=== PATIENT | female | born 1995 | race Caucasian/White ===

== ENCOUNTER → 2017-06-16 18:37 | Outpatient (CLI) | payer MEDICAID, SELFPAY | PROVIDERS: Family Provider Internal Medicine; PCP Internal Medicine; Visit Provider Obstetrics & Gynecology | DX: N76.0 Acute vaginitis (principal) | CPT/HCPCS: 87070; 87205 ==

== ENCOUNTER → 2017-06-25 14:26 | Outpatient (CLI) | payer MEDICAID, SELFPAY ==
[2017-06-25 16:42] LABS: Chlamydia Trachomatis by PCR Negative (Negative); Neisserai gonorrhoeae by PCR Negative (Negative); Probe Check PASS; Sample Adequacy Control PASS; Specimen Processing Control PASS
== END ==
PROVIDERS: Visit Provider Nurse Practitioner Women's Health
DX: N89.8 Other specified noninflammatory disorders of vagina (principal)
CPT/HCPCS: 87070; 87205; 87491; 87591

== ENCOUNTER 2017-08-20 17:15 | Emergency (ER) | payer MEDICAID, SELFPAY ==
--- NOTE | 2017-08-20 17:15 | DT_ITS ---
This patient was seen during an EMR downtime August 18, 2017 - August 25, 2017. This patient may have a combination of paper and electronic documentation or all paper documentation. All documentation is viewable within the e-chart portion of [employer] for each patient visit.
== END 2017-08-20 20:05 | disposition home or self-care (01) ==
LOC: ED 08-22 11:56
PROVIDERS: Emergency Provider Emergency Medicine
DX: G43.909 Migraine, unspecified, not intractable, without status migrainosus (principal); J45.909 Unspecified asthma, uncomplicated; F32.9 Major depressive disorder, single episode, unspecified
CPT/HCPCS: 96361; 96374; 96375; 99283

== ENCOUNTER 2017-08-27 20:50 | Emergency (ER) | payer MEDICAID, SELFPAY ==
[2017-08-27 20:52] VITALS: BP 126/65; PULSE 76; RESP 16; TEMP 36.6; O2SAT 98; BMI 30.2
--- NOTE | 2017-08-27 21:05 | RAD_ITS ---
STUDY: X-RAY - RIGHT KNEE REASON FOR EXAM: Female, 22 years old. Knee pain TECHNIQUE: 4 view(s) of the knee. COMPARISON: None. FINDINGS: Normal visualized distal femur. Normal visualized proximal tibia and fibula. Normal proximal tibiofibular articulation. Narrowed medial femorotibial compartment. Normal lateral femorotibial compartment. Narrowed lateral patellofemoral articulation. The soft tissue structures are unremarkable. RAD/Knee 4 or More Views IMPRESSION: Premature degenerative changes possibly on the basis of old trauma distal or cartilaginous injuries.. No evidence for acute fracture. MRI would be helpful for further evaluation if indicated Electronically Signed: Taco Cowan MD at 21:35 EDT , Service support ,
--- NOTE | 2017-08-27 22:19 | ED.DCSUM_ITS ---
- ER Visit Summary Date of Service: 08/27/17 Chief Complaint: [Right knee pain] History of Present Illness: The patient is a 22 F [who presents the emergency department with chronic right knee pain since she was a child. She was told she may need a knee replacement. 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 Ibuprofen and Tylenol are no longer working. He gives out on her frequently. She has had no trauma. She does have asthma but had no other medical problems and they are unsure why it is caused her so much problem] Physical Examination: [] Examination of the right lower extremity reveals a normal-appearing knee there is no effusion swelling or ecchymosis. There is no skin discoloration she has strong DP pulses. Anterior drawer sign is negative. She has mild pain with medial stress. She can fully extend. There is no obvious joint laxity Test Results: [] Emergency Department Course and Treatment: [X-ray shows premature degenerative changes and recommends the possibility of an MRI. The patient has never had an MRI in the past. She does have a primary care doctor. We will start her on Medrol she will wear a knee brace ice and elevate 3 times a day. She was given a work excuse for today and tomorrow and will follow up with Dr. Sue] Treatment Plan: [] Disposition: [disCharge] Impression: [Chronic right knee pain] This note was generated with [employer] dictation software. It may contain incorrect words, spelling, and punctuation that were not noted in review of the chart prior to signing ED Disposition - Plan for ED Patient: Chief Complaint: Lower Extremity Injury Referrals: Marisa Sue MD [Primary Care Provider] -
--- NOTE | 2017-08-27 22:19 | ED.DEP ---
ED Disposition - Plan for ED Patient: Chief Complaint: Lower Extremity Injury Instructions: ED Knee Pain [facility] Prescriptions: MethylPREDNISolone DosePak [Medrol DosePak] 4 mg PO UD #1 box Referrals: Marisa Sue MD [Primary Care Provider] - 5-7 Days Additional Instructions: wear sleeve knee brace ice 3 x daily for 15 minutes keep elevated in evening
== END 2017-08-27 22:28 | disposition home or self-care (01) ==
PROVIDERS: Emergency Provider Emergency Medicine; Family Provider Internal Medicine; PCP Internal Medicine
DX: M25.561 Pain in right knee (principal); G89.29 Other chronic pain; J45.909 Unspecified asthma, uncomplicated
CPT/HCPCS: 73564; 99282

== ENCOUNTER → 2017-09-16 13:05 | Outpatient (CLI) | payer MEDICAID, SELFPAY ==
[2017-09-16 16:51] LABS: Chlamydia Trachomatis by PCR Negative (Negative); Neisserai gonorrhoeae by PCR Negative (Negative); Probe Check PASS; Sample Adequacy Control PASS; Specimen Processing Control PASS
== END ==
PROVIDERS: Family Provider Internal Medicine; PCP Internal Medicine; Visit Provider Nurse Practitioner Women's Health
DX: Z11.3 Encounter for screening for infections with a predominantly sexual mode of transmission (principal)
CPT/HCPCS: 87491; 87591

== ENCOUNTER 2017-09-17 17:57 | Emergency (ER) | payer MEDICAID, SELFPAY ==
[2017-09-17 17:58] VITALS: BP 124/92; PULSE 66; RESP 14; TEMP 36.6; O2SAT 97; BMI 28.5
--- NOTE | 2017-09-17 18:10 | ED.VISSUMM ---
- ER Visit Summary Date of Service: 09/17/17 Chief Complaint: Pelvic cramping, vaginal bleed History of Present Illness: The patient is a 22 F 1 month history patient states vaginal bleeding. States spotting. Patient has Mirena for the past 6 months. Patient saw MARKETING DEVELOPMENT MANAGER office yesterday, pelvic exam performed, reported in records as light spotting. She had STD screening per her request which was sent out and pending. States that ultrasound scheduled for 1 week. She states no test was done due to having a Mirena. She reports that the string was not seen clearly. She states cramping increased today. 4 pads today. Tylenol and Motrin 5 hours ago. . No urinary symptoms. Physical Examination: General: Alert and oriented ?3, no acute distress HEENT: Normocephalic, atraumatic. Moist mucosa membranes. Normal conjunctiva. Neck: supple, nontender. Cardiovascular: Regular rate and rhythm, no murmurs Respiratory: Normal breath sounds, symmetric, no distress Abdomen: Soft, nontender, nondistended : Declined Extremities: Nontender, no edema, pulses intact ?4 Neuro: no focal neurological deficits. Test Results: HCG negative. UA leukocytes, slight white blood cells. Urine culture pending Emergency Department Course and Treatment: Patient with continued dysfunctional uterine bleeding. No clinical signs of anemia. Discussed offering baseline hemoglobin however she declines at this time. HCG obtained which was negative. Urine notes leukocytes and white blood cell count, how she is asymptomatic. I will send for urine culture. No antibiotics at this time. She was treated with Phenergan along with Bentyl in the ED. Symptoms resolved. She declined pelvic exam due to having one yesterday in the office. She will monitor her bleeding, she will keep her outpatient ultrasound as scheduled. She will follow-up as an outpatient. She return if any worsening symptoms. All questions were answered. Treatment Plan: [] Disposition: Discharge Impression: 1. Pelvic pain 2. Dysfunctional uterine bleeding This note was generated with [employer] dictation software. It may contain incorrect words, spelling, and punctuation that were not noted in review of the chart prior to signing ED Disposition - Plan for ED Patient: Disposition: Home or Assisted Living Chief Complaint: Vag Bleeding Diagnosis: Pelvic pain, Dysfunctional uterine bleeding Instructions: ED Bleed Irregular Vaginal, ED Pelvic Pain [facility] Prescriptions: proMETHazine tablet [Phenergan] 25 mg PO Q6H PRN PRN #10 tablet PRN Reason: Nausea Dicyclomine HCl [Bentyl] 10 mg PO Q8H PRN PRN #12 capsule PRN Reason: cramping Referrals: Marisa Sue MD [Primary Care Provider] - Ai Finnegan NP-C [Nurse Practitioner] - 1 Week Additional Instructions: Monitor vaginal bleeding. Keep your ultrasound appointment as an outpatient. Follow-up with your MARKETING DEVELOPMENT MANAGER.
--- NOTE | 2017-09-17 18:13 | ED.DCSUM_ITS ---
- ER Visit Summary Date of Service: 09/17/17 Chief Complaint: Pelvic cramping, vaginal bleed History of Present Illness: The patient is a 22 F 1 month history patient states vaginal bleeding. States spotting. Patient has Mirena for the past 6 months. Patient saw CHAIN LINK FENCE INSTALLER office yesterday, pelvic exam performed, reported in records as light spotting. She had STD screening per her request which was sent out and pending. States that ultrasound scheduled for 1 week. She states no test was done due to having a Mirena. She reports that the string was not seen clearly. She states cramping increased today. 4 pads today. Tylenol and Motrin 5 hours ago. . No urinary symptoms. Physical Examination: General: Alert and oriented ?3, no acute distress HEENT: Normocephalic, atraumatic. Moist mucosa membranes. Normal conjunctiva. Neck: supple, nontender. Cardiovascular: Regular rate and rhythm, no murmurs Respiratory: Normal breath sounds, symmetric, no distress Abdomen: Soft, nontender, nondistended : Declined Extremities: Nontender, no edema, pulses intact ?4 Neuro: no focal neurological deficits. Test Results: HCG negative. UA leukocytes, slight white blood cells. Urine culture pending Emergency Department Course and Treatment: Patient with continued dysfunctional uterine bleeding. No clinical signs of anemia. Discussed offering baseline hemoglobin however she declines at this time. HCG obtained which was negative. Urine notes leukocytes and white blood cell count, how she is asymptomatic. I will send for urine culture. No antibiotics at this time. She was treated with Phenergan along with Bentyl in the ED. Symptoms resolved. She declined pelvic exam due to having one yesterday in the office. She will monitor her bleeding, she will keep her outpatient ultrasound as scheduled. She will follow -up as an outpatient. She return if any worsening symptoms. All questions were answered. Treatment Plan: [] Disposition: Discharge Impression: 1. Pelvic pain 2. Dysfunctional uterine bleeding This note was generated with [employer] dictation software. It may contain incorrect words, spelling, and punctuation that were not noted in review of the chart prior to signing ED Disposition - Plan for ED Patient: Disposition: Home or Assisted Living Chief Complaint: Vag Bleeding Diagnosis: Pelvic pain, Dysfunctional uterine bleeding Instructions: ED Bleed Irregular Vaginal, ED Pelvic Pain [facility] Prescriptions: proMETHazine tablet [Phenergan] 25 mg PO Q6H PRN PRN #10 tablet PRN Reason: Nausea Dicyclomine HCl [Bentyl] 10 mg PO Q8H PRN PRN #12 capsule PRN Reason: cramping Referrals: Marisa Sue MD [Primary Care Provider] - Ai Finnegan NP-C [Nurse Practitioner] - 1 Week Additional Instructions: Monitor vaginal bleeding. Keep your ultrasound appointment as an outpatient. Follow-up with your CHAIN LINK FENCE INSTALLER.
[2017-09-17] MEDS: proMETHazine 25 MG Tablet PO (18:47)
[2017-09-17] MEDS: Dicyclomine 10 MG Capsule 20 MG PO (18:47)
[2017-09-17 19:27] LABS: Mucous, Urine 0 SEEN /hpf (<or=2+)
[2017-09-17 19:33] LABS: Color, Urine Yellow (Yellow); Glucose, Dipstick Normal (Normal); Leukocyte Esterase-Dipstick 500 /ul (Negative); Nitrite-Dipstick Negative (Negative); Occult Blood-Urine 50 /ul (Negative); Protein-Dipstick 30 mg/dl (Negative); Specific Gravity, Urine 1.025 (1.002-1.030); Urine Clarity Sl. Cloudy (Clear); Urine Urobilinogen 1 mg/dl (Normal)
[2017-09-17 19:34] LABS: Internal QC Validated? YES +Cl - CLEAR BKGD; Pregnancy, Urine Negative Negative
[2017-09-17 19:35] LABS: Urine Bilirubin Dipstick 1 mg/dL (Negative)
[2017-09-17 19:37] LABS: Ketone-Dipstick 150 mg/dl (Negative)
[2017-09-17 19:39] LABS: Amorphous Sediment 1+ URATE; Bacteria RARE /hpf (None Seen); Red Blood Cells-Urine 0-5 SEEN /hpf (0-5); Squamous Epithelial Cells - UA 0-5 SEEN /hpf (5-10); White Blood Cells 10-25 SEEN /hpf (0-5)
--- NOTE | 2017-09-17 19:40 | ED.RN ---
DR. WHITE AWARE OF 150 KETONES IN URINE
[2017-09-17 19:55] VITALS: RESP 18
--- NOTE | 2017-09-17 19:56 | NURSING ---
SENT HOME WITH RX FOR PHENERGAN/ BENTYL KNOWS THAT SHE CAN PICK THESE UP A THE PHARMACY. KNOWS TO FOLLOW UP WITH OB AND MONITOR VAGINAL BLEEDING. NO FURTHER QUESTIONS UPON D/C.
== END 2017-09-17 19:56 | disposition home or self-care (01) ==
PROVIDERS: Emergency Provider Emergency Medicine; Family Provider Internal Medicine; PCP Internal Medicine
DX: N93.8 Other specified abnormal uterine and vaginal bleeding (principal); R10.2 Pelvic and perineal pain; F41.9 Anxiety disorder, unspecified; Z79.899 Other long term (current) drug therapy
CPT/HCPCS: 81001; 81025; 87086; 87088; 99283

== ENCOUNTER → 2017-09-26 08:06 | Outpatient (CLI) | payer MEDICAID, SELFPAY ==
--- NOTE | 2017-09-26 08:08 | US_ITS ---
STUDY: ULTRASOUND OF THE FEMALE PELVIS - COMPLETE REASON FOR EXAM: Female, 22 years old. Irregular cycles. The patient has an IUD. LMP: September 19, 2017 TECHNIQUE: Transabdominal and Transvaginal TECHNICAL QUALITY: Adequate. COMPARISON: None. FINDINGS: The uterus is anteverted and is in a midline position. The uterus measures 8.7 cm x 5.7 cm x 3.7 cm. Normal uterine cervix. The endometrium measures 3.0 mm in thickness, and is hyperechoic. There is no demonstrated endometrial mass. There is no demonstrated myometrial mass. I.U.D. - The patient does have an I.U.D. The right ovary is visualized. The right ovary measures 3.1 cm x 2.9 cm x 1.8 cm. There is no right ovarian cyst or ovarian mass. There is no visualized right adnexal mass or complex lesion. There is normal arterial and normal venous vascularity. The left ovary is visualized. The left ovary measures 2.6 cm x 2.7 cm x 2.2 cm. A dominant follicle measuring 1.4 cm x 1.1 cm x 1.1 cm is seen in the left ovary. There is no visualized left adnexal mass or complex lesion. There is normal arterial and normal venous vascularity. There is minimal fluid in the cul-de-sac. The pre void volume of the bladder was 110 ml. Polycystic ovary disease: No. US/Pelvic (Non ) IMPRESSION: Dominant follicle seen in the left ovary. IUD seen within the endometrial cavity. Electronically Signed: Ammon Hunter MD at 14:30 EDT Tel [phone], Service support ,
--- NOTE | 2017-09-26 08:08 | US_ITS ---
STUDY: ULTRASOUND OF THE FEMALE PELVIS - COMPLETE REASON FOR EXAM: Female, 22 years old. Irregular cycles. The patient has an IUD. LMP: September 19, 2017 TECHNIQUE: Transabdominal and Transvaginal TECHNICAL QUALITY: Adequate. COMPARISON: None. FINDINGS: The uterus is anteverted and is in a midline position. The uterus measures 8.7 cm x 5.7 cm x 3.7 cm. Normal uterine cervix. The endometrium measures 3.0 mm in thickness, and is hyperechoic. There is no demonstrated endometrial mass. There is no demonstrated myometrial mass. I.U.D. - The patient does have an I.U.D. The right ovary is visualized. The right ovary measures 3.1 cm x 2.9 cm x 1.8 cm. There is no right ovarian cyst or ovarian mass. There is no visualized right adnexal mass or complex lesion. There is normal arterial and normal venous vascularity. The left ovary is visualized. The left ovary measures 2.6 cm x 2.7 cm x 2.2 cm. A dominant follicle measuring 1.4 cm x 1.1 cm x 1.1 cm is seen in the left ovary. There is no visualized left adnexal mass or complex lesion. There is normal arterial and normal venous vascularity. There is minimal fluid in the cul-de-sac. The pre void volume of the bladder was 110 ml. Polycystic ovary disease: No. US/Transvaginal Non- IMPRESSION: Dominant follicle seen in the left ovary. IUD seen within the endometrial cavity. Electronically Signed: Ammon Hunter MD at 14:30 EDT Tel [phone], Service support ,
== END ==
PROVIDERS: Family Provider Internal Medicine; PCP Internal Medicine; Visit Provider Nurse Practitioner Women's Health
DX: N92.6 Irregular menstruation, unspecified (principal)
CPT/HCPCS: 76830; 76856; 93976

== ENCOUNTER → 2018-01-15 12:00 | Outpatient (CLI) | payer MEDICAID, SELFPAY ==
[2018-01-22 12:49] LABS: HPV Reflexed? NOT INDICATED
== END ==
PROVIDERS: Family Provider Internal Medicine; PCP Internal Medicine; Referring Provider Nurse Practitioner Women's Health; Visit Provider Nurse Practitioner Women's Health
DX: Z12.4 Encounter for screening for malignant neoplasm of cervix (principal)
CPT/HCPCS: 87624; 88175; G0145

== ENCOUNTER 2018-03-28 05:58 | Emergency (ER) | payer SELFPAY ==
[2018-03-28 05:59] VITALS: BP 126/95; PULSE 71; RESP 18; TEMP 36.6; O2SAT 100; BMI 25.6
--- NOTE | 2018-03-28 06:00 | EKG12_ITS ---
Test Reason : CP Blood Pressure : / mmHG Vent. Rate : 069 BPM Atrial Rate : 069 BPM P-R Int : 146 ms QRS Dur : 084 ms QT Int : 378 ms P-R-T Axes : 069 006 009 degrees QTc Int : 405 ms Normal sinus rhythm Nonspecific T wave abnormality Abnormal ECG Confirmed by MATHEW KRAMER, PHILIPPE ([id number]), assistant production editor RAVINDER PRESTON ([id number]) on 03/31/2018 4:39:39 PM Referred By: RUBY Confirmed By:PHILIPPE CARMONA MD
[2018-03-28] MEDS: predniSONE 20 MG Tablet 40 MG PO (06:17)
--- NOTE | 2018-03-28 06:18 | ED.DCSUM_ITS ---
- ER Visit Summary Date of Service: 03/28/18 Chief Complaint: Cough and chest tightness History of Present Illness: The patient is a 22 F presenting for evaluation secondary to cough and chest tightness. Patient reports that over the course the last week she has been having a feeling of illness. This is been associated with nonproductive cough, tightness in her chest, sore throat and runny nose. She denies any presence of fevers. She denies any nausea or vomiting associated with this. Patient does have an underlying history of asthma does not currently have an inhaler. She has not been on steroids for over a year. Physical Examination: Vital signs are within normal limits, patient is afebrile. General: Patient is well-nourished well-developed and in no acute distress. Head: Normocephalic, atraumatic Eyes: Pupils equal round and reactive bilaterally, extra occular motion intact bialterally ENT: Moist mucous membranes Neck: Supple, no lymphadenopathy, no JVD, no meningismus CVS: Heart regular rate and rhythm, no murmurs, rubs or gallops, radial pulses 2+ bilaterally Resp: Respirations nondistressed, lung sounds clear bilaterally to frequent coughing is noted in Abdomen: Soft, nontender, nondistended, no palpable masses, normal bowel sounds Back: Nontender Extremities: Nontender, atraumatic, active full range of motion, no peripheral edema Skin: warm, no rashes, no petechia Neuro: Alert and oriented x 4, CN 2-12 intact, no lateralizing neurological defecits Psyc: Normal affect Test Results: None indicated Emergency Department Course and Treatment: Patient presented with chest tightness and a respiratory illness. Protocol EKG was obtained and showed sinus rhythm at [address] segments normal T waves no evidence of WPW or Brugada morphology. Patient was given a breathing treatment in the emergency department and prednisone. Presentation seems most consistent with asthmatic bronchitis. She will be discharged with albuterol and prednisone and follow-up with primary care. Disposition: Discharge Impression: 1. Asthmatic bronchitis This note was generated with [employer] dictation software. It may contain incorrect words, spelling, and punctuation that were not noted in review of the chart prior to signing ED Disposition - Plan for ED Patient: Disposition: Home or Assisted Living Chief Complaint: Chest Pain Diagnosis: Bronchitis Instructions: ED Bronchitis Asthmatic Prescriptions: Albuterol Inhaler [Ventolin Hfa] 1 - 2 puff INHALATION Q4H PRN PRN #1 inhaler PRN Reason: Wheezing Prednisone [Deltasone] 40 mg PO DAILY #10 tab Referrals: Marisa Sue MD [Primary Care Provider] - 1 Week if not improving
[2018-03-28 06:20] VITALS: BP 118/88; PULSE 73; RESP 16; O2SAT 99
[2018-03-28] MEDS: Albuterol 2.5 MG/3 ML VIAL.NEB. INHALATION (06:26)
[2018-03-28 06:28] VITALS: PULSE 79; RESP 18; O2SAT 100
== END 2018-03-28 06:36 | disposition home or self-care (01) ==
LOC: ED 06:34
PROVIDERS: Emergency Provider Emergency Medicine; Family Provider Internal Medicine; PCP Internal Medicine
DX: J45.909 Unspecified asthma, uncomplicated (principal)
CPT/HCPCS: 93005; 94640; 99283

== ENCOUNTER 2018-05-29 13:11 | Emergency (ER) | payer SELFPAY ==
[2018-05-29 13:11] VITALS: BP 112/71; PULSE 75; RESP 16; TEMP 36.7; O2SAT 96; BMI 24.5
--- NOTE | 2018-05-29 13:21 | ED.VISSUMM ---
- ER Visit Summary Date of Service: 05/29/18 Chief Complaint: Lower back pain/pelvic pain History of Present Illness: The patient is a 22 F who presents with low back pain and pelvic pain. Started today when she woke up. She states the pain is in her pelvic region. It radiates to her back. She denies any urinary symptoms. No vaginal bleeding or discharge. Her last menstrual period was 1 week ago. She has been trying ibuprofen and Tylenol which does help at times. She has a history of ovarian cyst in the past. She is currently not on control. She was on the Mirena but was taken out because of irregular bleeding. Physical Examination: Vital signs reviewed. HEENT exam unremarkable. Heart is regular rate and rhythm without murmurs. Lungs are clear to auscultation. Abdomen is soft with suprapubic tenderness. Extremities reveal no edema. Skin exam normal. Neurologic exam normal. Test Results: Urinalysis negative for infection. HCG negative Emergency Department Course and Treatment: Patient was initially given Toradol but she declined a needle so she was given naproxen. I do not see any acute pathologies. This could be an ovarian cyst which she has a history of. 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 Patient will be discharged with naproxen for pain. She will call Dr. Hammond for follow-up Treatment Plan: [] Disposition: Discharge Impression: Pelvic pain This note was generated with [employer] dictation software. It may contain incorrect words, spelling, and punctuation that were not noted in review of the chart prior to signing ED Disposition - Plan for ED Patient: Referrals: Marisa Sue MD [Primary Care Provider] -
[2018-05-29 13:31] LABS: Bacteria 0 SEEN /hpf (None Seen); Mucous, Urine 0 SEEN /hpf (<or=2+)
[2018-05-29 13:38] LABS: Color, Urine Yellow (Yellow); Glucose, Dipstick Normal (Normal); Ketone-Dipstick Negative (Negative); Leukocyte Esterase-Dipstick 25 /ul (Negative); Nitrite-Dipstick Negative (Negative); Occult Blood-Urine Negative /ul (Negative); Protein-Dipstick Negative (Negative); Urine Bilirubin Dipstick Negative (Negative); Urine Clarity Clear (Clear); Urine Urobilinogen Normal (Normal)
[2018-05-29 13:39] LABS: Internal QC Validated? YES +Cl - CLEAR BKGD; Pregnancy, Urine Negative Negative
[2018-05-29] MEDS: Naproxen 250 MG Tablet 500 MG PO (13:43)
[2018-05-29 13:44] LABS: Red Blood Cells-Urine 0 SEEN /hpf (0-5); Squamous Epithelial Cells - UA 0-5 SEEN /hpf (5-10); White Blood Cells 0-5 SEEN /hpf (0-5)
--- NOTE | 2018-05-29 13:54 | ED.DEP ---
ED Disposition - Plan for ED Patient: Disposition: Home or Assisted Living Instructions: ED Pelvic Pain [facility] Referrals: Marisa Sue MD [Primary Care Provider] -
== END 2018-05-29 14:29 | disposition home or self-care (01) ==
PROVIDERS: Emergency Provider Emergency Medicine; Family Provider Internal Medicine; PCP Internal Medicine
DX: R10.2 Pelvic and perineal pain (principal); J45.909 Unspecified asthma, uncomplicated
CPT/HCPCS: 81001; 81025; 96372; 99283

== ENCOUNTER 2018-05-31 04:01 | Emergency (ER) | payer SELFPAY ==
[2018-05-31 04:03] VITALS: BP 121/64; PULSE 85; RESP 18; TEMP 36.8; O2SAT 98; BMI 25.6
--- NOTE | 2018-05-31 04:29 | ED.VISSUMM ---
- ER Visit Summary Date of Service: 05/31/18 Chief Complaint: Back pain History of Present Illness: The patient is a 22 F history of asthma and prior ovarian cyst. States she has had lower back pain for approximately a week and she is concerned she has an ovarian cyst again. She recently stopped her control due to the ability to afford it. She denies any nausea or vomiting or diarrhea. No dysuria. She was seen in the ER several days ago had a negative urinalysis. She denies any vaginal bleeding or discharge. Her last menstrual period was approximately 1 week ago. She denies any fever. Physical Examination: Well-appearing young female. Vital signs are stable. She is afebrile. She does not look septic or toxic. She is in no distress. HEENT exam unremarkable. Neck nontender. Lungs clear to auscultation bilaterally. Heart regular rate and rhythm no murmur. Abdomen soft. Nondistended normal bowel sounds. No peritoneal signs. Right upper right lower quadrants of both unremarkable. Soft. No signs of obstruction. Patient moving all 4 extremities. Neurovascular intact. Back is nontender. No signs of trauma. Neurologically she is awake alert moving all 4 extremities. Negative straight leg raise. Negative cauda equina. Normal dorsi and plantar flexion. Normal sensation. Test Results: None. Patient had a recent urinalysis that was negative. Emergency Department Course and Treatment: Patient is currently taking NSAIDs. I offered her something stronger for the night which she deferred. I explained to her I could not get an ultrasound at this time but we can get that set up as an outpatient. She wants to follow-up with her RADIOLOGIST PHYSICIAN. Treatment Plan: Follow-up with Dr. Penn. Shon for pain. Disposition: Discharge Impression: Pelvic and back pain of uncertain etiology History of prior ovarian cyst This note was generated with [employer] software. It may contain incorrect words, spelling, and punctuation that were not noted in review of the chart prior to signing ED Disposition - Plan for ED Patient: Referrals: Marisa Sue MD [Primary Care Provider] -
--- NOTE | 2018-05-31 04:34 | ED.DCSUM_ITS ---
- ER Visit Summary Date of Service: 05/31/18 Chief Complaint: Back pain History of Present Illness: The patient is a 22 F history of asthma and prior ovarian cyst. States she has had lower back pain for approximately a week and she is concerned she has an ovarian cyst again. She recently stopped her control due to the ability to afford it. She denies any nausea or vomiting or diarrhea. No dysuria. She was seen in the ER several days ago had a negative urinalysis. She denies any vaginal bleeding or discharge. Her last menstrual period was approximately 1 week ago. She denies any fever. Physical Examination: Well-appearing young female. Vital signs are stable. She is afebrile. She does not look septic or toxic. She is in no distress. HEENT exam unremarkable. Neck nontender. Lungs clear to auscultation bilaterally. Heart regular rate and rhythm no murmur. Abdomen soft. Nondistended normal bowel sounds. No peritoneal signs. Right upper right lower quadrants of both unremarkable. Soft. No signs of obstruction. Patient moving all 4 extremities. Neurovascular intact. Back is nontender. No signs of trauma. Neurologically she is awake alert moving all 4 extremities. Negative straight leg raise. Negative cauda equina. Normal dorsi and plantar flexion. Normal sensation. Test Results: None. Patient had a recent urinalysis that was negative. Emergency Department Course and Treatment: Patient is currently taking NSAIDs. I offered her something stronger for the night which she deferred. I explained to her I could not get an ultrasound at this time but we can get that set up as an outpatient. She wants to follow-up with her MARKETING OPERATIONS CONSULTANT. Treatment Plan: Follow-up with Dr. Penn. Shon for pain. Disposition: Discharge Impression: Pelvic and back pain of uncertain etiology History of prior ovarian cyst This note was generated with [employer] software. It may contain incorrect words, spelling, and punctuation that were not noted in review of the chart prior to signing ED Disposition - Plan for ED Patient: Referrals: Marisa Sue MD [Primary Care Provider] -
--- NOTE | 2018-05-31 04:34 | ED.DEP ---
ED Disposition - Plan for ED Patient: Disposition: Home or Assisted Living Instructions: ED Flank Pain Uncertain Cause Referrals: Zeynep Hammond MD [STAFF PHYSICIAN] - As soon as possible Additional Instructions: Motrin for pain. Follow-up with your AIR HAMMER OPERATOR.
== END 2018-05-31 04:40 | disposition home or self-care (01) ==
PROVIDERS: Emergency Provider Emergency Medicine; Family Provider Internal Medicine; PCP Internal Medicine
DX: R10.2 Pelvic and perineal pain (principal); M54.5 Low back pain; J45.909 Unspecified asthma, uncomplicated; Z87.891 Personal history of nicotine dependence
CPT/HCPCS: 99283

== ENCOUNTER → 2018-06-08 17:04 | Outpatient (CLI) | payer SELFPAY ==
[2018-06-08 14:06] VITALS: BMI 25.6
[2018-06-09 00:14] LABS: Chlamydia Trachomatis by PCR Negative (Negative); Neisserai gonorrhoeae by PCR Negative (Negative); Probe Check PASS; Sample Adequacy Control PASS; Specimen Processing Control PASS
== END ==
PROVIDERS: Family Provider Internal Medicine; PCP Internal Medicine; Referring Provider Nurse Practitioner Women's Health; Visit Provider Nurse Practitioner Women's Health
DX: N76.0 Acute vaginitis (principal); A64 Unspecified sexually transmitted disease
CPT/HCPCS: 87070; 87205; 87491; 87591

== ENCOUNTER → 2018-07-15 | Outpatient (CLI) | payer SELFPAY ==
[2018-06-08 14:06] VITALS: BMI 25.6
[2018-07-15 20:31] LABS: hCG Titer Quant., Serum 458 mIU/mL (1-3)
== END | disposition home or self-care (01) ==
LOC: LAB 18:54
PROVIDERS: Family Provider Internal Medicine; PCP Internal Medicine; Referring Provider Nurse Practitioner Women's Health; Visit Provider Nurse Practitioner Women's Health
DX: N91.2 Amenorrhea, unspecified (principal)
CPT/HCPCS: 36415; 84702

== ENCOUNTER → 2018-07-17 | Outpatient (CLI) | payer SELFPAY ==
[2018-06-08 14:06] VITALS: BMI 25.6
[2018-07-17 20:38] LABS: hCG Titer Quant., Serum 1042 mIU/mL (1-3)
== END | disposition home or self-care (01) ==
LOC: LAB 19:05
PROVIDERS: Nurse Practitioner Women's Health; Family Provider Internal Medicine; PCP Internal Medicine; Visit Provider Obstetrics & Gynecology
DX: N92.6 Irregular menstruation, unspecified (principal)
CPT/HCPCS: 36415; 84702

== ENCOUNTER 2018-07-20 07:48 | Emergency (ER) | payer SELFPAY ==
[2018-06-08 14:06] VITALS: BMI 25.6
[2018-07-20 07:49] VITALS: BP 107/69; PULSE 69; RESP 16; TEMP 36.8; O2SAT 100; BMI 20.1
--- NOTE | 2018-07-20 07:54 | ED.VIS.UPPEX ---
History of Present Illness Chief Complaint: Upper Extremity Injury Informant: Patient Occurred: Yesterday Mechanism/Context: Fall Onset: Yesterday Context: Sudden Onset Timing: Continuous Quality of Pain: Dull, Aching, Throbbing Location: Right hand Current Severity: Mild Maximum Severity: Moderate Worsened by: Movement and touch Relieved by: Improves with rest Associated Symptoms: Negative for: Parasthesia, Weakness, Loss of Funtion Narrative: Patient is a 22-year-old [id number] woman who presents with injury to right hand secondary to fall last evening. She was carrying a basket of clothing when she fell. She landed on the right hand. She reports past history of fracture right wrist. She denies paresthesia, anesthesia or motor weakness. She is . She denied head trauma. She denies cardiac restaurant symptoms. She denies shoulder pain or elbow pain. Tetanus Immunization: 5-10 years Prior similar symptoms: Yes Recent Illness/Hospitalization: No Past Medical History - Allergies and Home Meds Allergies/Adverse Reactions: Allergies No Known Allergies Allergy (Verified 07/20/18 07:49) Primary Care Physician: Marisa Sue MD [Primary Care Provider] - Prior records reviewed: Yes Lives: Spouse/ Significant Other Smoking Status: Former smoker Alcohol: None Drugs: None Review of Systems General: Denies: Chills, Fever, Subjective Eyes: Denies: Visual changes - bilaterally, Blurred Vision - bilaterally Cardiovascular: Denies: Chest pain Respiratory: Denies: Dyspnea Gastrointestinal: Denies: Abdominal pain, Nausea, Vomiting Genitourinary: Denies: Dysuria, Hematuria Musculoskeletal: Reports: Extremity Pain - Right hand pain. Denies: Myalgias, Arthralgias, Neck pain, Back pain, Swelling Skin: Denies: Rash Neurological: Denies: Headache, Weakness, Parasthesia Hematologic: Denies: Easy bruising, Easy bleeding Physical Exam Vital Signs/Narrative: Vital Signs Temp Pulse Resp BP Pulse Ox 07/20/18 07:49 98.2 F 69 16 107/69 100 Inital Vital Signs reviewed: Yes Right Shoulder: Negative for: Abrasion, Contusion, Deformity, Edema, Hematoma, Limited ROM, - - There is no pain the patient over the proximal humerus, AC joint or clavicle. Right Humerus: Negative for: Abrasion, Contusion, Deformity, Edema, Hematoma, Limited ROM, - Right Elbow: Negative for: Abrasion, Contusion, Deformity, Edema, Hematoma, Limited ROM, - - There is no pain the patient over the medial or lateral epicondyles, olecranon process or radial head with supination pronation. Right Forearm: Negative for: Abrasion, Contusion, Deformity, Edema, Hematoma, Limited ROM, - Right Wrist: Negative for: Abrasion, Contusion, Deformity, Edema, Hematoma, Limited ROM, - - There is no pain palpation over the anatomical snuffbox. Right Hand: Contusion, Limited ROM, - - There is pain to palpation over the third and fourth metacarpal and the proximal phalanx of the right long finger. Patient has no open wounds noted.. Negative for: Abrasion, Deformity, Edema, Hematoma Right Finger: Contusion, Limited ROM, - - The extensor commonest tendon, extensor minimize and extensor indices tendon are intact. The flexor digitorum superficialis and flexor digitorum profundus are intact.. Negative for: Abrasion, Deformity, Edema, Hematoma General: Well nourished, Well developed Head: Normocephalic, Atraumatic Cardiovascular: Regular rate, Regular rhythm, No murmurs Respiratory: No distress Neurological: Alert, Oriented x3, Cranial nerves II-XII grossly intact, Normal Strength, Normal Sensation, Normal Gait, - - Axillary, median, radial and ulnar function are intact. Psychological: Normal affect Diagnostic/Tx/Re-eval Chest X-Ray - ED: Read by ED Physician Three-view x-ray of the right hand was obtained and interpreted by me as negative for fracture, subluxation or dislocation. There is a small cystic lesion head of the third metacarpal. Otherwise x-ray is unremarkable. - Medical Decision Making With objective findings and point tenderness will obtain x-ray to evaluate for fracture versus contusion. Neurovascularly patient is intact. ED Disposition - Plan for ED Patient: Disposition: Home or Assisted Living Diagnosis: Contusion of right hand, initial encounter Instructions: ED Contusion Hand Referrals: Marisa Sue MD [Primary Care Provider] - 1 Week if not improving
--- NOTE | 2018-07-20 08:08 | RAD_ITS ---
STUDY: X-RAY - RIGHT HAND REASON FOR EXAM: Female, 22 years old. Pain status post injury. TECHNIQUE: 4 view(s) of the hand. COMPARISON: February 10, 2014. FINDINGS: Normal radiocarpal articulation. Normal distal radioulnar joint. Normal visualized carpal bones. Normal carpal articulations Normal carpometacarpal articulation of the thumb. Normal second through fifth carpometacarpal joints. Normal metacarpi. Normal metacarpophalangeal joint of the thumb. Normal interphalangeal joint of the thumb. Normal proximal and distal phalanges of the thumb. Normal metacarpophalangeal joints of the second through fifth fingers. Normal proximal and distal interphalangeal joints of the second through fifth fingers. Normal phalanges of the second through fifth fingers. The soft tissue structures are unremarkable. RAD/Hand Min 3 Views IMPRESSION: Normal x-ray examination of the hand. Electronically Signed: Sami Lincoln MD at 8:52 EDT , Service support ,
== END 2018-07-20 08:52 | disposition home or self-care (01) ==
PROVIDERS: Emergency Provider Emergency Medicine; Family Provider Internal Medicine; PCP Internal Medicine
DX: O9A.219 Injury, poisoning and certain other consequences of external causes complicating pregnancy, unspecified trimester (principal); S60.221A Contusion of right hand, initial encounter; Z3A.00 Weeks of gestation of pregnancy not specified; W19.XXXA Unspecified fall, initial encounter; Y93.9 Activity, unspecified; Y92.9 Unspecified place or not applicable; Z87.891 Personal history of nicotine dependence
CPT/HCPCS: 73130; 99282

== ENCOUNTER 2018-07-22 09:44 | Emergency (ER) | payer SELFPAY ==
[2018-07-22 09:45] VITALS: BP 119/74; PULSE 92; RESP 18; TEMP 36.1; O2SAT 100; BMI 21.9
--- NOTE | 2018-07-22 10:03 | US_ITS ---
STUDY: FIRST TRIMESTER OBSTETRICAL ULTRASOUND REASON FOR EXAM: Female, 22 years old. Pelvic pain and spotting LMP: 06/09/2018 TECHNIQUE: Transvaginal TECHNICAL QUALITY: Adequate. PRIOR ULTRASOUND: None. FINDINGS: There is visualization of a single gestational sac in a normal intrauterine position. The mean sac diameter (MSD) measures 6.6 mm, indicating an estimated gestational age (EGA) of 5 weeks, 2 days. The gestational sac shape is within normal limits. There is a visualized yolk sac. The yolk sac measures 2.6 mm. The placenta is non-visualized. There is no demonstrated embryo ( pole). The estimated gestation age (EGA) by LMP is 6 weeks, 1 days. The estimated date of delivery (BLAINE) by LMP is 03/16/2019. The estimated gestation age (EGA) by US is 5 weeks, 2 days. The estimated date of delivery (BLAINE) by US is 03/22/2019. The uterus measures 9.3 x 6 x 4.6 cm. There is no demonstrated uterine fibroid. The cervix is closed. The right ovary measures 3.1 x 1.9 x 1.9 cm. Solid lesion in the right ovary, likely corpus luteum. There is no visualized right adnexal mass or complex lesion. The left ovary measures . 2.4 x 1.8 x 1.1 cm There is no visualized left adnexal mass or complex lesion. There is no fluid in the cul de sac. US/Transvaginal w/Preg US IMPRESSION: Intrauterine gestational sac with yolk sac. No identifiable pole at this time. Recommend correlation with quantitative beta hCG. Possibly too early to see embryo versus blighted ovum. Consider repeat exam to evaluate for viability Electronically Signed: Donavan Schilling DO at 11:40 EDT Tel , Service support ,
[2018-07-22 10:29] LABS: Mucous, Urine 0 SEEN /hpf (<or=2+)
[2018-07-22 10:33] LABS: Absolute Lymphocyte Count 1.46 X10^3/ul (0.83-4.51); Basophil# 0.04 X10^3/uL; Basophil% 0.6 % (0-1); Eosinophil# 0.03 X10^3/uL; Eosinophils% 0.5 % (0-5); Hemoglobin 13.7 g/dl (12.0-15.0); Lymphocyte # 1.46 X10^3/ul (4.0); Lymphocyte % 23.4 % (19-41); Mean Corp Hgb Conc 34.3 g/gl (32-36); Mean Corpuscular Hgb 28.9 pg (27.0-32.0); Mean Corpuscular Volume 84.4 fL (81-99); Mean Platelet Vol. 11.2 fl (6.2-12.0); Monocyte# 0.72 X10^3/uL; Monocyte% 11.5 % (0-10); Neutrophil # 3.98 X10^3/uL (2.7-7.7); Neutrophil % 63.8 % (47-70); POSITIVE COUNT NO; POSITIVE DIFFERENTIAL NO; POSITIVE MORPHOLOGY NO; Platelet Count 221 K/mm3 (150-450); RBC Distribution Width CV 12.9 % (11.6-14.6); Red Blood Count 4.74 M/mm3 (4.2-5.4); White Blood Count 6.2 K/mm3 (4.4-11.0)
[2018-07-22 10:39] LABS: Color, Urine Yellow (Yellow); Glucose, Dipstick Normal (Normal); Ketone-Dipstick 15 mg/dl (Negative); Leukocyte Esterase-Dipstick 500 /ul (Negative); Nitrite-Dipstick Negative (Negative); Occult Blood-Urine 150 /ul (Negative); Protein-Dipstick 15 mg/dl (Negative); Urine Bilirubin Dipstick Negative (Negative); Urine Clarity Sl. Cloudy (Clear); Urine Urobilinogen Normal (Normal)
--- NOTE | 2018-07-22 10:40 | ED.DCSUM_ITS ---
- ER Visit Summary Date of Service: 07/22/18 Chief Complaint: Vaginal bleeding and mental health eval History of Present Illness: The patient is a 22 F who is currently 5 to 6 weeks . Patient reports lower abdominal cramping and spotting when she wipes over the past day. She is G3, P1 Ab1. She does note increased stressors recently. She just found out she is and had a recent split from her . Patient is also asking for evaluation for mental health. She states that with all the increased stressors recently she made statements to a friend a few days ago that she wanted to . She denies any active suicidal ideation or any plan. Patient's friend reported called children's services and her daughter was taken away from her. Patient states that she needs a letter stating that she is receiving appropriate treatment and can have her daughter back. Physical Examination: Vital signs unremarkable. Patient sitting upright in bed no acute distress. She is intermittently tearful. Heart is regular rate and rhythm. Lung sounds are clear pedal and abdomen is soft with mild tenderness in the suprapubic area. No guarding or rebound. Psychiatric evaluation reveals depressed affect. She denies suicidal ideation currently. Test Results: CBC and chemistry studies are unremarkable. Urinalysis does show sign of infection with 25-50 white cells and 1+ bacteria. She does have 10-25 RBCs and hemorrhagic cystitis may be the blood that she is seeing rather than vaginal bleeding. Her quant is 3973. This is compared to a quant of 1042 on July 17. Tox and EtOH are negative. Pelvic ultrasound shows intrauterine gestational sac and yolk sac. No pole is yet identified. This is likely secondary to early dates. Emergency Department Course and Treatment: Urine culture has been sent patient be treated with a course of Keflex. Patient was seen by social work. Contact has been made with children's services as well as the counseling center. At this time patient is maintaining her daily activities and denies suicidality. She does have someone at home with her. I do feel comfortable with her having her child. This information will be relayed to children's services. Treatment Plan: [] Disposition: Discharge Impression: 1. Threatened AB 2. Cystitis 3. Depression This note was generated with [employer] software. It may contain incorrect words, spelling, and punctuation that were not noted in review of the chart prior to signing ED Disposition - Plan for ED Patient: Disposition: Home or Assisted Living Instructions: ED Depression, ED UTI Cystitis Female Prescriptions: Cephalexin [Keflex] 500 mg PO Q6 #20 capsule Referrals: Marisa Sue MD [Primary Care Provider] - Zeynep Hammond MD [STAFF PHYSICIAN] - As soon as possible Counseling,Center [GROUP OF PHYSICIANS] - As soon as possible
[2018-07-22 10:43] LABS: Anion Gap 3 (5-15); BUN 7 mg/dL (7-18); BUN/Creat Ratio 9.7 RATIO (10-20); Calcium,Total 8.6 mg/dL (8.5-10.1); Chloride 107 mmol/L (98-107); Creatinine, Serum 0.72 mg/dL (0.55-1.02); EST Glomerular Filtration Rate 106 mL/min (>60); Est Glom Filt Rate - Afr Amer 129 mL/min (>60); Estimated Creatinine Clearance 96.93 ml/min; Glucose 80 mg/dL (74-106); Potassium 3.6 mmol/L (3.5-5.1); Sodium Level 138 mmol/L (136-145)
[2018-07-22 10:45] LABS: Bacteria 1+ /hpf (None Seen); Red Blood Cells-Urine 10-25 SEEN /hpf (0-5); Squamous Epithelial Cells - UA 0-5 SEEN /hpf (5-10); White Blood Cells 25-50 SEEN /hpf (0-5)
[2018-07-22 11:03] LABS: hCG Titer Quant., Serum 3973 mIU/mL (1-3)
[2018-07-22 11:12] LABS: Amphetamine Urine VISTA NEGATIVE (<1000 ng/mL); Barbiturate Urine VISTA NEGATIVE (< 200 ng/mL); Benzodiazepine Urine VISTA NEGATIVE (< 200 ng/mL); Cocaine Urine VISTA NEGATIVE (< 300 ng/mL); Ecstacy Urine VISTA NEGATIVE (< 500 ng/mL); Methadone Urine VISTA NEGATIVE (< 300 ng/mL); PCP Urine VISTA NEGATIVE (< 25 ng/mL); THC Urine VISTA NEGATIVE (< 50 ng/mL); Vista UDS pH Range 5
[2018-07-22] MEDS: Cephalexin 250 MG Capsule 500 MG PO (12:27)
[2018-07-22 12:28] VITALS: BP 107/78; PULSE 90; RESP 18
--- NOTE | 2018-07-22 12:30 | CM.ED ---
Social Work Assessment Referral Date: 07/22/18 Date of Assessment: 07/22/18 Informant: DR. CROCKETT Reason for Consult: MENTAL HEALTH, CHILDREN SERVICES INVOLVEMENT Information obtained from: PATIENT, PATIENT'S EX SIGNIFICANT OTHER/FATHER OF BABY, AND WELDING OPERATOR THROUGH [facility], SARAH. Living Arrangements: PATIENT LIVES HOME WITH 2 Y/O DAUGHTER, EX SIG OTHER-SCARLETT PRYOR, SISTER AND BROTHER IN AN APARTMENT. Employment/Financial: PATIENT IS EMPLOYED WITH [employer] IN [facility]. Supports: PATIENT REPORTS GOOD SUPPORT FROM FAMILY AND FRIENDS. Social/Family Stressors: PATIENT STATES MUCH SOCIAL STRESS D/T RELATIONSHIP WITH EX SIGNIFICANT OTHER. PATIENT STATES DEPRESSION AND HORMONES HAS BEEN OUT OF CONTROL AND PATIENT HAD MADE SUICIDAL STATEMENT. PATIENT STATES SHE AND EX HAD DECIDED SHE NEEDED TO CALL FRIEND TO ASSIST WITH CHILD FOR A FEW DAYS. PATIENT REPORTS HER FRIEND THEN REPORTED CONCERNS WITH PATIENT'S MENTAL HEALTH TO CHILDREN SERVICES AND THEY FELT IT WAS BEST CHILD STAY IN THE CARE OF ALTERNATE CAREGIVER UNTIL PATIENT WAS EVALUATED D/T MENTAL HEALTH CONCERNS. Mental Health History: PATIENT ADMITS TO OF MENTAL HEALTH. Diagnoses: ANXIETY, DEPRESSION Medications: PREVIOUSLY PRESCRIBED ZOLOFT 100MG. PATIENT STATES HAS BEEN IN CONTACT WITH DR. DAVIDSON TO DISCUSS STARTING BACK ON MEDICATION. Substance Abuse History: PATIENT ADMITS TO OF ALCOHOL USE. PATIENT STATES HAS ABSTAINED FOR 1-2 YEARS. Interventions: SOCIAL SERVICE ASSESSMENT RELEASE OF INFORMATION FOR [facility] SIGNED BY PATIENT [place] [facility]IC[facility] RISK ASSESSMENT COMPLETED APPOINTMENT SCHEDULED WITH THE [facility]SELING C[facility] FOR 08/12/18 AT 3:30P. RESOURCES PROVIDED ON 24 HOUR CRISIS LINE IF NEEDED Assessment: PATIENT IS A 22 Y/O FEMALE WHO PRESENTS D/T WITH VAGINAL BLEEDING AND MENTAL HEALTH EVALUATION. CASE WAS DISCUSSED WITH DR. CROCKETT. THIS WORKER MET WITH PATIENT AND PATIENT'S EX SIG OTHER, SCARLETT PRYOR IN ROOM. PATIENT REQUESTED SCARLETT STAY IN ROOM DURING ASSESSMENT. PATIENT DENIES ANY CURRENT SUICIDAL IDEATION, PLAN OR INTENT. PATIENT STATES A FEW DAYS AGO WAS FEELING SUICIDAL D/T DEPRESSION AND SOCIAL ISSUES. PATIENT STATES EVEN THOUGH HAVING THOSE FEELINGS, DID NOT HAVE INTENT OR MEANS TO HARM SELF. PATIENT STATES REACHED OUT TO A FRIEND TO ASSIST WITH CARE FOR DAUGHTER. PATIENT REPORTS HAS ALREADY REACHED OUT TO PHYSICIAN TO START BACK ON ANTI DEPRESSANT. PATIENT REPORTS GOOD SUPPORT IN HER HOME FROM SISTER, BROTHER, AND EX. HEALTHY COPING SKILLS, SUPPORTS AND NEEDS DISCUSSED. PATIENT IN AGREEMENT WITH THIS WORKER SCHEDULING INTAKE APPOINTMENT WITH THE COUNSELING CENTER. PATIENT REQUESTING TIME BE AFTER WORK AROUND 3P. APPOINTMENT SCHEDULED FOR 08/12/18 AT 3:30P. PATIENT SIGNED RELEASE OF INFORMATION FOR THIS WORKER TO FAX REPORT FROM ED VISIT TO [facility]ILDREN [facility] COMMERCIAL CARPENTER, SARAH (P) [phone])[phone]. PLAN: HOME BEFORE WITH FOLLOW UP. SARAH WITH [facility] UPDATED.
== END 2018-07-22 12:33 | disposition home or self-care (01) ==
PROVIDERS: Emergency Provider Emergency Medicine; Family Provider Internal Medicine; PCP Internal Medicine
DX: O20.0 Threatened abortion (principal); O23.11 Infections of bladder in pregnancy, first trimester; O99.341 Other mental disorders complicating pregnancy, first trimester; F32.9 Major depressive disorder, single episode, unspecified; O99.511 Diseases of the respiratory system complicating pregnancy, first trimester; J45.909 Unspecified asthma, uncomplicated; O99.331 Smoking (tobacco) complicating pregnancy, first trimester; F17.200 Nicotine dependence, unspecified, uncomplicated; Z3A.00 Weeks of gestation of pregnancy not specified
CPT/HCPCS: 76817; 80048; 80307; 80320; 81001; 84702; 85025; 87086; 87088; 99284; A4216; G0480

== ENCOUNTER 2018-08-02 23:04 | Emergency (ER) | payer SELFPAY ==
[2018-08-02 23:05] VITALS: BP 119/78; PULSE 74; RESP 16; TEMP 36.6; O2SAT 99; BMI 23.8
--- NOTE | 2018-08-02 23:38 | ED.VISSUMM ---
- ER Visit Summary Date of Service: 08/02/18 Chief Complaint: Vaginal bleeding History of Present Illness: The patient is a 23 F who presents with vaginal bleeding for the past 2 days. Patient states the bleeding is been waxing and waning over the past 2 days. Patient states she is passing small dime size clots. Patient denies passing any tissue. Patient admits to some suprapubic cramping. Patient states she was recently diagnosed with a urinary tract infection and completed antibiotics for that. Patient states when she followed up she was started on a second course of antibiotics for her urinary tract infection. Patient admits to subjective fevers. Patient admits to nausea and vomiting which is related to the . Patient's blood type is a positive. Physical Examination: Vital signs are stable. Patient is afebrile. Patient is in no acute distress. Oral mucosa is pink and moist. Neck is supple. Trachea is midline. There is no JVD noted. Heart was regular rate and rhythm. Lungs are clear and equal bilaterally. Abdomen is soft. Bowel sounds are normal. There is some mild suprapubic tenderness. There is no rebound or guarding noted. Cranial nerves II through XII are intact. There are no focal motor or sensory deficits noted. Test Results: Urinalysis was obtained and was normal. Patient does not want any other laboratory testing done at this time. Patient states she had a quantitative hCG done within the last 48 hours and her level was over 4000. Patient states she has an appoint with her RAIL TRANSPORTATION TABELER next week and will follow up at that time. Emergency Department Course and Treatment: Patient was advised of her results. Patient was instructed to follow-up with her RAIL TRANSPORTATION TABELER as scheduled. Patient was instructed to return if worse in any way. Patient understood and was agreeable with the plan. All questions were answered. Disposition: Discharge home Impression: Threatened spontaneous This note was generated with [email or web address] dictation software. It may contain incorrect words, spelling, and punctuation that were not noted in review of the chart prior to signing ED Disposition - Plan for ED Patient: Disposition: Home or Assisted Living Diagnosis: Threatened spontaneous Instructions: ED Miscarriage Poss Referrals: Marisa Sue MD [Primary Care Provider] - Keep Cyndee appointment Additional Instructions: Complete vaginal rest. No tampons, no douching, and no intercourse until rechecked by your RAIL TRANSPORTATION TABELER doctor
[2018-08-02 23:46] LABS: Bacteria 0 SEEN /hpf (None Seen); Color, Urine Yellow (Yellow); Glucose, Dipstick Normal (Normal); Ketone-Dipstick Negative (Negative); Leukocyte Esterase-Dipstick 25 /ul (Negative); Mucous, Urine 0 SEEN /hpf (<or=2+); Nitrite-Dipstick Negative (Negative); Occult Blood-Urine Negative /ul (Negative); Protein-Dipstick Negative (Negative); Red Blood Cells-Urine 0 SEEN /hpf (0-5); Urine Bilirubin Dipstick Negative (Negative); Urine Clarity Clear (Clear); Urine Urobilinogen Normal (Normal); Urine pH 6.5 (5.0 - 8.0); White Blood Cells 0 SEEN /hpf (0-5)
--- NOTE | 2018-08-02 23:54 | ED.RN ---
PATIENT IS REFUSING THE IV AT THIS TIME SHE JUST HAD IT DONE AND WANTS TO WAIT ON THE URINE RESULTS.
[2018-08-03] LABS: Squamous Epithelial Cells - UA 0-5 SEEN /hpf (5-10)
[2018-08-03 00:27] VITALS: BP 102/72; PULSE 72; O2SAT 100
== END 2018-08-03 00:28 | disposition home or self-care (01) ==
PROVIDERS: Emergency Provider Emergency Medicine; Family Provider Internal Medicine; PCP Internal Medicine
DX: O20.0 Threatened abortion (principal); O23.40 Unspecified infection of urinary tract in pregnancy, unspecified trimester; O26.899 Other specified pregnancy related conditions, unspecified trimester; J02.9 Acute pharyngitis, unspecified; R21 Rash and other nonspecific skin eruption; O99.519 Diseases of the respiratory system complicating pregnancy, unspecified trimester; J45.909 Unspecified asthma, uncomplicated; O99.330 Smoking (tobacco) complicating pregnancy, unspecified trimester; F17.290 Nicotine dependence, other tobacco product, uncomplicated; Z3A.00 Weeks of gestation of pregnancy not specified
CPT/HCPCS: 81001; 99282

== ENCOUNTER → 2018-08-12 | Outpatient (CLI) | payer SELFPAY ==
[2018-08-12 11:16] VITALS: BMI 23.8
[2018-08-12 19:38] LABS: Chlamydia Trachomatis by PCR Negative (Negative); Neisserai gonorrhoeae by PCR Negative (Negative); Probe Check PASS; Sample Adequacy Control PASS; Specimen Processing Control PASS
== END | disposition home or self-care (01) ==
PROVIDERS: Family Provider Internal Medicine; PCP Internal Medicine; Referring Provider Nurse Practitioner Women's Health; Visit Provider Nurse Practitioner Women's Health
DX: Z34.90 Encounter for supervision of normal pregnancy, unspecified, unspecified trimester (principal)
CPT/HCPCS: 87086; 87088; 87491; 87591

== ENCOUNTER → 2018-10-09 | Outpatient (CLI) | payer OTHER, MEDICAID, SELFPAY ==
[2018-10-09 15:02] VITALS: BMI 23.8
[2018-10-09 16:30] LABS: Absolute Lymphocyte Count 1.29 X10^3/uL (0.83-4.51); Absolute Neutrophil Count 5.4 X10^3/uL (2.0-7.7); Basophil# 0.02 X10^3/uL; Basophil% 0.3 % (0-1); Eosinophil# 0.01 X10^3/uL; Eosinophils% 0.1 % (0-5); Hematocrit 37.1 % (37-47); Hemoglobin 12.7 g/dL (12.0-15.0); Lymphocyte # 1.29 X10^3/ul (4.0); Lymphocyte % 17.4 % (19-41); Mean Corp Hgb Conc 34.2 g/dL (32-36); Mean Corpuscular Hgb 29.6 pg (27.0-32.0); Mean Corpuscular Volume 86.5 fL (81-99); Mean Platelet Vol. 11.6 fl (6.2-12.0); Monocyte# 0.72 X10^3/uL; Monocyte% 9.7 % (0-10); NRBC Flagged by Analyzer 0 % (0-5); Neutrophil # 5.36 X10^3/uL (2.7-7.7); Neutrophil % 72.1 % (47-70); Platelet Count 212 K/mm3 (150-450); RBC Distribution Width CV 12.5 % (11.6-14.6); RBC Distribution Width SD 39.6 fl (35.1-43.9); Red Blood Count 4.29 M/mm3 (4.2-5.4); White Blood Count 7.4 K/mm3 (4.4-11.0)
[2018-10-09 17:43] LABS: HIV - WCH Non-Reactive (Nonreactive)
[2018-10-13 15:20] LABS: HEPATITIS B SURFACE AG Negative (Negative)
[2018-10-17 09:27] LABS: Rapid Plasmin Reagin (RPR) NONREACTIVE (NONREACTIVE)
== END | disposition home or self-care (01) ==
LOC: LAB 15:15
PROVIDERS: Family Provider Internal Medicine; PCP Internal Medicine; Referring Provider Nurse Practitioner Women's Health; Visit Provider Nurse Practitioner Women's Health
DX: Z34.90 Encounter for supervision of normal pregnancy, unspecified, unspecified trimester (principal)
CPT/HCPCS: 36415; 85025; 86592; 86703; 86762; 86850; 86900; 87340

== ENCOUNTER 2018-10-15 05:54 | Emergency (ER) | payer MEDICAID, SELFPAY ==
[2018-10-09 15:02] VITALS: BMI 23.8
[2018-10-15 05:55] VITALS: BP 98/71; PULSE 91; RESP 14; TEMP 36.9; O2SAT 99; BMI 23.2
--- NOTE | 2018-10-15 06:52 | ED.VIS.FEGU ---
History of Present Illness Chief Complaint: Vag Bld, Preg Informant: Patient Pain: Pelvic Pain Onset: Yesterday Context: Gradual Onset Timing: Continuous Quality: Cramping Location: Suprapubic - pelvic, nonlateralizing Current Severity: Mild Maximum Severity: Mild Worsened by: - - nothing Relieved by: - - nothing Issue: Vaginal bleeding Onset: Yesterday Context: Gradual Onset Timing: Continuous Current Severity: Spotting Maximum Severity: Spotting P: 2 Narrative: Patient is about 18 weeks . No recent injuries. No systemic symptoms except for nausea which she has had throughout the . Concerned that she was spotting and having pelvic cramping. Has had no other issues throughout this so far. - Past Medical History (1) Depression with anxiety Status: Chronic Comment: no med; consider zoloft 3rd trimester Past Medical History - Allergies and Home Meds Allergies/Adverse Reactions: Allergies No Known Allergies Allergy (Verified 10/09/18 14:46) Primary Care Physician: Zeynep Hammond MD [STAFF PHYSICIAN] - 3-5 Days Doctors: Dr. Hammond Smoking Status: Never smoker Review of Systems General: Denies: Chills, Fever, Sweats Eyes: Denies: Visual changes - bilaterally, Diplopia ENT: Denies: Rhinorrhea, Sore throat Cardiovascular: Denies: Chest pain, Palpitations Respiratory: Denies: Dyspnea, Cough, Dyspnea on exertion Gastrointestinal: Reports: Abdominal pain, Nausea. Denies: Vomiting, Diarrhea, Melena, Hematochezia Genitourinary: Reports: - - VBing. see HPI.. Denies: Dysuria, Hematuria, Frequency Musculoskeletal: Reports: Back pain - due to abd cramping radiating into low back. Denies: Swelling, Extremity Pain Skin: Denies: Rash, Wounds Neurological: Denies: Headache, Weakness, Numbness Physical Exam Vital Signs/Narrative: Vital Signs Temp Pulse Resp BP Pulse Ox 10/15/18 05:55 98.4 F 91 14 98/71 99 Inital Vital Signs reviewed: Yes General: Well nourished, Well developed Head: Normocephalic, Atraumatic Eyes: Perrl, EOMI ENT: Moist mucous membranes, No rhinorrhea Neck: Supple, Nontender Cardiovascular: Regular rate, Regular rhythm, No murmurs. Negative for: Tachycardia Respiratory: No distress, CTA bilaterally, Chest nontender Abdomen: Soft, Normal bowel sounds, Tender - mild, pelvis. Negative for: Nondistended - gravid uterus, almost to umbilicus, Guarding, Rebound tenderness Back: Nontender, Normal Inspection. Negative for: CVA tenderness Extremities: Nontender, No edema Skin: Normal color, No rash Neurological: Alert, Oriented x3, Cranial nerves II-XII grossly intact, Normal Strength, Normal Sensation Psychological: Normal affect, Normal Mood Diagnostic/Tx/Re-eval - Medical Decision/Diagnostic Studies Bedside ultrasound was very reassuring, baby has a good heartbeat, and is mobile. She is reassured and wants to leave, I advised that I am okay with that and I will certainly let her OB know, but she needs to have her blood drawn for blood typing in case she needs RhoGam. She understands this, and the fact that she will not be able to get RhoGam, if indicated, if she leaves prior to the result coming back. She was advised to follow-up with her OB. Procedures Procedure(s): Bedside obstetric ultrasound-good movement, heart tones 158 ED Disposition - Plan for ED Patient: Disposition: Home or Assisted Living Diagnosis: Threatened in second trimester Instructions: POSSIBLE MISCARRIAGE (Threatened ) Referrals: Zeynep Hammond MD [STAFF PHYSICIAN] - 3-5 Days
[2018-10-15 07:09] VITALS: BP 118/72; PULSE 61; RESP 15; O2SAT 98
== END 2018-10-15 07:17 | disposition home or self-care (01) ==
PROVIDERS: Emergency Provider Emergency Medicine; Family Provider Internal Medicine; PCP Internal Medicine
DX: O20.0 Threatened abortion (principal); O99.342 Other mental disorders complicating pregnancy, second trimester; F41.8 Other specified anxiety disorders; Z3A.18 18 weeks gestation of pregnancy
CPT/HCPCS: 36415; 86900; 99282

== ENCOUNTER → 2018-12-17 12:25 | Outpatient (CLI) | payer MEDICAID, SELFPAY ==
[2018-12-17 11:57] VITALS: BMI 23.2
[2018-12-17 14:21] LABS: Absolute Lymphocyte Count 1.36 X10^3/uL (0.83-4.51); Absolute Neutrophil Count 5.9 X10^3/uL (2.0-7.7); Basophil# 0.03 X10^3/uL; Basophil% 0.4 % (0-1); Eosinophil# 0.02 X10^3/uL; Eosinophils% 0.2 % (0-5); Hematocrit 32.4 % (37-47); Hemoglobin 10.6 g/dL (12.0-15.0); Lymphocyte # 1.36 X10^3/ul (4.0); Lymphocyte % 16.8 % (19-41); Mean Corp Hgb Conc 32.7 g/dL (32-36); Mean Corpuscular Hgb 28.8 pg (27.0-32.0); Mean Platelet Vol. 11.6 fl (6.2-12.0); Monocyte# 0.72 X10^3/uL; Monocyte% 8.9 % (0-10); NRBC Flagged by Analyzer 0 % (0-5); Neutrophil # 5.92 X10^3/uL (2.7-7.7); Neutrophil % 73.1 % (47-70); Platelet Count 180 K/mm3 (150-450); RBC Distribution Width CV 12.1 % (11.6-14.6); RBC Distribution Width SD 39.2 fl (35.1-43.9); Red Blood Count 3.68 M/mm3 (4.2-5.4); White Blood Count 8.1 K/mm3 (4.4-11.0)
[2018-12-17 14:34] LABS: Glucose Challenge Gest 1H 50g 74 mg/dL (70-140)
== END ==
PROVIDERS: Family Provider Internal Medicine; PCP Internal Medicine; Referring Provider Nurse Practitioner Women's Health; Visit Provider Nurse Practitioner Women's Health
DX: Z34.80 Encounter for supervision of other normal pregnancy, unspecified trimester (principal)
CPT/HCPCS: 36415; 82950; 85025

== ENCOUNTER → 2019-01-19 12:12 | Outpatient (CLI) | payer MEDICAID, SELFPAY ==
[2019-01-11 11:31] VITALS: BMI 23.2
--- NOTE | 2019-01-19 12:13 | US_ITS ---
STUDY: SECOND AND THIRD TRIMESTER OBSTETRICAL ULTRASOUND - LIMITED REASON FOR EXAM: Female, 23 years old well-being. LMP: June 09, 2018 PRIOR ULTRASOUND: Comparison is made with prior examination dated July 22, 2018. TECHNIQUE: Transabdominal TECHNICAL QUALITY: Adequate. FINDINGS: There is a single intrauterine fetus. The fetus is in a breech presentation. There is demonstrated cardiac activity with a heart rate of 141 bpm. There is a normal amniotic fluid volume. The largest amniotic fluid pocket measures 5 cm x 7.2 cm. The amniotic fluid index (LULI) is 17.23 cm. The placenta is anterior in location and is not low lying. There are Grade 2 placental changes. The cervix measures 3.4 cm in length. BIOMETRY: BPD: 7.98 cm: 32 weeks, 0 days HC: 29.33 cm: 32 weeks, 2 days AC: 26.98 cm: 31 weeks, 0 days FL: 6.01 cm: 31 weeks, 2 days Age by LMP: 32 weeks, 0 days. BLAINE by LMP: March 16, 2019. age by prior US: 31 weeks, 5 days. BLAINE by prior US: 2019. age by current US: 31 weeks, 6 days. BLAINE by current US: March 17, 2019. Estimated weight: 1749 grams, +/- 259 grams, 22 percentile. US/OB Limited With Biometrics IMPRESSION: Single live intrauterine gestation with a mean gestational age of 31 weeks and 5 days. The measurements obtained today fall within the normal expected range. Electronically Signed: Ammon Hunter, at 10:41 EST , Service support ,
== END ==
PROVIDERS: Family Provider Internal Medicine; PCP Internal Medicine; Referring Provider Obstetrics & Gynecology; Visit Provider Obstetrics & Gynecology
DX: Z34.80 Encounter for supervision of other normal pregnancy, unspecified trimester (principal)
CPT/HCPCS: 76816

== ENCOUNTER 2019-02-14 13:45 | Outpatient (CLI) | payer MEDICAID, SELFPAY ==
[2019-02-09 14:08] VITALS: BMI 23.2
[2019-02-14 14:09] LABS: Mucous, Urine 0 SEEN /hpf (<or=2+); Red Blood Cells-Urine 0 SEEN /hpf (0-5)
[2019-02-14 14:13] LABS: Color, Urine Yellow (Yellow); Glucose, Dipstick Normal (Normal); Ketone-Dipstick Negative (Negative); Leukocyte Esterase-Dipstick 500 /ul (Negative); Nitrite-Dipstick Negative (Negative); Occult Blood-Urine Negative /ul (Negative); Protein-Dipstick Negative (Negative); Specific Gravity, Urine 1.015 (1.002-1.030); Urine Bilirubin Dipstick Negative (Negative); Urine Clarity Cloudy (Clear); Urine Urobilinogen Normal (Normal)
[2019-02-14 14:18] VITALS: BMI 26.2
[2019-02-14 14:20] LABS: Amorphous Sediment 3+; Bacteria 2+ /hpf (None Seen); Squamous Epithelial Cells - UA 5-10 SEEN /hpf (5-10); White Blood Cells 10-25 SEEN /hpf (0-5)
[2019-02-14 14:43] LABS: ROM Internal Control Test YES-OK TO RESULT pt. (Internal QC); ROM Patient Test Negative (Negative)
[2019-02-14] MEDS: Lactated Ringers 1,000 ML 999 ML IV (14:50)
[2019-02-14 15:13] LABS: Absolute Neutrophil Count 5.5 X10^3/uL (2.0-7.7); Basophil# 0.02 X10^3/uL; Basophil% 0.3 % (0-1); Eosinophil# 0.02 X10^3/uL; Eosinophils% 0.3 % (0-5); Hematocrit 33.2 % (37-47); Hemoglobin 10.7 g/dL (12.0-15.0); Lymphocyte % 17.2 % (19-41); Mean Corp Hgb Conc 32.2 g/dL (32-36); Mean Corpuscular Hgb 26.2 pg (27.0-32.0); Mean Corpuscular Volume 81.2 fL (81-99); Mean Platelet Vol. 11.5 fl (6.2-12.0); Monocyte# 0.72 X10^3/uL; Monocyte% 9.5 % (0-10); NRBC Flagged by Analyzer 0 % (0-5); Neutrophil # 5.48 X10^3/uL (2.7-7.7); Neutrophil % 72.2 % (47-70); Platelet Count 213 K/mm3 (150-450); RBC Distribution Width CV 12.4 % (11.6-14.6); RBC Distribution Width SD 36.5 fl (35.1-43.9); Red Blood Count 4.09 M/mm3 (4.2-5.4); White Blood Count 7.6 K/mm3 (4.4-11.0)
[2019-02-14] MEDS: Acetaminophen 500 MG Tablet 1000 MG PO (15:29)
[2019-02-14] MEDS: Lactated Ringers 1,000 ML 50 ML IV (16:30)
[2019-02-14 16:46] LABS: Group B Strep DNA By PCR POSITIVE (Negative); Probe Check PASS
[2019-02-14] MEDS: Betamethasone/Betamethasone 30 MG/5 ML Vial 12 MG IM (17:02)
[2019-02-15] MEDS: Acetaminophen 500 MG Tablet 1000 MG PO (12:24)
[2019-02-15] MEDS: Lactated Ringers 1,000 ML 50 ML IV (12:25)
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
--- NOTE | 2019-02-15 16:25 | OB.TRI.NOTE ---
- Problem List (1) Threatened labor Status: Acute (2) Positive GBS test Status: Acute Comment: Penicillin at delivery (3) Anemia affecting Status: Acute Qualifiers: Comment: Start iron (4) General counselling and advice on contraception Status: Acute Comment: Title 19 form signed. (5) Status: Acute Qualifiers: Comment: normal anatomy (6) Nausea/vomiting in Status: Acute (7) Supervision of other normal Status: Acute Comment: PRR BLAINE 03/16/19 girl Stefanie Chaudhary (Dolly adopted) FOB: Abundio (8) Depression with anxiety Status: Chronic Comment: increase zoloft to 100mg 01/27 History of Present Illness Date of Service: 02/15/19 Was patient seen by the physician?: Yes Reason For Visit: LABOR AND DELIVERY Date of Service: 02/15/19 Final BLAINE: 03/16/19 Gestational age: 35 Weeks and 6 Days History of Present Illness: 23 yo @ 35w5d presents with contractions, no vb lof good fm. made initial cervical change in tiage from 3 to 4-5 cm. stable now though Allergies No Known Allergies Allergy (Verified 02/09/19 14:08) - Pertinent Past Medical History Medical History: Past Medical History (Last Reviewed 02/09/19 @ 14:08 by Micheline Woods) Depression with anxiety (Chronic) increase zoloft to 100mg 01/27 Asthma Depression Surgical History: Past Surgical History (Last Reviewed 02/09/19 @ 14:08 by Micheline Woods) History of wisdom tooth extraction, class II edentulism Laboratory Studies: Laboratory Tests 02/14/19 02/14/19 02/14/19 Range/Units 15:00 15:00 15:00 WBC 7.6 (4.4-11.0) K/mm3 RBC 4.09 L (4.2-5.4) M/mm3 Hgb 10.7 L (12.0-15.0) g/dL Hct 33.2 L (37-47) % MCV 81.2 (81-99) fL MCH 26.2 L (27.0-32.0) pg MCHC 32.2 (32-36) g/dL RDW Std Deviation 36.5 (35.1-43.9) fl RDW Coeff of Debbie 12.4 (11.6-14.6) % Plt Count 213 (150-450) K/mm3 MPV 11.5 (6.2-12.0) fl Immature Gran % (Auto) 0.500 (0.0-0.9) % Neut % (Auto) 72.2 H (47-70) % Lymph % (Auto) 17.2 L (19-41) % [place] % (Auto) 9.5 (0-10) % Eos % (Auto) 0.3 (0-5) % Baso % (Auto) 0.3 (0-1) % Absolute Neuts (auto) 5.5 (2.0-7.7) X10^3/uL Absolute Lymphs (auto) 1.30 (0.83-4.51) X10^3/uL Nucleated RBC % 0 (0-5) % Urine Color (Yellow) Urine Clarity (Clear) Urine pH (5.0 - 8.0) Ur Specific Sol[place] (1.002-1.030) Urine Protein (Negative) mg/dl Urine Glucose (UA) (Normal) mg/dl Urine Ketones (Negative) mg/dl Urine Occult Blood (Negative) /ul Urine Nitrite (Negative) Urine Bilirubin (Negative) mg/dL Urine Urobilinogen (Normal) mg/dl Ur Leukocyte Esterase (Negative) /ul Urine RBC (0-5) /hpf Urine WBC (0-5) /hpf Ur Squamous Epith Cells (5-10) /hpf Amorphous Sediment Urine Bacteria (None Seen) /hpf Urine Mucus (<or=2+) /hpf Vag Amniotic Fld Detect (Negative) Group B Strep DNA POSITIVE H (Negative) Specimen Comment Not Reportable Blood Type A POSITIVE Antibody Screen NEGATIVE 02/14/19 02/14/19 Range/Units 14:10 13:50 WBC (4.4-11.0) K/mm3 RBC (4.2-5.4) M/mm3 Hgb (12.0-15.0) g/dL Hct (37-47) % MCV (81-99) fL MCH (27.0-32.0) pg MCHC (32-36) g/dL RDW Std Deviation (35.1-43.9) fl RDW Coeff of Debbie (11.6-14.6) % Plt Count (150-450) K/mm3 MPV (6.2-12.0) fl Immature Gran % (Auto) (0.0-0.9) % Neut % (Auto) (47-70) % Lymph % (Auto) (19-41) % [place] % (Auto) (0-10) % Eos % (Auto) (0-5) % Baso % (Auto) (0-1) % Absolute Neuts (auto) (2.0-7.7) X10^3/uL Absolute Lymphs (auto) (0.83-4.51) X10^3/uL Nucleated RBC % (0-5) % Urine Color Yellow (Yellow) Urine Clarity Cloudy (Clear) Urine pH 7.0 (5.0 - 8.0) Ur Specific [place] 1.015 (1.002-1.030) Urine Protein Negative (Negative) mg/dl Urine Glucose (UA) Normal (Normal) mg/dl Urine Ketones Negative (Negative) mg/dl Urine Occult Blood Negative (Negative) /ul Urine Nitrite Negative (Negative) Urine Bilirubin Negative (Negative) mg/dL Urine Urobilinogen Normal (Normal) mg/dl Ur Leukocyte Esterase 500 H (Negative) /ul Urine RBC 0 SEEN (0-5) /hpf Urine WBC 10-25 SEEN (0-5) /hpf Ur Squamous Epith Cells 5-10 SEEN (5-10) /hpf Amorphous Sediment 3+ Urine Bacteria 2+ (None Seen) /hpf Urine Mucus 0 SEEN (<or=2+) /hpf Vag Amniotic Fld Detect Negative (Negative) Group B Strep DNA (Negative) Specimen Comment Blood Type Antibody Screen Review of Systems Constitutional: Denies: Fever, Malaise Eyes: Denies: Blurred vision, Vision Change HEENT: Denies: Head Aches, Visual Changes Gastrointestinal: Reports: Nausea. Denies: Abdominal Pain, Diarrhea, Vomiting Gynecological: Denies: Vaginal bleeding, Vaginal discharge Physical Exam General: Alert, Oriented x3 HEENT: Normocephalic Cardiovascular: Regular rate Lungs: Normal air movement Abdomen: Soft, Non Tender, Gravid NST - FHR Rate Baby A Baseline: 130 Variability:: Moderate Accelerations:: 15 x 15 Decelerations:: None NST Reactive:: Yes FHR Category:: Category I Uterine Activity:: irregular Impression/Plan 23 yo @ 35 weeks with threatened labor Multi Select Codes - Visit Charges Observation E&M Codin Observation care discharge - Urinary/Genital Urinary/Genital CPT Codes: 04940-96 non-stress test Interp
[2019-02-15] MEDS: Betamethasone/Betamethasone 30 MG/5 ML Vial 12 MG IM (17:02)
== END 2019-02-15 17:35 | disposition home or self-care (01) ==
LOC: OBT 16:11 → WP 16:19
PROVIDERS: Family Provider Internal Medicine; PCP Internal Medicine; Referring Provider Obstetrics & Gynecology; Visit Provider Obstetrics & Gynecology
DX: O47.03 False labor before 37 completed weeks of gestation, third trimester (principal); O99.343 Other mental disorders complicating pregnancy, third trimester; F41.8 Other specified anxiety disorders; O99.013 Anemia complicating pregnancy, third trimester; D64.9 Anemia, unspecified; O99.513 Diseases of the respiratory system complicating pregnancy, third trimester; J45.909 Unspecified asthma, uncomplicated; Z3A.35 35 weeks gestation of pregnancy; Z79.899 Other long term (current) drug therapy
CPT/HCPCS: 96361; 96365; 96367; 36415; 59025; 59050; 76815; 81001; 84112; 85025; 86850; 86900; 86901; 87653; 96372; 99218; J7120; G0378; J0290; J0702

== ENCOUNTER 2019-02-17 13:55 | Outpatient (CLI) | payer MEDICAID, SELFPAY ==
[2019-02-17 14:16] VITALS: BMI 26.2
[2019-02-17 14:38] LABS: ROM Internal Control Test YES-OK TO RESULT pt. (Internal QC); ROM Patient Test Negative (Negative)
--- NOTE | 2019-02-19 04:00 | OB.TRI.NOTE ---
- Problem List (1) Threatened labor Status: Acute History of Present Illness Date of Service: 02/19/19 Was patient seen by the physician?: No Reason For Visit: SROM History of Present Illness: questionable ROM and irregular ctx Allergies No Known Allergies Allergy (Verified 02/17/19 14:15) - Pertinent Past Medical History Medical History: Past Medical History (Last Reviewed 02/09/19 @ 14:08 by Micheline Woods) Depression with anxiety (Chronic) increase zoloft to 100mg 01/27 Asthma Depression Surgical History: Past Surgical History (Last Reviewed 02/09/19 @ 14:08 by Micheline Woods) History of wisdom tooth extraction, class II edentulism Laboratory Studies: Laboratory Tests 02/17/19 Range/Units 14:00 Vag Amniotic Fld Detect Negative (Negative) NST - FHR Rate Baby A Baseline: 130 Variability:: Moderate Decelerations:: None NST Reactive:: Yes FHR Category:: Category I Uterine Activity:: irregular Impression/Plan threatened PTL reactive NST no cervical change negative ROM plus dc home movement and labor precautions reviewed. Multi Select Codes - Urinary/Genital Urinary/Genital CPT Codes: 66315-55 non-stress test Interp
== END 2019-02-17 15:00 | disposition home or self-care (01) ==
LOC: WPOUT 13:58 → WP 13:59
PROVIDERS: Family Provider Internal Medicine; PCP Internal Medicine; Referring Provider Obstetrics & Gynecology; Visit Provider Obstetrics & Gynecology
DX: O60.00 Preterm labor without delivery, unspecified trimester (principal); O99.519 Diseases of the respiratory system complicating pregnancy, unspecified trimester; J45.909 Unspecified asthma, uncomplicated; O99.340 Other mental disorders complicating pregnancy, unspecified trimester; F41.8 Other specified anxiety disorders; Z3A.00 Weeks of gestation of pregnancy not specified; Z79.899 Other long term (current) drug therapy
CPT/HCPCS: 59025; 59050; 84112; 99218; G0378

== ENCOUNTER → 2019-02-19 14:59 | Outpatient (CLI) | payer MEDICAID, SELFPAY ==
[2019-02-19 09:33] VITALS: BMI 26.2
--- NOTE | 2019-02-19 15:01 | US_ITS ---
STUDY: SECOND AND THIRD TRIMESTER OBSTETRICAL ULTRASOUND REASON FOR EXAM: Female, 23 years old evaluate growth LMP: 06/09/2018 TECHNIQUE: Transabdominal TECHNICAL QUALITY: Adequate. PRIOR ULTRASOUND: 01/19/2019 FINDINGS: There is a single intrauterine fetus. The fetus is in a cephalic presentation. There is demonstrated cardiac activity with a heart rate of 149 bpm. There is a normal amniotic fluid volume. The largest amniotic fluid pocket measures 5.9 cm. The amniotic fluid index (LULI) is 17.3 cm. The placenta is anterior in location and is not low lying. There are Grade 3 placental changes. The cervixThe adnexal regions are not visualized. BIOMETRY: BPD: 8.7 cm: 35 weeks, 2 days HC: 32.0 cm: 36 weeks, 1 days AC: 32.0 cm: 36 weeks, 0 days FL: 6.9 cm: 35 weeks, 2 days CI: 79% FL/BPD: 79% FL/AC: 21% HC/AC: 1.00 age by current US: 35 weeks, 5 days. BLAINE by current US: 03/21/2019. Estimated weight: 2741 grams, +/- 400 grams, 33 %. age by prior US: 36 weeks, 2 days. BLAINE by prior US: 03/17/2019. Age by LMP: 36 weeks, 3 days. BLAINE by LMP: 03/16/2019. US/OB Limited With Biometrics IMPRESSION: Single viable intrauterine of approximately 35 weeks 5 days gestational age by crown ultrasonographic measurement. The fetus is in cephalic presentation. Electronically Signed: Noble Christiansen MD at 16:34 EST , Service support ,
== END ==
PROVIDERS: Family Provider Internal Medicine; PCP Internal Medicine; Referring Provider Obstetrics & Gynecology; Visit Provider Obstetrics & Gynecology
DX: Z34.90 Encounter for supervision of normal pregnancy, unspecified, unspecified trimester (principal)
CPT/HCPCS: 76816

== ENCOUNTER 2019-02-22 11:50 | Outpatient (CLI) | payer MEDICAID, SELFPAY ==
[2019-02-19 09:33] VITALS: BMI 26.2
[2019-02-22 12:15] VITALS: BMI 25.7
[2019-02-22 12:36] LABS: ROM Internal Control Test YES-OK TO RESULT pt. (Internal QC); ROM Patient Test Negative (Negative)
[2019-02-22 13:28] LABS: Absolute Lymphocyte Count 1.15 X10^3/uL (0.83-4.51); Absolute Neutrophil Count 7.5 X10^3/uL (2.0-7.7); Basophil# 0.03 X10^3/uL; Basophil% 0.3 % (0-1); Eosinophil# 0.24 X10^3/uL; Eosinophils% 2.4 % (0-5); Hematocrit 30.5 % (37-47); Hemoglobin 9.6 g/dL (12.0-15.0); Lymphocyte # 1.15 X10^3/ul (4.0); Lymphocyte % 11.6 % (19-41); Mean Corp Hgb Conc 31.5 g/dL (32-36); Mean Corpuscular Hgb 25.3 pg (27.0-32.0); Mean Corpuscular Volume 80.5 fL (81-99); Mean Platelet Vol. 10.8 fl (6.2-12.0); Monocyte# 0.95 X10^3/uL; Monocyte% 9.6 % (0-10); NRBC Flagged by Analyzer 0 % (0-5); Neutrophil # 7.48 X10^3/uL (2.7-7.7); Neutrophil % 75.3 % (47-70); Platelet Count 206 K/mm3 (150-450); RBC Distribution Width CV 12.6 % (11.6-14.6); RBC Distribution Width SD 36.4 fl (35.1-43.9); Red Blood Count 3.79 M/mm3 (4.2-5.4); White Blood Count 9.9 K/mm3 (4.4-11.0)
--- NOTE | 2019-02-28 04:17 | OB.TRI.PN_ITS ---
Progress Notes Date of Service: 02/22/19 Progress Note: Patient presents for triage evaluation secondary to a small loss of fluid and contractions FHT: 140 moderate variability reactive no decelerations category I tracing [place]: Irregular contractions Assessment and plan: False labor, negative ROM plus and no cervical change reactive NST, reassuring maternal and status patient discharged to home to follow-up as scheduled. See problem list details for additional plan information. Laboratory Studies: Laboratory Tests 02/22/19 02/22/19 Range/Units 13:20 12:06 WBC 9.9 (4.4-11.0) K/mm3 RBC 3.79 L (4.2-5.4) M/mm3 Hgb 9.6 L (12.0-15.0) g/dL Hct 30.5 L (37-47) % MCV 80.5 L (81-99) fL MCH 25.3 L (27.0-32.0) pg MCHC 31.5 L (32-36) g/dL RDW Std Deviation 36.4 (35.1-43.9) fl RDW Coeff of Debbie 12.6 (11.6-14.6) % Plt Count 206 (150-450) K/mm3 MPV 10.8 (6.2-12.0) fl Immature Gran % (Auto) 0.800 (0.0-0.9) % Neut % (Auto) 75.3 H (47-70) % Lymph % (Auto) 11.6 L (19-41) % Sierra % (Auto) 9.6 (0-10) % Eos % (Auto) 2.4 (0-5) % Baso % (Auto) 0.3 (0-1) % Absolute Neuts (auto) 7.5 (2.0-7.7) X10^3/uL Absolute Lymphs (auto) 1.15 (0.83-4.51) X10^3/uL Nucleated RBC % 0 (0-5) % Vag Amniotic Fld Detect Negative (Negative) Multi Select Codes - Urinary/Genital Urinary/Genital CPT Codes: 61698-10 non-stress test Interp
== END 2019-02-22 14:10 | disposition home or self-care (01) ==
LOC: WPOUT 11:53 → WP 11:54
PROVIDERS: Family Provider Internal Medicine; PCP Internal Medicine; Referring Provider Obstetrics & Gynecology; Visit Provider Obstetrics & Gynecology
DX: O47.9 False labor, unspecified (principal); Z3A.00 Weeks of gestation of pregnancy not specified
CPT/HCPCS: 36415; 59025; 59050; 84112; 85025; 99218; G0378

== ENCOUNTER 2019-02-26 03:45 | Inpatient (IN) | payer MEDICAID, SELFPAY ==
[2019-02-25 09:05] VITALS: BMI 25.7
[2019-02-26 02:10] VITALS: BMI 26.2
[2019-02-26] MEDS: Acetaminophen 500 MG Tablet 1000 MG PO ×2 (03:29→16:41)
[2019-02-26] MEDS: Lactated Ringers 1,000 ML 999 ML IV (03:54)
[2019-02-26 04:16] LABS: Absolute Lymphocyte Count 1.59 X10^3/uL (0.83-4.51); Basophil# 0.03 X10^3/uL; Basophil% 0.2 % (0-1); Eosinophil# 0.01 X10^3/uL; Eosinophils% 0.1 % (0-5); Hemoglobin 10.2 g/dL (12.0-15.0); Lymphocyte # 1.59 X10^3/ul (4.0); Lymphocyte % 10.7 % (19-41); Mean Corp Hgb Conc 31.9 g/dL (32-36); Mean Corpuscular Hgb 25.1 pg (27.0-32.0); Mean Corpuscular Volume 78.8 fL (81-99); Mean Platelet Vol. 11.1 fl (6.2-12.0); Monocyte% 7.4 % (0-10); NRBC Flagged by Analyzer 0 % (0-5); Neutrophil # 12.04 X10^3/uL (2.7-7.7); Neutrophil % 80.7 % (47-70); Platelet Count 200 K/mm3 (150-450); RBC Distribution Width CV 12.8 % (11.6-14.6); RBC Distribution Width SD 36.2 fl (35.1-43.9); Red Blood Count 4.06 M/mm3 (4.2-5.4); White Blood Count 14.9 K/mm3 (4.4-11.0)
[2019-02-26] MEDS: Oxytocin 30 units/NS 500 ml 30 UNITS/500 ML IV.SOLN 334 UNITS IV (04:56)
[2019-02-26] MEDS: Morphine 4 MG/ML Syringe IV (05:03)
--- NOTE | 2019-02-26 05:24 | PCM.HP.OB ---
- Problem List (1) Precipitous delivery Status: Acute (2) Positive GBS test Status: Acute Comment: Penicillin at delivery (3) Anemia affecting Status: Acute Qualifiers: Comment: Start iron (4) General counselling and advice on contraception Status: Acute Comment: Title 19 form signed. (5) Status: Acute Qualifiers: Comment: normal anatomy (6) Nausea/vomiting in Status: Acute (7) Supervision of other normal Status: Acute Comment: PRR BLAINE 03/16/19 girl Stefanie Chaudhary (Dolly adopted) FOB: Abundio (8) Depression with anxiety Status: Chronic Comment: increase zoloft to 100mg 01/27 History Date of Admission: 12/10/16 Final BLAINE: 03/16/19 Gestational age: 37 Weeks and 3 Days History of this : This is a 23 year-old, at 37w3d weeks gestational age presents IAL 10 cm dilated dleivered precipitously. Medical History: Medical History (Last Reviewed 02/25/19 @ 09:03 by Elodia Chavez) Depression with anxiety (Chronic) F41.8 increase zoloft to 100mg 01/27 Asthma J45.909 Depression F32.9 Surgical History: Surgical History (Last Reviewed 02/25/19 @ 09:03 by Elodia Chavez) History of wisdom tooth extraction, class II edentulism K08.492 Allergies No Known Allergies Allergy (Verified 02/25/19 09:03) Home Medications: Home Medications Vit No.130/Iron/Folic [ Tablet] 1 tab PO DAILY 08/02/18 Acetaminophen [Tylenol] 500 mg PO PRN PRN 02/14/19 DiphenhydrAMINE [Benadryl] 25 mg PO QHS PRN PRN 02/14/19 Sertraline HCl 100 mg PO DAILY 02/14/19 Smoking Status: Never smoker History Past Pregnancies: Past Pregnancies Delivery Date Name GA/ Weeks Outcome Route Wt Infant Sex Labor Length Anesthesia Delivery Location Provider FOB Review of Systems Constitutional: Denies: Fever, Malaise Eyes: Denies: Blurred vision, Vision Change HEENT: Denies: Head Aches, Visual Changes Cardiovascular: Denies: Chest Pain, Palpitations Respiratory: Denies: Cough, Shortness of Breath, Wheezing Gastrointestinal: Denies: Abdominal Pain, Diarrhea, Nausea, Vomiting Genitourinary: Denies: Dysuria, Hematuria Musculoskeletal: Denies: Joint Pain, Muscle pain Skin: Denies: Lesions, Rash Neurological: Denies: Blurred vision, Focal weakness, Headaches Psychiatric: Denies: Anxiety, Depression Endocrine: Denies: Heat/ Cold Intolerance Hematologic/ Lymphatic: Denies: Easy Bruising, Easy Bleeding Physical Exam General: Alert, Cooperative, No apparent distress HEENT: Atraumatic, Normocephalic. Negative for: Thyromegaly, Lymphadenopathy Cardiovascular: Regular rate Lungs: Normal air movement Abdomen: Soft, Non Tender, Gravid Neurological: Deep Tendon Reflexes 2+/4 and Symmetrical, Neuro grossly intact. Negative for: Clonus HE[employer] HE[employer] PRACTITIONER: Normal external genitalia. Negative for: Vulvar lesions Estimated gestational size: Appropriate for gestational size Presentation: Cephalic Assessment/Plan All Active Problems (Last Reviewed 02/25/19 @ 09:03 by Elodia Chavez) Threatened labor (Acute) Precipitous delivery (Acute) Positive GBS test (Acute) Anemia affecting (Acute) General counselling and advice on contraception (Acute) (Acute) Nausea/vomiting in (Acute) Supervision of other normal (Acute) This is a 23 year-old, , at 37 weeks gestational age presents IAL gbs post delivered precipitously.
[2019-02-26 06:00] VITALS: BP 116/71; PULSE 62; RESP 16; TEMP 36.7
[2019-02-26] MEDS: Lactated Ringers 1,000 ML 125 ML IV (08:00)
[2019-02-26 08:11] VITALS: BP 121/83; PULSE 70; RESP 16; TEMP 36.9; O2SAT 97
--- NOTE | 2019-02-26 10:19 | NURSING ---
pt aware tubal ligation surgery has been postponed for 6 weeks, we discussed other options and she requested an depo shot. office updated and the med has been ordered.
[2019-02-26] MEDS: Naproxen 250 MG Tablet 500 MG PO ×2 (10:30→19:51)
[2019-02-26] MEDS: Prenatal Vits Tablet 1 TABLET PO (10:31)
[2019-02-26] MEDS: Sertraline 100 MG Tablet PO (10:31)
[2019-02-26 12:00] VITALS: BP 113/75; PULSE 89; RESP 16; TEMP 36.7; O2SAT 97
[2019-02-26 16:43] VITALS: BP 111/70; PULSE 75; RESP 16; TEMP 36.9; O2SAT 96
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
[2019-02-26 19:50] VITALS: BP 116/75; PULSE 73; RESP 18; TEMP 36.7; O2SAT 100
[2019-02-26 23:25] VITALS: BP 107/74; PULSE 71; RESP 16; TEMP 37.2; O2SAT 97
[2019-02-27 04:55] VITALS: BP 104/67; PULSE 78; RESP 16; TEMP 37.1; O2SAT 97
[2019-02-27] MEDS: Acetaminophen 500 MG Tablet 1000 MG PO (06:49)
--- NOTE | 2019-02-27 07:03 | OP.PCM_ITS ---
Problem List (1) Precipitous delivery Status: Acute (2) Positive GBS test Status: Acute Comment: Penicillin at delivery (3) Anemia affecting Status: Acute Qualifiers: Comment: Start iron (4) General counselling and advice on contraception Status: Acute Comment: Title 19 form signed. (5) Status: Acute Qualifiers: Comment: normal anatomy (6) Nausea/vomiting in Status: Acute (7) Supervision of other normal Status: Acute Comment: PRR BLAINE 03/16/19 girl Stefanie Chaudhary (Dolly adopted) FOB: Abundio (8) Depression with anxiety Status: Chronic Comment: increase zoloft to 100mg 01/27 Vaginal Delivery Maternal Presentation: Active Labor precipitous delivery Amniotic Membrane Rupture Type: Spontaneous at home Amniotic Fluid Description: Clear Final BLAINE: 03/16/19 Gestational age: 37 Weeks and 5 Days Date of Procedure: 02/26/19 Pre-Operative Diagnosis: ial Post-Operative Diagnosis: same Surgery/ Procedure Performed: Spontaneous Vaginal Delivery Type of Anesthesia: None Description of Procedure: Patient began pushing and delivered the head in the ROP presentation. The head was delivered atraumatically. The anterior and posterior shoulders delivered without complication followed by the rest of the infant and the infant was placed on the maternal abdomen. Delayed cord clamping was employed for approximately 60 seconds. Cord was clamped and cut and gentle traction was applied to the cord and the placenta delivered spontaneously immediately following it was noted to be intact with three-vessel cord. The perineum and vagina were inspected and noted to have no laceration. EBL was 100 cc. Patient and infant tolerated delivery well. Presentation: ROP Placental Delivery Description: Spontaneous Placenta Disposition: [facility] Multi Select Codes - Urinary/Genital Urinary/Genital CPT Codes: 18301 Vaginal Delivery+ PP Care([facility])
--- NOTE | 2019-02-27 07:04 | PCM.PN.OB ---
Patient Problems: Active and Suspected Problems (Last Reviewed 02/25/19 @ 09:03 by Elodia Chavez) Precipitous delivery (Acute) - Physical Exam Vitals/I&O's: Vital Signs Temp Pulse Resp BP Pulse Ox 98.8 F 78 16 104/67 97 02/27/19 04:55 02/27/19 04:55 02/27/19 04:55 02/27/19 04:55 02/27/19 04:55 Oxygen Delivery Method Room Air Weight: 143 lb 9.6 oz Body Mass Index (BMI) 26.2 Intake and Output for Last 24 Hours 02/25/19 02/26/19 02/27/19 23:59 23:59 23:59 Intake Total 1800.00 / 1800.00 Balance 1800.00 / 1800.00 Current Medications Acetaminophen (Tylenol) 1,000 mg PO Q8H PRN PRN PRN Reason: Pain Score 1-3/10 Last Admin: 02/27/19 06:49 Dose: 1,000 mg Documented by: Bisacodyl (Dulcolax) 10 mg RECTAL UD PRN PRN Reason: If no BM Dibucaine (Dibucaine) 1 applic TOPICAL TID PRN PRN; Protocol PRN Reason: Discomfort Hydrocortisone (Hytone) 1 applic TOPICAL TID PRN PRN; Protocol PRN Reason: Discomfort Medroxyprogesterone Acetate (Depo-Provera) 150 mg IM .[id number] [facility] Methylergonovine Maleate (Methergine) 0.2 mg IM X1 PRN PRN Reason: Excess bleeding/uterine atony Naproxen (Naprosyn) 500 mg PO Q8H PRN PRN PRN Reason: Pain Score 1-3/10 Last Admin: 02/26/19 19:51 Dose: 500 mg Documented by: Ondansetron HCl (Zofran) 4 mg IV Q4H PRN PRN PRN Reason: Nausea Oxycodone HCl (Oxyir) 5 - 10 mg PO Q4H PRN PRN PRN Reason: Pain Score 4-10/10 Multivit/Folic Acid/Iron (Prenatabs Fa) 1 tablet PO DAILY [facility] Last Admin: 02/26/19 10:31 Dose: 1 tablet Documented by: Senna/Docusate Sodium (Senokot-S, Susan-Colace) 1 - 2 tablet PO DAILY PRN PRN PRN Reason: Constipation Sertraline HCl (Zoloft) 100 mg PO DAILY YOGESH Last Admin: 02/26/19 10:31 Dose: 100 mg Documented by: Simethicone (Mylicon) 80 mg PO PCHS PRN PRN Reason: Indigestion/Stomach pain Sodium Chloride () 5 - 15 ml IV UD PRN PRN Reason: SALINE FLUSH Medical Necessity - Tobacco Use Smoking Status: Never smoker Assessment/Plan All Active Problems (Last Reviewed 02/25/19 @ 09:03 by Elodia Chavez) Threatened labor (Acute) Precipitous delivery (Acute) Positive GBS test (Acute) Anemia affecting (Acute) General counselling and advice on contraception (Acute) (Acute) Nausea/vomiting in (Acute) Supervision of other normal (Acute)
[2019-02-27] MEDS: Sertraline 100 MG Tablet PO (08:19)
[2019-02-27] MEDS: Prenatal Vits Tablet 1 TABLET PO (08:19)
[2019-02-27 08:23] VITALS: BP 105/65; PULSE 64; RESP 16; TEMP 36.7; O2SAT 98
[2019-02-27 14:00] VITALS: BP 122/82; PULSE 64; RESP 16; TEMP 36.6
[2019-02-27] MEDS: Naproxen 250 MG Tablet 500 MG PO (14:21)
--- NOTE | 2019-02-27 18:33 | NURSING ---
1745:report received from Kiera BedoyaRN
[2019-02-27 20:02] VITALS: BP 113/81; PULSE 75; RESP 16; TEMP 36.6
[2019-02-28 02:00] VITALS: BP 110/71; PULSE 62; RESP 16; TEMP 36.8
[2019-02-28 08:00] VITALS: BP 110/66; PULSE 68; RESP 18; TEMP 36.7
--- NOTE | 2019-02-28 11:20 | PN.OBGYN_ITS ---
Patient Problems: Active and Suspected Problems (Last Reviewed 02/25/19 @ 09:03 by Elodia Chavez) Precipitous delivery (Acute) Subjective: doing well no complaints pain controlled no CP SOB N V ambulating well tolerating po lochia moderate, going well - Physical Exam Vitals/I&O's: Vital Signs Temp Pulse Resp BP Pulse Ox 98.0 F 68 18 110/66 98 02/28/19 08:00 02/28/19 08:00 02/28/19 08:00 02/28/19 08:00 02/27/19 08:23 Oxygen Delivery Method Room Air Weight: 143 lb 9.6 oz Body Mass Index (BMI) 26.2 Intake and Output for Last 24 Hours 02/26/19 02/27/19 02/28/19 23:59 23:59 23:59 Intake Total 1800.00 / 1800.00 Balance 1800.00 / 1800.00 General: Alert, Oriented x3 Current Medications Acetaminophen (Tylenol) 1,000 mg PO Q8H PRN PRN PRN Reason: Pain Score 1-3/10 Last Admin: 02/27/19 06:49 Dose: 1,000 mg Documented by: Bisacodyl (Dulcolax) 10 mg RECTAL UD PRN PRN Reason: If no BM Dibucaine (Dibucaine) 1 applic TOPICAL TID PRN PRN; Protocol PRN Reason: Discomfort Hydrocortisone (Hytone) 1 applic TOPICAL TID PRN PRN; Protocol PRN Reason: Discomfort Medroxyprogesterone Acetate (Depo-Provera) 150 mg IM .[id number] [facility] Methylergonovine Maleate (Methergine) 0.2 mg IM X1 PRN PRN Reason: Excess bleeding/uterine atony Naproxen (Naprosyn) 500 mg PO Q8H PRN PRN PRN Reason: Pain Score 1-3/10 Last Admin: 02/27/19 14:21 Dose: 500 mg Documented by: Ondansetron HCl (Zofran) 4 mg IV Q4H PRN PRN PRN Reason: Nausea Oxycodone HCl (Oxyir) 5 - 10 mg PO Q4H PRN PRN PRN Reason: Pain Score 4-10/10 Multivit/Folic Acid/Iron (Prenatabs Fa) 1 tablet PO DAILY [facility] Last Admin: 02/27/19 08:19 Dose: 1 tablet Documented by: Senna/Docusate Sodium (Senokot-S, Susan-Colace) 1 - 2 tablet PO DAILY PRN PRN PRN Reason: Constipation Sertraline HCl (Zoloft) 100 mg PO DAILY [facility] Last Admin: 02/27/19 08:19 Dose: 100 mg Documented by: Simethicone (Mylicon) 80 mg PO PCHS PRN PRN Reason: Indigestion/Stomach pain Sodium Chloride () 5 - 15 ml IV UD PRN PRN Reason: SALINE FLUSH Medical Necessity - Tobacco Use Smoking Status: Never smoker Assessment/Plan All Active Problems (Last Reviewed 02/25/19 @ 09:03 by Elodia Chavez) Threatened labor (Acute) Precipitous delivery (Acute) Positive GBS test (Acute) Anemia affecting (Acute) General counselling and advice on contraception (Acute) (Acute) Nausea/vomiting in (Acute) Supervision of other normal (Acute) s/p PPD # 1 1. routine post delivery care 2. breast feeding- support given 3. rh positive 4. rubella immune
[2019-02-28] MEDS: Sertraline 100 MG Tablet PO (11:26)
[2019-02-28] MEDS: Acetaminophen 500 MG Tablet 1000 MG PO (11:27)
[2019-02-28] MEDS: Prenatal Vits Tablet 1 TABLET PO (11:27)
--- NOTE | 2019-02-28 12:01 | DCINST_ITS ---
Discharge Diet: No Restrictions Discharge Activity: Return to Normal Activity, May not drive while taking narcotic pain medications., May Shower May resume sexual activity in: 4-6 weeks Call your doctor if your incision/area has: Continuous Slow Oozing, Sudden Increased Bleeding, Increased Pain/ Swelling, Increased Redness, Foul Smelling Discharge Additional Instructions: If you experience any of the following, contact your healthcare provider. * Bleeding that soaks a pad every hour for 2 hours * Fever 100.4 or higher * Unrelieved incision or abdominal pain * Swelling, redness, discharge or bleeding from your incision or episiotomy site * Your incision begins to separate * Problems urinating (including inability to urinate or burning while urinating). * Visual changes * Severe headache * Flu-like symptoms * Pain or redness in one of both of your breasts * Pain, warmth, tenderness or swelling in your legs, especially the calf area * Frequent nausea and vomiting * Symptoms of depression or anxiety If you experience any of the following, call 911 or go to the nearest Emergency Room. * Chest pain * Problems breathing * Seizure activity * Partial or complete paralysis of a body part, slurred speech, weakness or drooping of the face, or a sudden inability to walk or hold your balance Allergies/Adverse Reactions: Allergies No Known Allergies Allergy (Verified 02/26/19 06:28) Medications to take at Discharge Vit No.130/Iron/Folic [ Tablet] 1 tab PO DAILY 08/02/18 Acetaminophen [Tylenol] 500 mg PO PRN PRN 02/14/19 DiphenhydrAMINE [Benadryl] 25 mg PO QHS PRN PRN 02/14/19 Sertraline HCl 100 mg PO DAILY 02/14/19 Please Follow Up With: Zeynep Hammond MD - [phone] When: Call to make an appointment with your doctor in 6 weeks. If you had elevated Blood pressure or 4th degree laceration you will need to be seen in 2 weeks. Primary Care Physician: Marisa Sue MD [Primary Care Provider] - Test Results: Test results from this visit will be discussed in further detail at your follow- up appointment, if applicable.
== END 2019-02-28 12:20 | disposition home or self-care (01) | DRG 560 ==
PROVIDERS: Admitting Provider Obstetrics & Gynecology; Family Provider Internal Medicine; PCP Internal Medicine; Visit Provider Obstetrics & Gynecology
DX: O62.3 Precipitate labor (principal); O99.52 Diseases of the respiratory system complicating childbirth; O99.824 Streptococcus B carrier state complicating childbirth; J45.909 Unspecified asthma, uncomplicated; O99.02 Anemia complicating childbirth; F41.8 Other specified anxiety disorders; O99.344 Other mental disorders complicating childbirth; D64.9 Anemia, unspecified; Z37.0 Single live birth; Z3A.37 37 weeks gestation of pregnancy
CPT/HCPCS: 59025; 59050; 85025; 86850; 86900; 86901; 99218; J7120; G0378

== ENCOUNTER 2019-03-23 08:33 | Day surgery (SDC) | payer MEDICAID, SELFPAY ==
--- NOTE | 2019-03-21 01:59 | PCM.HP.STD ---
Problem List (1) General counselling and advice on contraception Status: Acute Comment: Title 19 form signed. History of Present Illness Date of Admission: 03/23/19 The patient is a 23 year old F presents for sterilization. she is recently . Past Medical History Past Medical History (Chronic Problems): Chronic Problems (Last Reviewed 02/25/19 @ 09:03 by Elodia Chavez) Depression with anxiety (Chronic) increase zoloft to 100mg 01/27 Medical History: Medical History (Last Reviewed 02/25/19 @ 09:03 by Elodia Chavez) Depression with anxiety (Chronic) F41.8 increase zoloft to 100mg 01/27 Asthma J45.909 Depression F32.9 Allergies No Known Allergies Allergy (Verified 02/26/19 06:28) Home Medications: Ambulatory Orders Medication Instructions Recorded Vit No.130/Iron/Folic 1 tab PO DAILY 08/02/18 [ Tablet] Acetaminophen [Tylenol] 500 mg PO PRN PRN 02/14/19 DiphenhydrAMINE [Benadryl] 25 mg PO QHS PRN PRN 02/14/19 Sertraline HCl 100 mg PO DAILY 02/14/19 Surgical History: Surgical History (Last Reviewed 02/25/19 @ 09:03 by Elodia Chavez) History of wisdom tooth extraction, class II edentulism K08.492 Smoking Status: Never smoker Review of Systems Constitutional: Denies: Fever, Malaise Eyes: Denies: Blurred vision, Vision Change HEENT: Denies: Head Aches, Visual Changes Cardiovascular: Denies: Chest Pain, Palpitations Respiratory: Denies: Cough, Shortness of Breath, Wheezing Gastrointestinal: Denies: Abdominal Pain, Diarrhea, Nausea, Vomiting Genitourinary: Denies: Dysuria, Hematuria Musculoskeletal: Denies: Joint Pain, Muscle pain Skin: Denies: Lesions, Rash Neurological: Denies: Blurred vision, Focal weakness, Headaches Psychiatric: Denies: Anxiety, Depression Endocrine: Denies: Heat/ Cold Intolerance Hematologic/ Lymphatic: Denies: Easy Bruising, Easy Bleeding VTE Information - Inpt Only VTE Present on Admission: No - Physical Exam Vitals/I&O's: Body Mass Index (BMI) 26.2 General: Alert, Oriented x3, Cooperative HEENT: Atraumatic, Normocephalic Neck: Supple Lungs: Clear to auscultation, Normal air movement Cardiovascular: Regular rate, No murmurs Abdomen: Bowel Sounds Present, Soft, Non Tender Extremities: No edema Skin: No rashes, No breakdown Musculoskeletal: No Tenderness to Palpation of Joints or Extremities Neurological: Neuro grossly intact Psych/Mental Status: Normal Affect, Appropriate Assessment/Plan All Active Problems (Last Reviewed 02/25/19 @ 09:03 by Elodia Chavez) Threatened labor (Acute) Precipitous delivery (Acute) Positive GBS test (Acute) Anemia affecting (Acute) General counselling and advice on contraception (Acute) (Acute) Nausea/vomiting in (Acute) Supervision of other normal (Acute) 23 yo desired sterilization After discussing the patient's diagnosis and treatment plan options, patient wishes to proceed with surgical management. I have discussed with the patient the risks, benefits, and alternatives of the procedure which include but are not limited to risks of anesthesia, bleeding, infection, possible damage to bowel, bladder, or surrounding vasculature which could lead to additional surgery to evaluate any complications. Patient agrees to procedure and wishes to proceed. ACOG/uptodate references given for additional information regarding procedure.
[2019-03-23 08:57] VITALS: BP 122/82; PULSE 69; RESP 14; TEMP 36.2; O2SAT 100; BMI 24.3
[2019-03-23 09:04] LABS: Internal QC Validated? YES +Cl - CLEAR BKGD; Pregnancy, Urine Negative Negative
[2019-03-23] MEDS: Lactated Ringers 1,000 ML 125 ML IV (09:13)
--- NOTE | 2019-03-23 10:15 | FALS_PTH ---
PATIENT: FABIAAN JERRY LOC: [facility] [place][id number] AGE/SX: 23/ ROOM: RE03/23/[address]: Dr. Zeynep Hammond MD : [id number] BED: DIS: 03/23/2019 SPEC #: [id number] RECD: 03/23/19 11:29 STATUS: DREW TEE #: [id number] VERONICA: 03/23/19 10:[address]: Zeynep Hammond DEPT: SURGICAL PATHOLOGY RECD BY: Sunday Dawson ENTERED: 03/23/19 13:12 SP TYPE: FALL TUBES OTHR DR: MD Marisa Hernandez MD Tissues: Fallopian tube Procedures: Surgery Specimen Level II HEADER OPERATION: Laparoscopic salpingectomy PRE-OP DIAGNOSIS: Desired sterilization TISSUE SUBMITTED: Bilateral fallopian tubes MICROSCOPIC DIAGNOSIS Right and left fallopian tubes, bilateral salpingectomies: Complete cross-sections of bilateral fallopian tubes with no pathologic change. AM:emerson 03/24/19 MICROSCOPIC DESCRIPTION Slides are reviewed. GROSS DESCRIPTION Received is one container labeled with the patient's name and designated bilateral fallopian tubes. The specimen consists of bilateral fallopian tubes including fimbrial ends measuring 5.5 cm in length and 0.5 cm in diameter and 6 cm in length and 0.5 cm in diameter. Sections do not reveal any mass lesion. The fallopian tubes are not identified as right or left. Sections reveal unremarkable cut surfaces. Supervisor Fabrication sections are submitted in two cassettes with each cassette containing one fallopian tube. / SJ:emerson 03/23/19 TC:4 CPT: 76104 x2
[2019-03-23] MEDS: Bupivacaine 0.25% 30 ML Vial (10:20)
--- NOTE | 2019-03-23 10:41 | PCM.OPRPT ---
Problem List (1) General counselling and advice on contraception Status: Acute Comment: Title 19 form signed. 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 Bladder was drained of clear urine and SCDs were on preoperatively. Uterus was sounded and a uterine manipulator was placed after dilating. Attention was then paid to the abdominal portion of the procedure and the umbilicus was elevated with towel clamps and injected with Marcaine and after a 5 mm incision was made and the Veress needle was entered into the abdomen confirmed to be intra-abdominal with a low opening pressure of less than 5 mmHg. Abdomen was insufflated with CO2 gas and a 5 mm optical trocar was placed under direct visualization. A left lower quadrant 5 mm port and a 5 mm port suprapubically were placed under direct visualization. Uterus was well visualized and bilateral fallopian tubes identified and bilateral tubes were elevated and transecting across the mesosalpinx and the attachment to the uterine corpus bilaterally the tubes were removed without complication. Excellent hemostasis was noted. Fallopian tubes were removed through the lower port sites without complication. Liver and upper abdomen were visualized notably within normal limits and no other gross abnormalities were seen in the abdomen. All instruments removed from the abdomen after gas was desufflated. Port sites were closed with 3-0 Monocryl Steri's and op sites were applied. All instruments removed from the vagina and patient was awoken and taken recovery in stable condition. Grafts/Implants Used: none - Complications none - Admit VTE Documentation VTE Present on Admission: No VTE Mechan Device Prophylaxis: SCD's
--- NOTE | 2019-03-23 10:45 | DCINST_ITS ---
Discharge Diet: No Restrictions - Increase fluid intake for the next 48 hours. Discharge Activity: Return to Normal Activity, May Drive - when you are no longer taking narcotic pain medications., May Shower, May Take a Tub Bath - in 7 days Additional Activity Instructions:: Ambulate often the next week after surgery. Nothing in the vagina for 5 days. Call your doctor if your incision/area has: Continuous Slow Oozing, Sudden Increased Bleeding, Increased Pain/ Swelling, Increased Redness, Foul Smelling Discharge Call your doctor if you observe: Fever of 101 or Higher Allergies/Adverse Reactions: Allergies No Known Allergies Allergy (Verified 03/22/19 14:06) Medications to take at Discharge Sertraline HCl 100 mg PO DAILY 02/14/19 Primary Care Physician: Marisa Sue MD [Primary Care Provider] - Test Results: Test results from this visit will be discussed in further detail at your follow- up appointment, if applicable. Please Follow Up With: Zeynep Hammond MD - [phone]
[2019-03-23 11:00] VITALS: BP 122/82; BP 125/106; PULSE 78; RESP 16; TEMP 37.3; O2SAT 99
[2019-03-23 11:15] VITALS: BP 110/74; BP 122/82; PULSE 64; RESP 16; O2SAT 99
[2019-03-23 11:30] VITALS: BP 115/77; BP 122/82; PULSE 62; RESP 16; TEMP 37.4; O2SAT 99
[2019-03-23 12:30] VITALS: BP 121/75; BP 122/82; PULSE 68; RESP 16; TEMP 36.2; O2SAT 97
== END 2019-03-23 12:45 | disposition home or self-care (01) ==
LOC: SDC 08:34 → AC 08:35
PROVIDERS: Anesthesiology; Family Provider Internal Medicine; PCP Internal Medicine; Referring Provider Obstetrics & Gynecology; Visit Provider Obstetrics & Gynecology
PROC: (CPT 58661; principal; 2019-03-23 10:00)
DX: Z30.2 Encounter for sterilization (principal); F41.8 Other specified anxiety disorders; J45.909 Unspecified asthma, uncomplicated; Z86.2 Personal history of diseases of the blood and blood-forming organs and certain disorders involving the immune mechanism; Z79.899 Other long term (current) drug therapy; Z87.891 Personal history of nicotine dependence
CPT/HCPCS: 58661; 81025; 88302; J7120; J2405

== ENCOUNTER → 2019-09-14 11:45 | Outpatient (REF) | payer MEDICAID, SELFPAY ==
[2019-04-22 09:49] VITALS: BMI 24.3
== END ==
LOC: LABSPEC 11:45
PROVIDERS: PCP Internal Medicine; Referring Provider Family Medicine; Visit Provider Family Medicine
DX: Z00.00 Encounter for general adult medical examination without abnormal findings (principal)
CPT/HCPCS: 87635; C9803; G2023; U0003

== ENCOUNTER → 2019-10-07 13:26 | Outpatient (CLI) | payer MEDICAID, SELFPAY ==
[2019-10-07 11:50] VITALS: BMI 24.6
[2019-10-07 18:31] LABS: Chlamydia Trachomatis by PCR Negative (Negative); Neisserai gonorrhoeae by PCR Negative (Negative); Probe Check PASS; Sample Adequacy Control PASS; Specimen Processing Control PASS
== END ==
PROVIDERS: PCP Internal Medicine; Referring Provider Nurse Practitioner Women's Health; Visit Provider Nurse Practitioner Women's Health
DX: Z11.3 Encounter for screening for infections with a predominantly sexual mode of transmission (principal)
CPT/HCPCS: 87491; 87591

== ENCOUNTER → 2019-12-07 | Outpatient (CLI) | payer MEDICAID, SELFPAY ==
[2019-12-07 10:55] VITALS: BMI 24.6
[2019-12-10 03:07] LABS: Chlamydia By Nucleic Acid AMP Negative (Negative)
[2019-12-10 09:33] LABS: Gonococcus By Nucleic Acid AMP Negative (Negative)
== END | disposition home or self-care (01) ==
LOC: LABSPEC 15:26
PROVIDERS: PCP Internal Medicine; Referring Provider Nurse Practitioner Women's Health; Visit Provider Nurse Practitioner Women's Health
DX: Z11.3 Encounter for screening for infections with a predominantly sexual mode of transmission (principal)
CPT/HCPCS: 87491; 87591

== ENCOUNTER → 2020-01-18 18:33 | Outpatient (CLI) | payer MEDICAID, SELFPAY ==
[2020-01-17 09:53] VITALS: BMI 24.1
--- NOTE | 2020-01-18 18:35 | US_ITS ---
STUDY: ULTRASOUND OF THE FEMALE PELVIS - COMPLETE REASON FOR EXAM: Female, 24 years old. MENORRHAGIA LMP: 01/01/2020 TECHNIQUE: Transvaginal TECHNICAL QUALITY: Adequate. COMPARISON: 09/26/2017. FINDINGS: The uterus is anteverted and is in a midline position. The uterus measures 9.1 x 6.6 x 4.1 cm. Normal uterine cervix. The endometrium measures 2 mm in thickness, and is hyperechoic. There is no demonstrated endometrial mass. There is no demonstrated myometrial mass. I.U.D. - The patient does have an I.U.D. The right ovary is visualized. The right ovary measures 3.8 x 2.7 x 2.2 cm. There is no right ovarian cyst or ovarian mass. There is no visualized right adnexal mass or complex lesion. There is normal arterial and normal venous vascularity. The left ovary is visualized. The left ovary measures 2.8 x 2.2 x 1.6 cm. There is no left ovarian cyst or ovarian mass. There is no visualized left adnexal mass or complex lesion. There is normal arterial and normal venous vascularity. There is no fluid in the cul-de-sac. The pre void volume of the bladder was 230 ml. US/Pelvic (Non ) IMPRESSION: Normal female pelvis. Normal appearance of IUD. Electronically Signed: Jairon Solis MD at 19:45 EST , Service support ,
--- NOTE | 2020-01-18 18:35 | US_ITS ---
STUDY: ULTRASOUND OF THE FEMALE PELVIS - COMPLETE REASON FOR EXAM: Female, 24 years old. MENORRHAGIA LMP: 01/01/2020 TECHNIQUE: Transvaginal TECHNICAL QUALITY: Adequate. COMPARISON: 09/26/2017. FINDINGS: The uterus is anteverted and is in a midline position. The uterus measures 9.1 x 6.6 x 4.1 cm. Normal uterine cervix. The endometrium measures 2 mm in thickness, and is hyperechoic. There is no demonstrated endometrial mass. There is no demonstrated myometrial mass. I.U.D. - The patient does have an I.U.D. The right ovary is visualized. The right ovary measures 3.8 x 2.7 x 2.2 cm. There is no right ovarian cyst or ovarian mass. There is no visualized right adnexal mass or complex lesion. There is normal arterial and normal venous vascularity. The left ovary is visualized. The left ovary measures 2.8 x 2.2 x 1.6 cm. There is no left ovarian cyst or ovarian mass. There is no visualized left adnexal mass or complex lesion. There is normal arterial and normal venous vascularity. There is no fluid in the cul-de-sac. The pre void volume of the bladder was 230 ml. US/Transvaginal Non- IMPRESSION: Normal female pelvis. Normal appearance of IUD. Electronically Signed: Jairon Solis MD at 19:45 EST , Service support ,
== END ==
PROVIDERS: PCP Internal Medicine; Referring Provider Nurse Practitioner Women's Health; Visit Provider Nurse Practitioner Women's Health
DX: N92.0 Excessive and frequent menstruation with regular cycle (principal)
CPT/HCPCS: 76830; 76856

== ENCOUNTER → 2020-07-24 | Outpatient (CLI) | payer MEDICAID, SELFPAY ==
[2020-07-24 15:08] VITALS: BMI 24.3
[2020-07-27 15:47] LABS: Gonococcus By Nucleic Acid AMP Negative (Negative)
[2020-07-27 15:49] LABS: Chlamydia By Nucleic Acid AMP Positive (Negative)
[2020-07-28 19:43] LABS: HPV Reflexed? NOT INDICATED
== END | disposition home or self-care (01) ==
LOC: LABSPEC 16:26
PROVIDERS: PCP Internal Medicine; Referring Provider Nurse Practitioner Women's Health; Visit Provider Nurse Practitioner Women's Health
DX: Z12.4 Encounter for screening for malignant neoplasm of cervix (principal); Z11.3 Encounter for screening for infections with a predominantly sexual mode of transmission
CPT/HCPCS: 87491; 87591; 88175; G0145

== ENCOUNTER → 2020-08-09 | Outpatient (CLI) | payer MEDICAID, SELFPAY ==
[2020-08-09 16:08] VITALS: BMI 24.3
[2020-08-09 19:16] LABS: Chlamydia Trachomatis by PCR Negative (Negative); Neisserai gonorrhoeae by PCR Negative (Negative); Probe Check PASS; Sample Adequacy Control PASS; Specimen Processing Control PASS
== END | disposition home or self-care (01) ==
LOC: LABSPEC 16:54
PROVIDERS: PCP Internal Medicine; Referring Provider Obstetrics & Gynecology; Visit Provider Obstetrics & Gynecology
DX: Z11.3 Encounter for screening for infections with a predominantly sexual mode of transmission (principal)
CPT/HCPCS: 87491; 87591

== ENCOUNTER 2020-10-21 09:42 | Emergency (ER) | payer MEDICAID, SELFPAY ==
[2020-08-09 16:08] VITALS: BMI 24.3
[2020-10-21 09:43] VITALS: BP 106/65; PULSE 73; RESP 18; TEMP 36.4; O2SAT 98; BMI 27.6
--- NOTE | 2020-10-21 10:28 | ED.VIS.GI ---
HPI HPI - GI History of Present Illness Chief Complaint: Abd Pain Informant: patient Abdominal Pain/Flank Pain Onset: Yesterday Context: Gradual Onset Timing: Continuous Current Severity: Mild Maximum Severity: Mild Nausea/Vomiting/Emesis GI Symptom: Positive for Nausea; Negative for Vomiting Onset: Today Severity: Mild Diarrhea/Melena/Hematochezia GI Symptom: Negative for Diarrhea, Melena and Hematochezia Associated Symptoms Associated Symptoms: Negative for Dysuria, Frequency, Hematuria and Urgency LMP: 1 week ago. Narrative Narrative: 25-year-old female history of prior tubal ligation. History of prior ovarian cyst. States yesterday morning she developed suprapubic lower abdominal pain. Cramping in nature. Initially thought she may have gas or be constipated but she said she is had bowel movements and does not believe that is the issue. Her symptoms have not improved. She denies any dysuria. She denies any fever. Her last menstrual period was about a week ago. She denies any vaginal bleeding or discharge. Prior similar symptoms: No Recent Illness/Hospitalization: No PFSH PFSH Medical History (Updated 10/21/20 @ 11:[address] Joaquín Harrison MD) Asthma Depression Depression with anxiety Home Medications levonorgestrel 20 mcg/24 hours (6 yrs) 52 mg intrauterine device 1 insert INTRAUTERINE ONCE #1 ea 10/07/19 [Clinic Last Taken Unknown] citalopram 20 mg tablet 20 mg PO DAILY #90 tab 09/25/20 [Rx Last Taken Unknown] Allergy/AdvReac Type Severity Reaction Status Date / Time No Known Allergies Allergy Verified 10/21/20 09:45 Family History Mother Cancer ovarian Grandmother Breast cancer CVA (cerebral vascular accident) Heart disease Father Hypertension Grandmother Hypertension Surgical History History of wisdom tooth extraction, class II edentulism Hx of tubal ligation Social History Smoking Status: Current every day smoker tobacco type: cigarettes Electronic Cigarette Use: with nicotine alcohol intake: never details: social substance use type: does not use caffeine: No what type of physical activity do you participate in: walking frequency: 1-2 times per week seatbelt use: always do you feel safe at home: Yes additional social history: [id number] ROS ROS ED Review of Systems ROS Unobtainable: Denies due to encephalopathy Constitutional Constitutional ED: Denies chills or fever(s) ENT ENT ED: Denies ear pain or sore throat Cardiovascular Cardiovascular: Denies chest pain Respiratory/Chest Respiratory/Chest: Denies cough or dyspnea Gastrointestinal Gastrointestinal: Reports abdominal pain and nausea; Denies constipation, diarrhea, melena or vomiting Genitourinary Genitourinary ED: Denies dysuria or hematuria Musculoskeletal Musculoskeletal: Denies myalgias Integumentary Denies rash Neurologic Neurologic: Denies headache(s) Psychiatric Psychiatric: Denies depression Endocrine Endocrinology: Denies polyuria Hematologic/Lymphatic Hematologic/Lymphatic: Denies easy bruising Allergic/Immunologic Allergic/Immunologic ED: Denies urticaria EXAM Physical Exam Narrative Exam Narrative: Young healthy female no acute distress. Vital signs stable afebrile. HEENT exam unremarkable. Moist with membranes. Lungs clear to auscultation. Heart regular rhythm no murmur. Abdomen soft. Suprapubic tenderness only. Nondistended. No peritoneal signs. No hernias or masses. Both the right upper and right lower quadrants are unremarkable. No signs of obstruction. Patient is moving all 4 extremities. No edema. Back nontender. Neurologically she is awake and alert with no focal motor deficits. Const Vital Signs: 10/21/20 09:43 Temperature 97.6 F L Temperature Source Temporal Pulse Rate 73 Respiratory Rate 18 Blood Pressure 106/65 Blood Pressure Mean 78 Pulse Ox 98 Oxygen Delivery Method Room Air HEENT Reports moist mucous membranes normocephalic and atraumatic; Negative for trauma or tenderness Eyes PERRL and EOMs intact bilaterally Neck no lymphadenopathy, supple and no JVD General: Negative for tenderness Resp normal respiratory effort and clear to auscultation bilaterally Auscultation: Negative for rales, rhonchi or wheezes Cardio regular rate, regular rhythm, S1 normal heart sound, S2 normal heart sound and no murmurs GI non-distended and no masses; Negative for non-tender GI Narrative: Suprapubic lower abdominal tenderness only. Auscultation: normoactive bowel sounds Palpation: soft and tender; Negative for guarding, rigid or rebound tenderness present Back/Spine no CVA tenderness General Back: Negative for CVA tenderness Extremity full ROM General Extremety ED: Negative for edema or tenderness General Extremity: Negative for edema Neuro CN's II-XII intact bilaterally and moves all extremities Sensorium / Orientation: alert, oriented to person, oriented to place and oriented to time; Negative for orientation impaired, confused, lethargic or stuporous Motor Exam: strength 5/5 throughout Psych mental status grossly normal Skin Lesions: no lesions Rashes: no rashes MDM MDM MDM Narrative Medical decision making narrative: Young female 1 day history of suprapubic abdominal pain. She had a prior tubal ligation. Clinically this does not appear to be appendicitis at this time. She is having no urinary symptoms. Is unlikely she is with the prior tubal ligation. Screening labs and urinalysis will be obtained. She is being given morphine and Zofran for nausea and pain. Repeat exam patient doing well at 11:05 AM. Abdomen is completely benign. Again no right lower quadrant pain whatsoever. Currently she is pain-free symptom-free. She will be discharged home. Lab Data Attestation: I reviewed the patient's lab results. Lab results narrative: CBC shows a normal white count of 5. Hemoglobin of 12. Serum test negative. Chemistries normal. Urinalysis normal. Labs: Laboratory Results - last 24 hr 10/21/20 10/21/20 10/21/20 09:35 10:00 10:00 WBC 5.3 RBC 4.60 Hgb 12.3 Hct 39.4 MCV 85.7 MCH 26.7 L MCHC 31.2 L RDW Std Deviation 40.2 RDW Coeff of Debbie 13.0 Plt Count 210 MPV 11.0 Immature Gran % (Auto) 0.200 Neut % (Auto) 62.4 Lymph % (Auto) 22.1 Haines % (Auto) 13.4 H Eos % (Auto) 1.3 Baso % (Auto) 0.6 Absolute Neuts (auto) 3.3 Absolute Lymphs (auto) 1.17 Nucleated RBC % 0 Sodium 140 Potassium 3.7 Chloride 107 Carbon Dioxide 29.0 Anion Gap 4 L BUN 11 Creatinine 0.62 Estim Creat Clear Calc 104.67 Est GFR (MDRD) Af Amer 151 Est GFR (MDRD) Non-Af 124 BUN/Creatinine Ratio 17.7 Glucose 87 Calcium 8.4 L Serum , Qual Urine Color Yellow Urine Clarity Clear Urine pH 7.0 Ur Specific [place]vell 1.010 Urine Protein Negative Urine Glucose (UA) Normal Urine Ketones Negative Urine Occult Blood Negative Urine Nitrite Negative Urine Bilirubin Negative Urine Urobilinogen Normal Ur Leukocyte Esterase Negative Urine RBC 0 SEEN Urine WBC 0 SEEN Ur Squamous Epith Cells 0-5 SEEN Urine Bacteria 0 SEEN Urine Mucus 0 SEEN 10/21/20 10:00 WBC RBC Hgb Hct MCV MCH MCHC RDW Std Deviation RDW Coeff of Debbie Plt Count MPV Immature Gran % (Auto) Neut % (Auto) Lymph % (Auto) Haines % (Auto) Eos % (Auto) Baso % (Auto) Absolute Neuts (auto) Absolute Lymphs (auto) Nucleated RBC % Sodium Potassium Chloride Carbon Dioxide Anion Gap BUN Creatinine Estim Creat Clear Calc Est GFR (MDRD) Af Amer Est GFR (MDRD) Non-Af BUN/Creatinine Ratio Glucose Calcium Serum , Qual NEGATIVE Urine Color Urine Clarity Urine pH Ur Specific [place]vell Urine Protein Urine Glucose (UA) Urine Ketones Urine Occult Blood Urine Nitrite Urine Bilirubin Urine Urobilinogen Ur Leukocyte Esterase Urine RBC Urine WBC Ur Squamous Epith Cells Urine Bacteria Urine Mucus Discharge Plan Triage Chief Complaint: Abd Pain ED Provider: Joaquín Harrison Dx/Rx/DC Orders Clinical Impression: Abdominal pain Instructions: ED Abdominal Pain Unkn Cause Fem Prescriptions: No Action levonorgestrel 20 mcg/24 hours (5 yrs) 52 mg intrauterine device 1 insert intrauterine ONCE Qty: 1 RF: 0 citalopram [Celexa] 20 mg tablet 20 mg PO DAILY Qty: 90 RF: 4 Primary Care Provider: Marisa Sue Referrals: Marisa Sue MD [Primary Care Provider] - 1 Week if not improving Activity Restrictions/Additional Instructions: Follow-up with your doctor as needed. Return if your pain changes and moves to the right lower quadrant, you develop a fever or you are feeling a lot worse. Tylenol and Motrin for pain. This could also be an ovarian cyst if not improving you could follow-up with your TECHNICAL CUSTOMER SUPPORT SPECIALIST. Disposition Disposition: Home, Self Care
[2020-10-21] MEDS: morphine 8 MG/ML Syringe 6 MG IV (10:34)
[2020-10-21] MEDS: Ondansetron 4 MG/2 ML Vial IV (10:34)
[2020-10-21 10:35] LABS: Absolute Lymphocyte Count 1.17 X10^3/uL (0.83-4.51); Absolute Neutrophil Count 3.3 X10^3/uL (2.0-7.7); Basophil# 0.03 X10^3/uL; Basophil% 0.6 % (0-1); Eosinophil# 0.07 X10^3/uL; Eosinophils% 1.3 % (0-5); Hematocrit 39.4 % (37-47); Hemoglobin 12.3 g/dL (12.0-15.0); Lymphocyte # 1.17 X10^3/ul (0.83-4.51); Lymphocyte % 22.1 % (19-41); Mean Corp Hgb Conc 31.2 g/dL (32-36); Mean Corpuscular Hgb 26.7 pg (27.0-32.0); Mean Corpuscular Volume 85.7 fL (81-99); Monocyte# 0.71 X10^3/uL; Monocyte% 13.4 % (0-10); NRBC Flagged by Analyzer 0 % (0-5); Neutrophil # 3.31 X10^3/uL (2.7-7.7); Neutrophil % 62.4 % (47-70); Platelet Count 210 K/mm3 (150-450); RBC Distribution Width SD 40.2 fl (35.1-43.9); White Blood Count 5.3 K/mm3 (4.4-11.0)
[2020-10-21 10:38] LABS: Internal QC Validated? YES +Cl - CLEAR BKGD; Pregnancy, Serum, hCG Quali. NEGATIVE Negative
[2020-10-21 10:42] LABS: Anion Gap 4 (5-15); BUN 11 mg/dL (7-18); BUN/Creat Ratio 17.7 RATIO (10-20); Calcium,Total 8.4 mg/dL (8.5-10.1); Chloride 107 mmol/L (98-107); Creatinine, Serum 0.62 mg/dL (0.55-1.02); EST Glomerular Filtration Rate 124 mL/min (>60); Est Glom Filt Rate - Afr Amer 151 mL/min (>60); Estimated Creatinine Clearance 104.67 ml/min; Glucose 87 mg/dL (74-106); Potassium 3.7 mmol/L (3.5-5.1); Sodium Level 140 mmol/L (136-145)
[2020-10-21 10:43] LABS: Bacteria 0 SEEN /hpf (None Seen); Mucous, Urine 0 SEEN /hpf (<or=2+); Red Blood Cells-Urine 0 SEEN /hpf (0-5); White Blood Cells 0 SEEN /hpf (0-5)
[2020-10-21 10:45] LABS: Color, Urine Yellow (Yellow); Glucose, Dipstick Normal (Normal); Ketone-Dipstick Negative (Negative); Leukocyte Esterase-Dipstick Negative /ul (Negative); Nitrite-Dipstick Negative (Negative); Occult Blood-Urine Negative /ul (Negative); Protein-Dipstick Negative (Negative); Urine Bilirubin Dipstick Negative (Negative); Urine Clarity Clear (Clear); Urine Urobilinogen Normal (Normal)
[2020-10-21 11:01] LABS: Squamous Epithelial Cells - UA 0-5 SEEN /hpf (5-10)
== END 2020-10-21 11:20 | disposition home or self-care (01) ==
PROVIDERS: Emergency Provider Emergency Medicine; PCP Internal Medicine
DX: R10.30 Lower abdominal pain, unspecified (principal); R11.0 Nausea; F41.8 Other specified anxiety disorders; J45.909 Unspecified asthma, uncomplicated; Z98.51 Tubal ligation status; Z79.899 Other long term (current) drug therapy; F17.210 Nicotine dependence, cigarettes, uncomplicated
CPT/HCPCS: 80048; 81001; 84703; 85025; 96374; 96375; 99283; J7030; A4216; J2405

== ENCOUNTER → 2020-12-26 14:53 | Outpatient (CLI) | payer MEDICAID, SELFPAY ==
[2020-12-26 16:23] LABS: Absolute Neutrophil Count 4.7 X10^3/uL (2.0-7.7); Basophil# 0.05 X10^3/uL; Basophil% 0.7 % (0-1); Eosinophil# 0.07 X10^3/uL; Eosinophils% 0.9 % (0-5); Hematocrit 38.1 % (37-47); Hemoglobin 12.3 g/dL (12.0-15.0); Lymphocyte % 24.1 % (19-41); Mean Corp Hgb Conc 32.3 g/dL (32-36); Mean Corpuscular Hgb 27.1 pg (27.0-32.0); Mean Corpuscular Volume 83.9 fL (81-99); Mean Platelet Vol. 11.6 fl (6.2-12.0); Monocyte# 0.81 X10^3/uL; Monocyte% 10.9 % (0-10); NRBC Flagged by Analyzer 0 % (0-5); Neutrophil # 4.72 X10^3/uL (2.7-7.7); Neutrophil % 63.3 % (47-70); Platelet Count 236 K/mm3 (150-450); RBC Distribution Width SD 39.5 fl (35.1-43.9); Red Blood Count 4.54 M/mm3 (4.2-5.4); White Blood Count 7.5 K/mm3 (4.4-11.0)
[2020-12-26 17:59] LABS: Thyroid Stim Hormone (TSH) 1.65 uIU/mL (0.358-3.74)
== END ==
PROVIDERS: PCP Internal Medicine; Visit Provider Nurse Practitioner Women's Health
DX: N92.0 Excessive and frequent menstruation with regular cycle (principal)
CPT/HCPCS: 36415; 84443; 85025

== ENCOUNTER 2021-03-02 15:50 | Emergency (ER) | payer MEDICAID, SELFPAY ==
[2021-03-02 15:51] VITALS: BP 131/59; PULSE 73; RESP 16; TEMP 36.3; O2SAT 99; BMI 27.4
--- NOTE | 2021-03-02 16:07 | US_ITS ---
HISTORY: menorrhagia EXAMINATION: US Transvaginal Non-OB TECHNIQUE: Transabdominal pelvic ultrasound was performed. Grayscale, spectral waveform, and color flow Doppler evaluation of the adnexa. COMPARISON: None FINDINGS: UTERUS: anteverted. The uterus measures 8.9 x 5.9 x 4.1 cm. There is no uterine mass. The endometrial stripe measures 8 mm in AP diameter which is within normal limits. RIGHT OVARY: 2.4 x 1.8 x 1.4 cm. Multiple follicles, largest up to 9 mm. There is normal arterial inflow and venous outflow present in the right ovary. LEFT OVARY: 2.7 x 2.0 x 1.5 cm. Dominant follicle 1.2 cm. There is normal arterial inflow and venous outflow present in the left ovary. FREE FLUID: None. US/Transvaginal Non- IMPRESSION: Unremarkable pelvic ultrasound. at 1708 Reported and signed by: Raymond Obrien MD Electronically Signed: Raymond Obrien MD at 17:07 EST Tel , Service support ,
--- NOTE | 2021-03-02 16:11 | ED.VIS.FEGU ---
HPI HPI - Female History of Present Illness Chief Complaint: Vag Bleeding Informant: patient Pain Pain: Positive for Pelvic Pain Onset: Days Context: Gradual Onset Timing: Waxes and wanes Quality: Positive for Cramping Location: Suprapubic Current Severity: Mild Maximum Severity: Moderate Bleeding Issue: Positive for Vaginal bleeding and Passing clots Onset: Days Context: Gradual Onset Timing: Waxes and wanes Current Severity: Heavy Current pads/hr: 1 Narrative Narrative: Patient present secondary to heavy vaginal bleeding. She reports history of irregular periods. Her bleeding started 3 days ago. Last 2 days she has been having very heavy bleeding, stating that she changes a pad every 45 minutes to 1 hour. She is passing clots and having increased cramping and pain. She has had similar in the past and required some p.o. pill in the emergency room to help stop her bleeding. She states she tried taking oral control pills to control her periods but was unsuccessful. She has had prior tubal ligation. She did take a test 2 days ago that was negative. [facility] Medical History Asthma Depression Depression with anxiety Home Medications escitalopram oxalate 10 mg tablet See Rx Instructions .ROUTE .COMPLEX #30 tab 11/22/20 [Rx Last Taken Unknown] levonorgestrel 0.15 mg-ethinyl estradiol 0.03 mg tablet 1 tab PO DAILY #84 tab 12/26/20 [Rx Last Taken Unknown] megestrol 40 mg PO DAILY #9 tab 03/02/21 [Rx Last Taken Unknown] Allergy/AdvReac Type Severity Reaction Status Date / Time No Known Allergies Allergy Verified 03/02/21 15:53 Family History Mother Cancer ovarian Grandmother Breast cancer CVA (cerebral vascular accident) Heart disease Father Hypertension Grandmother Hypertension Surgical History History of wisdom tooth extraction, class II edentulism Hx of tubal ligation Social History Smoking Status: Former smoker Electronic Cigarette Use: with nicotine alcohol intake: never details: social substance use type: does not use caffeine: No what type of physical activity do you participate in: walking frequency: 1-2 times per week seatbelt use: always do you feel safe at home: Yes additional social history: [id number] ROS ROS ED Constitutional Constitutional ED: Denies chills or fever(s) Eyes Eyes: Denies change in vision ENT ENT ED: Denies sore throat Cardiovascular Cardiovascular: Denies chest pain Respiratory/Chest Respiratory/Chest: Denies cough or dyspnea Gastrointestinal Gastrointestinal: Reports abdominal pain and nausea; Denies diarrhea or vomiting Genitourinary Genitourinary ED: Denies dysuria Musculoskeletal Musculoskeletal: Denies back pain Integumentary Denies rash Neurologic Neurologic: Denies headache(s) or weakness Allergic/Immunologic Allergic/Immunologic ED: Denies urticaria EXAM Physical Exam Const Vital Signs: 03/02/21 15:51 Temperature 97.4 F L Temperature Source Temporal Pulse Rate 73 Respiratory Rate 16 Blood Pressure 131/59 H Blood Pressure Mean 83 Pulse Ox 99 Oxygen Delivery Method Room Air Positive well nourished and well developed General Appearance ED: well developed HEENT Reports normocephalic and head/scalp atraumatic Eyes PERRL and EOMs intact bilaterally Neck supple Chest Wall inspection of chest normal and palpation of chest normal Resp normal respiratory effort and clear to auscultation bilaterally Cardio regular rate and regular rhythm GI normal to inspection, nondistended, normoactive bowel sounds, soft to palpation and non-tender Palpation: soft Extremity normal to inspection Neuro oriented x3 and no sensory deficits noted Sensorium / Orientation: alert Motor Exam: strength 5/5 throughout Psych mental status grossly normal Skin no rashes or lesions noted MDM MDM MDM Narrative Medical decision making narrative: Patient was given IV Toradol. CBC and test obtained. Pelvic ultrasound ordered. Lab Data Labs: Laboratory Results - last 24 hr 03/02/21 03/02/21 16:22 16:22 WBC 6.9 RBC 4.54 Hgb 12.1 Hct 38.1 MCV 83.9 MCH 26.7 L MCHC 31.8 L RDW Std Deviation 40.0 RDW Coeff of Debbie 13.0 Plt Count 227 MPV 11.3 Immature Gran % (Auto) 0.300 Neut % (Auto) 56.7 Lymph % (Auto) 29.4 [place] % (Auto) 11.6 H Eos % (Auto) 1.3 Baso % (Auto) 0.7 Absolute Neuts (auto) 3.9 Absolute Lymphs (auto) 2.03 Nucleated RBC % 0 Serum , Qual NEGATIVE Radiography Diagnostic Testing: Clinical Impression(s) from Imaging Studies Transvaginal US 03/02/21 16:07 IMPRESSION: Unremarkable pelvic ultrasound. at 1708 Reported and signed by: Raymond Obrien MD Electronically Signed: Raymond Obrien MD at 17:07 EST Tel , Service support , Treatment and Re-Evaluation Comments:: Lab work unremarkable with hemoglobin of 12.1. test negative. Pelvic ultrasound is unremarkable with an endometrial stripe of only 8 mm[address] I spoke with Dr. Borjas, on-call for [employer] ATTEND[employer]. She did asked the patient be started on Megace 40 mg daily x10 days. First dose will be given here and prescription sent to the pharmacy for her. Discharge Plan Triage Chief Complaint: Vag Bleeding ED Provider: Precious Saldivar Dx/Rx/DC Orders Clinical Impression: Menorrhagia Instructions: ED Heavy Menstrual Bleeding Prescriptions: New megestrol 40 mg tablet 40 mg PO DAILY Qty: 9 RF: 0 No Action levonorgestrel-ethinyl estrad [Altavera (28)] 0.15-0.03 mg tablet 1 tab PO DAILY Qty: 84 RF: 3 escitalopram oxalate 10 mg tablet See Rx Instructions .ROUTE .COMPLEX Qty: 30 RF: 12 Primary Care Provider: Marisa Sue Referrals: Precious Lema DO [STAFF PHYSICIAN] - 1-2 Weeks Marisa Sue MD [Primary Care Provider] - Disposition Disposition: Home, Self Care
[2021-03-02] MEDS: Ketorolac 30 MG/ML Syringe IV (16:21)
[2021-03-02 16:29] LABS: Absolute Lymphocyte Count 2.03 X10^3/uL (0.83-4.51); Absolute Neutrophil Count 3.9 X10^3/uL (2.0-7.7); Basophil# 0.05 X10^3/uL; Basophil% 0.7 % (0-1); Eosinophil# 0.09 X10^3/uL; Eosinophils% 1.3 % (0-5); Hematocrit 38.1 % (37-47); Hemoglobin 12.1 g/dL (12.0-15.0); Lymphocyte # 2.03 X10^3/ul (0.83-4.51); Lymphocyte % 29.4 % (19-41); Mean Corp Hgb Conc 31.8 g/dL (32-36); Mean Corpuscular Hgb 26.7 pg (27.0-32.0); Mean Corpuscular Volume 83.9 fL (81-99); Mean Platelet Vol. 11.3 fl (6.2-12.0); Monocyte% 11.6 % (0-10); NRBC Flagged by Analyzer 0 % (0-5); Neutrophil # 3.92 X10^3/uL (2.7-7.7); Neutrophil % 56.7 % (47-70); Platelet Count 227 K/mm3 (150-450); Red Blood Count 4.54 M/mm3 (4.2-5.4); White Blood Count 6.9 K/mm3 (4.4-11.0)
[2021-03-02 16:55] LABS: Internal QC Validated? YES +Cl - CLEAR BKGD; Pregnancy, Serum, hCG Quali. NEGATIVE Negative
[2021-03-02] MEDS: Megestrol 40 MG Tablet PO (17:57)
== END 2021-03-02 18:00 | disposition home or self-care (01) ==
PROVIDERS: Emergency Provider Emergency Medicine; PCP Internal Medicine
DX: N92.0 Excessive and frequent menstruation with regular cycle (principal); F32.A Depression, unspecified; J45.909 Unspecified asthma, uncomplicated; Z79.899 Other long term (current) drug therapy; Z87.891 Personal history of nicotine dependence
CPT/HCPCS: 76830; 84703; 85025; 96374; 99283

== ENCOUNTER 2021-03-23 19:39 | Emergency (ER) | payer MEDICAID, SELFPAY ==
[2021-03-23 19:40] VITALS: BP 126/72; PULSE 117; RESP 15; TEMP 37.8; O2SAT 97; BMI 28.6
--- NOTE | 2021-03-23 20:02 | RAD_ITS ---
INDICATION: cough EXAMINATION/TECHNIQUE: X-RAY - XR Chest 1 View COMPARISON: 03/19/2017 PA and lateral views of the chest. FINDINGS: LINES/DEVICES: None. LUNGS: Symmetric normal lung volumes. No airspace opacity or abnormal interstitial pattern. No nodule or mass. No pleural effusion or pneumothorax. MEDIASTINUM AND CARDIOVASCULAR STRUCTURES: Normal size and contour of the cardiomediastinal silhouette. No evidence of pulmonary vascular congestion. BONES AND SOFT TISSUES: Mild S shaped lateral curvature thoracolumbar spine. RAD/Chest 1 View (Portable) IMPRESSION: 1. No radiographic evidence of acute cardiopulmonary disease. Electronically Signed: Cliff Vilchis DO at 21:03 EST Tel , Service support ,
[2021-03-23 20:26] LABS: Absolute Lymphocyte Count 0.38 X10^3/uL (0.83-4.51); Absolute Neutrophil Count 4.9 X10^3/uL (2.0-7.7); Basophil# 0.02 X10^3/uL; Basophil% 0.3 % (0-1); Eosinophil# 0.01 X10^3/uL; Eosinophils% 0.2 % (0-5); Hematocrit 37.1 % (37-47); Hemoglobin 12.2 g/dL (12.0-15.0); Lymphocyte # 0.38 X10^3/ul (0.83-4.51); Lymphocyte % 6.4 % (19-41); Mean Corp Hgb Conc 32.9 g/dL (32-36); Mean Corpuscular Hgb 26.9 pg (27.0-32.0); Mean Corpuscular Volume 81.9 fL (81-99); Mean Platelet Vol. 11.4 fl (6.2-12.0); Monocyte# 0.67 X10^3/uL; Monocyte% 11.2 % (0-10); NRBC Flagged by Analyzer 0 % (0-5); Neutrophil # 4.87 X10^3/uL (2.7-7.7); Neutrophil % 81.6 % (47-70); POSITIVE DIFFERENTIAL YES; Platelet Count 180 K/mm3 (150-450); RBC Distribution Width CV 13.3 % (11.6-14.6); RBC Distribution Width SD 39.8 fl (35.1-43.9); Red Blood Count 4.53 M/mm3 (4.2-5.4)
[2021-03-23 20:40] LABS: Anion Gap 7 (5-15); BUN 12 mg/dL (7-18); BUN/Creat Ratio 15.6 RATIO (10-20); Calcium,Total 8.6 mg/dL (8.5-10.1); Chloride 111 mmol/L (98-107); Creatinine, Serum 0.77 mg/dL (0.55-1.02); EST Glomerular Filtration Rate 97 mL/min (>60); Est Glom Filt Rate - Afr Amer 117 mL/min (>60); Estimated Creatinine Clearance 88.33 ml/min; Glucose 183 mg/dL (74-106); Sodium Level 141 mmol/L (136-145)
[2021-03-23 20:51] LABS: Differential Indicated SCAN CRITERIA MET
--- NOTE | 2021-03-23 21:10 | EX.ED.DYSGE1 ---
HPI History of Present Illness Chief Complaint: Fever Narrative Narrative: 25-year-old female presenting with fever, chills, body aches, mild cough for the last 3 to 4 days. She denies chest pain. She is not dyspneic. She states she has had some decreased p.o. intake over the last 2 days. She has been vaccinated for COVID-19 x2. She was scheduled to get her booster in the near future but now she is sick. Patient has mild nausea but she is able to tolerate p.o. fluids and food but she does have decrease in this. Patient does not have any diarrhea or constipation. No vaginal complaints no urinary complaints. No concern for . [facility] Medical History Asthma Depression Depression with anxiety Home Medications escitalopram oxalate 10 mg tablet See Rx Instructions .ROUTE .COMPLEX #30 tab 11/22/20 [Rx Last Taken Unknown] levonorgestrel 0.15 mg-ethinyl estradiol 0.03 mg tablet 1 tab PO DAILY #84 tab 12/26/20 [Rx Last Taken Unknown] megestrol 40 mg PO DAILY #9 tab 03/02/21 [Rx Last Taken Unknown] Allergy/AdvReac Type Severity Reaction Status Date / Time No Known Allergies Allergy Verified 03/02/21 15:53 Family History Mother Cancer ovarian Grandmother Breast cancer CVA (cerebral vascular accident) Heart disease Father Hypertension Grandmother Hypertension Surgical History History of wisdom tooth extraction, class II edentulism Hx of tubal ligation Social History Smoking Status: Former smoker Electronic Cigarette Use: with nicotine alcohol intake: never details: social substance use type: does not use caffeine: No what type of physical activity do you participate in: walking frequency: 1-2 times per week seatbelt use: always do you feel safe at home: Yes additional social history: [id number] ROS ROS ED Constitutional Constitutional ED: Reports chills and fever(s); Denies sweats Eyes Eyes: Denies diplopia ENT ENT ED: Reports rhinorrhea; Denies sore throat Cardiovascular Cardiovascular: Denies chest pain or palpitations Respiratory/Chest Respiratory/Chest: Reports cough; Denies dyspnea Gastrointestinal Gastrointestinal: Reports nausea; Denies abdominal pain, constipation, diarrhea or vomiting Genitourinary Genitourinary ED: Denies hematuria Musculoskeletal Musculoskeletal: Reports myalgias; Denies arthralgias or neck pain Integumentary Denies Abrasions or rash Neurologic Neurologic: Denies headache(s), paresthesias or weakness EXAM Physical Exam Const Vital Signs: 03/23/21 19:40 Temperature 100.0 F H Temperature Source Temporal Pulse Rate 117 H Respiratory Rate 15 Blood Pressure 126/72 H Blood Pressure Mean 90 Pulse Ox 97 Oxygen Delivery Method Room Air Positive well nourished General Appearance ED: NAD; Negative for pallor HEENT Reports moist mucous membranes Negative for trauma Eyes PERRL and EOMs intact bilaterally Neck no lymphadenopathy and supple Chest Wall inspection of chest normal and palpation of chest normal Resp normal respiratory effort and clear to auscultation bilaterally Cardio regular rate and regular rhythm Extremity normal to inspection General Extremety ED: Negative for edema or tenderness General Extremity: Negative for edema Neuro oriented x3 and CN's II-XII intact bilaterally Sensorium / Orientation: alert Psych mental status grossly normal Skin General Skin Exam: Negative for jaundice or pallor MDM MDM MDM Narrative Medical decision making narrative: 25-year-old female presenting with mild viral syndrome. Patient tested negative for COVID-19 today. Her chest x-ray shows no acute cardiopulmonary process on my interpretation and the radiologist does agree. Patient's CBC shows a normal white blood cell count and her hemoglobin hematocrit are stable. Her renal function is normal however potassium is 3.0. Patient was given oral potassium supplementation as well as Zofran and ibuprofen in the ER. She states that she is able to tolerate p.o. at home but requested nausea medicine. She states she does not need a work note. Patient counseled on fluid hydration and monitoring for worsening of symptoms especially her oxygen levels. Patient is given return precautions. I did asked the patient if she would want monoclonal antibody should she test positive and she stated that she would not so I did not do a PCR test because it would be of no use at this point. Patient will quarantine at home. Impression: 1. Viral syndrome 2. Hypokalemia Lab Data Attestation: I reviewed the patient's lab results. Labs: Laboratory Results - last 24 hr 03/23/21 03/23/21 20:16 20:16 WBC 6.0 RBC 4.53 Hgb 12.2 Hct 37.1 MCV 81.9 MCH 26.9 L MCHC 32.9 RDW Std Deviation 39.8 RDW Coeff of Debbie 13.3 Plt Count 180 MPV 11.4 Immature Gran % (Auto) 0.300 Neut % (Auto) 81.6 H Lymph % (Auto) 6.4 L [place] % (Auto) 11.2 H Eos % (Auto) 0.2 Baso % (Auto) 0.3 Absolute Neuts (auto) 4.9 Absolute Lymphs (auto) 0.38 L Nucleated RBC % 0 Sodium 141 Potassium 3.0 L Chloride 111 H Carbon Dioxide 23.0 Anion Gap 7 BUN 12 Creatinine 0.77 Estim Creat Clear Calc 88.33 Est GFR (MDRD) Af Amer 117 Est GFR (MDRD) Non-Af 97 BUN/Creatinine Ratio 15.6 Glucose 183 H Calcium 8.6 Radiography Diagnostic Testing: Clinical Impression(s) from Imaging Studies Chest X-Ray 03/23/21 20:02 IMPRESSION: 1. No radiographic evidence of acute cardiopulmonary disease. Electronically Signed: Cliff Vilchis DO at 21:03 EST Tel , Service support , Discharge Plan Triage Chief Complaint: Fever ED Provider: Memo Brennan Dx/Rx/DC Orders Instructions: ED Viral Syndrome (Adult) Prescriptions: No Action levonorgestrel-ethinyl estrad [Altavera (28)] 0.15-0.03 mg tablet 1 tab PO DAILY Qty: 84 RF: 3 megestrol 40 mg tablet 40 mg PO DAILY Qty: 9 RF: 0 escitalopram oxalate 10 mg tablet See Rx Instructions .ROUTE .COMPLEX Qty: 30 RF: 12 Primary Care Provider: Marisa Sue Referrals: Marisa Sue MD [Primary Care Provider] - Disposition Disposition: Home, Self Care
[2021-03-23 21:15] VITALS: BP 132/74; PULSE 93; RESP 15; RESP 17; TEMP 36.7; O2SAT 96; O2SAT 98
[2021-03-23 21:21] LABS: Platelet Estimate ADEQUATE (ADEQ); Red Cell Morphology NORM C+C NORMAL (NORM C&C)
[2021-03-23] MEDS: Potassium Chloride Oral Tablet 20 MEQ 40 MEQ PO (21:24)
[2021-03-23] MEDS: Ibuprofen 600 MG Tablet PO (21:25)
[2021-03-23] MEDS: Ondansetron ODT 4 MG Tablet PO (21:25)
== END 2021-03-23 21:29 | disposition home or self-care (01) ==
PROVIDERS: Emergency Provider Student in an Organized Health Care Education/Training Program; PCP Internal Medicine; Visit Provider Student in an Organized Health Care Education/Training Program
DX: B34.9 Viral infection, unspecified (principal); R11.0 Nausea; R68.83 Chills (without fever); Z20.822 Contact with and (suspected) exposure to COVID-19; E87.6 Hypokalemia; F41.8 Other specified anxiety disorders; Z79.899 Other long term (current) drug therapy; Z87.891 Personal history of nicotine dependence; J45.909 Unspecified asthma, uncomplicated; R05.9 Cough, unspecified
CPT/HCPCS: 71045; 80048; 85025; 87426; 94760; 99284

== ENCOUNTER 2021-04-10 08:42 | Outpatient (RCR) | payer MEDICAID, SELFPAY ==
[2021-03-19 14:43] LABS: Hepatitis B Surf AB - EMP Reactive
[2021-03-21 16:23] LABS: V-Zoster IgG (Immunity) 199 index (Immune >165)
== END 2021-04-16 23:59 ==
LOC: EMPH 08:42
PROVIDERS: PCP Internal Medicine; Visit Provider Family Medicine Geriatric Medicine
DX: Z03.818 Encounter for observation for suspected exposure to other biological agents ruled out (principal)
CPT/HCPCS: 86706; 86787; 87426

== ENCOUNTER 2021-04-16 10:53 | Outpatient (CLI) | payer MEDICAID, SELFPAY ==
[2021-04-16 12:02] LABS: NATERA MAILED SPECIMEN
[2021-04-16 12:29] LABS: Prolactin 12.7 ng/mL; Thyroid Stim Hormone (TSH) 2.18 uIU/mL (0.358-3.74)
== END 2021-04-16 23:59 | disposition short-term general hospital (02) ==
LOC: LAB 10:55
PROVIDERS: PCP Internal Medicine; Visit Provider Obstetrics & Gynecology
DX: N93.9 Abnormal uterine and vaginal bleeding, unspecified (principal); N64.3 Galactorrhea not associated with childbirth; Z80.41 Family history of malignant neoplasm of ovary
CPT/HCPCS: 36415; 84146; 84443

== ENCOUNTER 2021-04-26 09:22 | Outpatient (CLI) | payer MEDICAID, SELFPAY ==
--- NOTE | 2021-04-26 09:29 | US_ITS ---
STUDY: ULTRASOUND OF THE FEMALE PELVIS - COMPLETE REASON FOR EXAM: Female, 25 years old. AUB LMP: 04/23/2021. TECHNIQUE: Transabdominal and Transvaginal TECHNICAL QUALITY: Adequate. COMPARISON: Comparison is made with prior examination dated 03/02/2021. FINDINGS: The uterus is anteverted and is in a midline position. The uterus measures 9.1 cm x 5 cm x 4.1 cm. Normal uterine cervix. The endometrium measures 5 mm in thickness, and is . There is no demonstrated endometrial mass. There is no demonstrated myometrial mass. I.U.D. - The patient does not have an I.U.D. The right ovary is visualized. The right ovary measures 2.2 cm x 2.1 x 1.4 cm. There is no right ovarian cyst or ovarian mass. There is no visualized right adnexal mass or complex lesion. There is normal arterial and normal venous vascularity. The left ovary is visualized. The left ovary measures 2.8 cm x 2.1 cm x 1.7 cm. There is no left ovarian cyst or ovarian mass. There is no visualized left adnexal mass or complex lesion. There is normal arterial and normal venous vascularity. There is no fluid in the cul-de-sac. The pre void volume of the bladder was 127 ml. US/Transvaginal Non- IMPRESSION: Normal female pelvis. Electronically Signed: Ammon Hunter MD at 11:59 EST ,
--- NOTE | 2021-04-26 09:29 | BI_ITS ---
MAMMOGRAPHY - BILATERAL DIAGNOSTIC REASON FOR EXAM: Female, 25 years old. Galacturia. PERTINENT HISTORY: Grandmother with breast cancer. Aunt with breast cancer. TECHNIQUE: Digital bilateral breast joseph (3D mammographic acquisition) in the CC and MLO projections. 2-D mediolateral oblique (MLO) and craniocaudad (CC) views of both breasts were obtained. CAD: Full Field Digital Mammography with Computer Added Detection was performed. COMPARISON: None. Baseline examination. FINDINGS: Breast Composition: The breasts are heterogeneously dense, which may obscure small masses. There are no dominant masses or suspicious calcifications. No other significant abnormalities are identified. BI/DIAG MAMM W/CAD, BILAT IMPRESSION: Negative diagnostic mammogram. With the patient''s history of galactorrhea, targeted retroareolar ultrasound of both breasts is recommended. ASSESSMENT CATEGORY: BIRADS Category 0: Incomplete. Need additional imaging evaluation. A letter regarding these results will be sent to the patient by the facility within 30 days. Approximately 10% of breast cancers are not detected by mammography. A normal mammogram should not delay biopsy of a clinically suspicious abnormality. Electronically Signed: Ammon Hunter MD at 10:27 EST ,
--- NOTE | 2021-04-26 09:29 | US_ITS ---
STUDY: ULTRASOUND OF THE FEMALE PELVIS - COMPLETE REASON FOR EXAM: Female, 25 years old. AUB LMP: 04/23/2021. TECHNIQUE: Transabdominal and Transvaginal TECHNICAL QUALITY: Adequate. COMPARISON: Comparison is made with prior examination dated 03/02/2021. FINDINGS: The uterus is anteverted and is in a midline position. The uterus measures 9.1 cm x 5 cm x 4.1 cm. Normal uterine cervix. The endometrium measures 5 mm in thickness, and is . There is no demonstrated endometrial mass. There is no demonstrated myometrial mass. I.U.D. - The patient does not have an I.U.D. The right ovary is visualized. The right ovary measures 2.2 cm x 2.1 x 1.4 cm. There is no right ovarian cyst or ovarian mass. There is no visualized right adnexal mass or complex lesion. There is normal arterial and normal venous vascularity. The left ovary is visualized. The left ovary measures 2.8 cm x 2.1 cm x 1.7 cm. There is no left ovarian cyst or ovarian mass. There is no visualized left adnexal mass or complex lesion. There is normal arterial and normal venous vascularity. There is no fluid in the cul-de-sac. The pre void volume of the bladder was 127 ml. US/Pelvic (Non ) IMPRESSION: Normal female pelvis. Electronically Signed: Ammon Hunter MD at 11:59 EST ,
--- NOTE | 2021-04-26 09:29 | US_ITS ---
STUDY: ULTRASOUND BREAST - RIGHT REASON FOR EXAM: Female, 25 years old. Galacturia. TECHNIQUE: Axial and longitudinal images of the RIGHT breast were performed with a high resolution ultrasound transducer. # OF IMAGES: 15 COMPARISON: Comparison is made with prior mammogram done earlier in the day. FINDINGS: RIGHT Breast: The retroareolar region of the breast was examined with ultrasound. No sonographic abnormalities. IMPRESSION: No sonographic abnormality is seen. ASSESSMENT CATEGORY: BIRADS Category 1: Negative. A letter regarding these results will be sent to the patient by the facility within 30 days. Electronically Signed: Ammon Hunter MD at 11:56 EST , STUDY: ULTRASOUND BREAST - LEFT REASON FOR EXAM: Female, 25 years old. Galactorrhea. TECHNIQUE: Axial and longitudinal images of the LEFT breast were performed with a high resolution ultrasound transducer. # OF IMAGES: 15 COMPARISON: Comparison is made with prior mammogram done earlier today. FINDINGS: LEFT Breast: The retroareolar region of the breast was examined by ultrasound. No sonographic abnormality is seen. US/Breast Limited Unilateral IMPRESSION: No sonographic abnormalities. ASSESSMENT CATEGORY: BIRADS Category 1: Negative. A letter regarding these results will be sent to the patient by the facility within 30 days. Electronically Signed: Ammon Hunter MD at 11:57 EST ,
== END 2021-04-26 23:59 | disposition home or self-care (01) ==
LOC: OPBI 09:23
PROVIDERS: PCP Internal Medicine; Referring Provider Obstetrics & Gynecology; Visit Provider Obstetrics & Gynecology
DX: N64.3 Galactorrhea not associated with childbirth (principal); N93.9 Abnormal uterine and vaginal bleeding, unspecified
CPT/HCPCS: 77062; 76642; 76830; 76856; 77066; G0279

== ENCOUNTER 2021-05-14 08:48 | Outpatient (RCR) | payer MEDICAID, SELFPAY | END 2021-05-14 23:59 | LOC: EMPH 08:48 | PROVIDERS: PCP Internal Medicine; Visit Provider Family Medicine Geriatric Medicine | DX: Z03.818 Encounter for observation for suspected exposure to other biological agents ruled out (principal) | CPT/HCPCS: 87426 ==

== ENCOUNTER → 2023-05-05 | Outpatient (CLI) | payer MEDICAID, SELFPAY ==
--- OUTSIDE RECORDS SUMMARY | 2023-05-05 16:55 | XMS RPT_ITS | CCD ---
Author Name Unknown Address [address] [place] [address] Organization [facility] Care Team Providers Care Department Director Name Role Phone CLARKE FRAGOSO Unavailable Unavailable DARBY DAVIDSON Unavailable UnavailTRELL Smith Unavailable Unavailable JUDITH CARLOS Attending Unavailable JUDITH CARLOS Primary Care Unavailable JUDITH CARLOS Admitting Unavailable Marisa Sue MD Primary Care Provider Marisa Sue MD Primary Care Provider No, Physician Primary Care Provider Unavailcarline Saunders MD, Augusto Shelbyahim Ali Primary Care Provi racheal AUGUSTO SAUNDERSAHIM ALI Primary Care Unava ilable Chip KRAMER, Augusto Astudilloim Mercedes Primary Care Provi racheal SELF, SELF Referring Unavailable ELVIS CARLOS Attending Unavailable CHIP MARMOLEJO LEONARD ALI Primary Care Unava ilable MONTSE BERNAL Admitting Unavailable CHIP MARMOLEJO LEONARD ALI Primary Care Unava ilable MONTSE BERNAL Attending Unavailable CHIP MARMOLEJO LEONARD ALI Primary Care Unava ilable GAIL MARCOS Attending Unavailab svetlana SAUNDERS MARMOLEJO LEONARD ALI Primary Care Unava ilable PAULA ORTEZ Attending Unavailable CHIP MARMOLEJO LEONARD ALI Primary Care Unava ilable YUDELKA BLANCHARD Attending Unavailable SAUNDERS, AUGUSTO ASTUDILLOIM MERCEDES Primary Care Unava ilable DOLORES, MONTSE FELICIANO Attending Unavailable SAUNDERS, AUGUSTO ASTUDILLOIM ALI Primary Care Unava ilable ELLEN, SALINAS AVILA Attending Unavai sam COOMBS, TRISHA AN Attending Unavaila ble CHIP, AUGUSTO SHELBYAHIM MERCEDES Primary Care Unava ilable BREEZY, ILANA APPLE Attending Unavailable SAUNDERS, AUGUSTO ASTUDILLOIM MERCEDES Primary Care Unava ilable SAUNDERS, MARMOLEJO LEONARD MERCEDES Primary Care Unava ilable SABINE, KENAN METZGER Attending Unavailable SAUNDERS, AUGUSTO GRACE Attending Unava ilable SAUNDERS, MARMOLEJORASHEL ASTUDILLOIM MERCEDES Primary Care Unava ilable SAUNDERS, AUGUSTO GRACE Attending Unava ilable SAUNDERS, MARMOLEJO LEONARD MERCEDES Primary Care Unava ilable SAUNDERS, MARMOLEJO LEONARD MERCEDES Primary Care Unava ilable SAUNDERS, AUGUSTO GRACE Attending Unava ilable Medications Current Medications Medication Drug Class(es) Dates Sig (Normalized) Sig (Original) amoxicillin 500 mg oral capsule (2 sources) Penicillin-class Antibacterial Start: 02-09-2023 End: 02-19-2023 take 1 capsule by mouth twice daily amoxicillin (AMOXIL) 500 MG capsule Indications: Strep throat Take 1 (one) capsule (500 mg total) by mouth 2 (two) times a day for 10 days . 20 capsule 0 02/09/2023 02/19/2023 Active Completed/Discontinued Medications Medication Drug Class(es) Dates Sig (Normalized) Sig (Original) acetaminophen 325 mg oral tablet (5 sources) take 2 tablets by mouth every six hours as needed acetaminophen (TYLENOL) 325 mg tablet Take 650 mg by mouth every 6 hours as needed. 0 Active Problems Active Problems Problem Classification Problem Date Documented Date Episodic/Chronic Acute bronchitis (1 source) Acute bronchitis; Translations: [Acute bronchitis, unspecified] Episodic Administrative/socia l admission (2 sources) Encounter for pre-employment examination; Translations: [Encounter for pre-employment examination] Onset: 09-02-2022 Episodic Anxiety disorders (20 sources) Mixed anxiety and depressive disorder; Translations: [Anxiety disorder, unspecified] Onset: 05-24-2021 05-24-2021 Chronic Esophageal disorders (9 sources) Gastroesophageal reflux disease without esophagitis; Translations: [Gastro-esophageal reflux disease without esophagitis] Onset: 05-24-2021 05-24-2021 Chronic Headache; including migraine (6 sources) Migraine without aura, not refractory ; Translations: [Migraine without aura, not intractable, without status migrainosus] Chronic Immunizations and screening for infectious disease (4 sources) Suspected disease caused by 2019-nCoV; Translations: [Suspected COVID-19 virus infection] Episodic Malaise and fatigue (3 sources) Fatigue; Translations: [Other fatigue] Onset: 02-01-2022 Episodic Mood disorders (2 sources) Mood disorders; Translations: [Depression, unspecified] Onset: 01-30-2022 Nausea and vomiting (3 sources) Nausea; Translations: [Nausea] Onset: 01-01-2023 01-01-2023 Episodic Other hereditary and degenerative nervous system conditions (20 sources) Restless legs; Translations: [Restless legs syndrome] Onset: 05-24-2021 05-24-2021 Chronic Other hereditary and degenerative nervous system conditions (2 sources) Restless legs syndrome; Translations: [Restless legs syndrome] Onset: 01-30-2022 Chronic Other lower respiratory disease (1 source) Cough; Translations: [Cough, unspecified type] 10-15-2022 Episodic Other non-traumatic joint disorders (1 source) Shoulder pain; Translations: [Pain in right shoulder] 07-29-2022 Episodic Other non-traumatic joint disorders (4 sources) Pain in left shoulder; Translations: [Pain in joint, shoulder region] Onset: 03-24-2023 03-24-2023 Episodic Other nutritional; endocrine; and metabolic disorders (1 source) History of iron deficiency; Translations: [Personal history of other endocrine, nutritional and metabolic disease] Episodic Other upper respiratory disease (1 source) Congestion of nasal sinus; Translations: [Nasal congestion] 02-09-2023 Episodic Other upper respiratory disease (2 sources) Nasal congestion; Translations: [Nasal congestion] Onset: 02-09-2023 Episodic Other upper respiratory infections (4 sources) Sinusitis; Translations: [Chronic sinusitis, unspecified] Onset: 03-05-2023 01-01-2023 Chronic Other upper respiratory infections (13 sources) Upper respiratory infection; Translations: [Acute upper respiratory infection, unspecified] Onset: 06-27-2022 Episodic Unclassified (1 source) Contact with and (suspected) exposure to covid-19; Translations: [Contact with and (suspected) exposure to covid-19] Onset: 01-05-2023 Unclassified (1 source) Cough, unspecified; Translations: [Cough, unspecified] Onset: 10-15-2022 Viral infection (1 source) Viral disease; Translations: [Viral infection, unspecified] Episodic Past or Other Problems Problem Classification Problem Date Documented Da te Episodic/Chronic Genitourinary symptoms and ill-defined conditions (3 sources) Dysuria; Translations: [Dysuria] Onset: 11-05-2022 11-05-2022 Episodic Miscellaneous mental health disorders (5 sources) depression; Translations: [ depression] Onset: 01-18-2016 01-18-2016 Episodic Other complications of (5 sources) High risk ; Translations: [Supervision of other high risk pregnancies, second trimester] Onset: 06-07-2016 06-07-2016 Episodic Other non-traumatic joint disorders (18 sources) Pain in right knee; Translations: [Pain in joint, lower leg] Onset: 01-30-2022 Episodic Other non-traumatic joint disorders (2 sources) Pain in right shoulder; Translations: [Pain in right shoulder] Onset: 07-29-2022 Episodic Other and delivery including normal (10 sources) ; Translations: [Encounter for supervision of normal , unspecified, unspecified trimester] Onset: 05-01-2015 08-07-2016 Episodic Otitis media and related conditions (3 sources) Otitis media of left ear; Translations: [Otitis media, unspecified, left ear] Onset: 06-27-2022 06-27-2022 Episodic Spondylosis; intervertebral disc disorders; other back problems (3 sources) Acute thoracic back pain; Translations: [Pain in thoracic spine] Onset: 11-05-2022 11-05-2022 Episodic Unclassified (1 source) Contact with and (suspected) exposure to covid-19; Translations: [Contact with and (suspected) exposure to covid-19] Onset: 01-05-2023 Unclassified (1 source) Cough, unspecified; Translations: [Cough, unspecified] Onset: 10-15-2022 Results Test Name Value Interpretation Reference Range Facil ity Vital Signs Date Time Vital Sign Value [facility]forming [facility]-31-2023 13:51-0500 Body mass index (BMI) [Ratio] 35.52 kg/m2 Augusto Saunders MD Work Phone: [facility] 03-31-2023 13:51-0500 Body temperature 97.59 [degF] Augusto Saunders MD Work Phone: [facility] 03-31-2023 13:51-0500 Body weight 88.09 kg Augusto Saunders MD Work Phone: [facility] 03-31-2023 13:51-0500 Diastolic blood pressure 85 mm[Hg] Augusto Saunders MD Work Phone: [facility] 03-31-2023 13:51-0500 Heart rate 60 /min Augusto Saunders MD Work Phone: [facility] 03-31-2023 13:51-0500 SaO2% (BldA) [Mass fraction] 98 % Augusto Saunders MD Work Phone: [facility] 03-31-2023 13:51-0500 Systolic blood pressure 124 mm[Hg] Augusto Saunders MD Work Phone: [facility] 03-24-2023 10:08-0500 Body height 157.5 cm Augusto Saunders MD Work Phone: [facility] 03-24-2023 10:08-0500 Body mass index (BMI) [Ratio] 38.04 kg/m2 Augusto Saunders MD Work Phone: [facility] 03-24-2023 10:08-0500 Body temperature 98.1 [degF] Augusto Saunders MD Work Phone: [facility] 03-24-2023 10:08-0500 Body weight 94.35 kg Augusto Saunders MD Work Phone: [facility] 03-24-2023 10:08-0500 Diastolic blood pressure 80 mm[Hg] Augusto Saunders MD Work Phone: [facility] 03-24-2023 10:08-0500 Heart rate 77 /min Augusto Saunders MD Work Phone: [facility] 03-24-2023 10:08-0500 SaO2% (BldA) [Mass fraction] 98 % Augusto Saunders MD Work Phone: [facility] 03-24-2023 10:08-0500 Systolic blood pressure 115 mm[Hg] Augusto Saunders MD Work Phone: [facility] 03-05-2023 17:13-0500 Body mass index (BMI) [Ratio] 34.93 kg/m2 Paula Ortez PA-C Work Phone: [facility] 03-05-2023 17:13-0500 Body temperature 98.29 [degF] Paula Ortez PA-C Work Phone: [facility] 03-05-2023 17:13-0500 Body weight 86.64 kg Paula Ortez PA-C Work Phone: [facility] 03-05-2023 17:13-0500 Diastolic blood pressure 84 mm[Hg] Paula Ortez PA-C Work Phone: [facility] 03-05-2023 17:13-0500 Heart rate 71 /min Paula Ortez PA-C Work Phone: [facility] 03-05-2023 17:13-0500 Respiratory rate 16 /min Paula Ortez PA-C Work Phone: [facility] 03-05-2023 17:13-0500 SaO2% (BldA) [Mass fraction] 98 % Paula Ortez PA-C Work Phone: [facility] 03-05-2023 17:13-0500 Systolic blood pressure 123 mm[Hg] Paula Ortez PA- C Work Phone: [facility] 02-09-2023 11:07-0500 Heart rate 105 /min Yudelka Ree PA-C Work Phone: [facility] 02-09-2023 11:02-0500 Body mass index (BMI) [Ratio] 34.39 kg/m2 Yudelka Ree PA-C Work Phone: [facility] 02-09-2023 11:02-0500 Body temperature 99.9 [degF] Yudelka Ree PA-C Work Phone: [facility] 02-09-2023 11:02-0500 Body weight 85.28 kg Yudelka Ree PA-C Work Phone: [facility] 02-09-2023 11:02-0500 Diastolic blood pressure 72 mm[Hg] Yudelka Ree PA-C Work Phone: [facility] 02-09-2023 11:02-0500 Respiratory rate 18 /min Yudelka Ree PA-C Work Phone: [facility] 02-09-2023 11:02-0500 SaO2% (BldA) [Mass fraction] 95 % Yudelka Ree PA-C Work Phone: [facility] 02-09-2023 11:02-0500 Systolic blood pressure 104 mm[Hg] Yudelka Rodríguezg P A-C Work Phone: [facility] 01-05-2023 13:01-0400 Body height 157.5 cm Montse Bernal SEATING CAPTAIN Work Phone: [facility] 01-05-2023 13:01-0400 Body mass index (BMI) [Ratio] 34.4 kg/m2 Montse Bernal SEATING CAPTAIN Work Phone: [facility] 01-05-2023 13:01-0400 Body temperature 98.29 [degF] Montse Bernal SEATING CAPTAIN Work Phone: [facility] 10-22-2023 13:01-0400 Body weight 85.32 kg Montse Bernal SEATING CAPTAIN Work Phone: [facility] 01-05-2023 13:01-0400 Diastolic blood pressure 78 mm[Hg] Montse Bernal SEATING CAPTAIN Work Phone: [facility] 01-05-2023 13:01-0400 Heart rate 64 /min Montse Bernal SEATING CAPTAIN Work Phone: [facility] 01-05-2023 13:01-0400 Respiratory rate 12 /min Montse Bernal SEATING CAPTAIN Work Phone: [facility] 01-05-2023 13:01-0400 SaO2% (BldA) [Mass fraction] 98 % Montse Bernal SEATING CAPTAIN Work Phone: [facility] 01-05-2023 13:01-0400 Systolic blood pressure 117 mm[Hg] Montse Bernal C PINMAKER Work Phone: [facility] 01-01-2023 13:29-0400 Body mass index (BMI) [Ratio] 34.75 kg/m2 Christopher Ellen PA-C Work Phone: [facility] 01-01-2023 13:29-0400 Body temperature 98.49 [degF] Christopher Ellen PA-C Work Phone: [facility] 01-01-2023 13:29-0400 Body weight 86.18 kg Christopher Ellen PA-C Work Phone: [facility] 01-01-2023 13:29-0400 Diastolic blood pressure 81 mm[Hg] Christopher Ellen PA-C Work Phone: [facility] 01-01-2023 13:29-0400 Heart rate 91 /min Christopher Ellen PA-C Work Phone: [facility] 01-01-2023 13:29-0400 Respiratory rate 18 /min Christopher Ellen PA-C Work Phone: [facility] 01-01-2023 13:29-0400 SaO2% (BldA) [Mass fraction] 96 % Claytonremy Ellen PA-C Work Phone: [facility] 01-01-2023 13:29-0400 Systolic blood pressure 121 mm[Hg] Salinas Traore in PA-C Work Phone: [facility] 11-05-2022 13:22-0400 Body mass index (BMI) [Ratio] 33.47 kg/m2 Trisha Phillipsey SEATING CAPTAIN Work Phone: [facility] 11-05-2022 13:22-0400 Body temperature 97.5 [degF] Trisha Phillipsey SEATING CAPTAIN Work Phone: [facility] 11-05-2022 13:22-0400 Body weight 83.01 kg Trisha Phillipsey SEATING CAPTAIN Work Phone: [facility] 11-05-2022 13:22-0400 Diastolic blood pressure 78 mm[Hg] Trisha Phillipsey SEATING CAPTAIN Work Phone: [facility] 11-05-2022 13:22-0400 Heart rate 66 /min Trisha Phillipsey SEATING CAPTAIN Work Phone: [facility] 11-05-2022 13:22-0400 Respiratory rate 16 /min Trisha Phillipsey SEATING CAPTAIN Work Phone: [facility] 11-05-2022 13:22-0400 SaO2% (BldA) [Mass fraction] 98 % Trisha Phillipsey SEATING CAPTAIN Work Phone: [facility] 11-05-2022 13:22-0400 Systolic blood pressure 111 mm[Hg] Trisha Sosapsey SEATING CAPTAIN Work Phone: [facility] 10-15-2022 19:02-0400 Body height 157.5 cm Ilana Breezy PA-C Work Phone: [facility] 10-15-2022 19:02-0400 Body mass index (BMI) [Ratio] 34.2 kg/m2 Ilana Breezy PA-C Work Phone: [facility] 10-15-2022 19:02-0400 Body temperature 98.8 [degF] Ilana Breezy PA-C Work Phone: [facility] 10-15-2022 19:02-0400 Body weight 84.82 kg Ilana Breezy PA-C Work Phone: [facility] 10-15-2022 19:02-0400 Diastolic blood pressure 78 mm[Hg] Ilana Breezy PA-C Work Phone: [facility] 10-15-2022 19:02-0400 Heart rate 75 /min Ilana Breezy PA-C Work Phone: [facility] 10-15-2022 19:02-0400 Respiratory rate 18 /min Ilana Breezy PA-C Work Phone: [facility] 10-15-2022 19:02-0400 SaO2% (BldA) [Mass fraction] 97 % Ilana Breezy PA-C Work Phone: [facility] 10-15-2022 19:02-0400 Systolic blood pressure 111 mm[Hg] Ilana Breezy PA-C Work Phone: [facility] 09-09-2022 15:34-0400 Body height 157.5 cm Augusto Saunders MD Work Phone: [facility] 09-09-2022 15:34-0400 Body mass index (BMI) [Ratio] 33.69 kg/m2 Augusto Saunders MD Work Phone: [facility] 09-09-2022 15:34-0400 Body temperature 98.49 [degF] Augusto Saunders MD Work Phone: [facility] 09-09-2022 15:34-0400 Body weight 83.55 kg Augusto Saunders MD Work Phone: [facility] 09-09-2022 15:34-0400 Diastolic blood pressure 82 mm[Hg] Augusto Saunders MD Work Phone: [facility] 09-09-2022 15:34-0400 Heart rate 69 /min Augusto Saunders MD Work Phone: [facility] 09-09-2022 15:34-0400 SaO2% (BldA) [Mass fraction] 98 % Augusto Saunders MD Work Phone: [facility] 09-09-2022 15:34-0400 Systolic blood pressure 120 mm[Hg] Augusto Saunders MD Work Phone: [facility] 07-29-2022 11:04-0400 Body height 157.5 cm Montse Bernal SEATING CAPTAIN Work Phone: [facility] 07-29-2022 11:04-0400 Body mass index (BMI) [Ratio] 33.84 kg/m2 Monste Evansy SEATING CAPTAIN Work Phone: [facility] 07-29-2022 11:04-0400 Body temperature 98.8 [degF] Montse Evansy SEATING CAPTAIN Work Phone: [facility] 07-29-2022 11:04-0400 Body weight 83.92 kg Montse Evansy SEATING CAPTAIN Work Phone: [facility] 07-29-2022 11:04-0400 Diastolic blood pressure 56 mm[Hg] Montse Evansy SEATING CAPTAIN Work Phone: [facility] 07-29-2022 11:04-0400 Heart rate 63 /min Montse Evansy SEATING CAPTAIN Work Phone: [facility] 07-29-2022 11:04-0400 Respiratory rate 12 /min Montse Evansy SEATING CAPTAIN Work Phone: [facility] 07-29-2022 11:04-0400 SaO2% (BldA) [Mass fraction] 98 % Montse Evansy SEATING CAPTAIN Work Phone: [facility] 07-29-2022 11:04-0400 Systolic blood pressure 109 mm[Hg] Montse Miller PINMAKER Work Phone: [facility] 06-27-2022 11:12-0400 Body mass index (BMI) [Ratio] 34 kg/m2 Gail Parker SEATING CAPTAIN Work Phone: [facility] 06-27-2022 11:12-0400 Body temperature 98.91 [degF] Gail Parker SEATING CAPTAIN Work Phone: [facility] 06-27-2022 11:12-0400 Body weight 84.32 kg Gail Marcos SEATING CAPTAIN Work Phone: [facility] 06-27-2022 11:12-0400 Diastolic blood pressure 73 mm[Hg] Gail Marcos SEATING CAPTAIN Work Phone: [facility] 06-27-2022 11:12-0400 Heart rate 70 /min Gail Marcos SEATING CAPTAIN Work Phone: [facility] 06-27-2022 11:12-0400 Respiratory rate 16 /min Gail Marcos SEATING CAPTAIN Work Phone: [facility] 06-27-2022 11:12-0400 SaO2% (BldA) [Mass fraction] 97 % Gail Parker SEATING CAPTAIN Work Phone: [facility] 06-27-2022 11:12-0400 Systolic blood pressure 117 mm[Hg] Gail Marcos SEATING CAPTAIN Work Phone: [facility] 03-15-2022 10:27-0500 Body height 157.5 cm Augusto Saunders MD Work Phone: [facility] 03-15-2022 10:27-0500 Body mass index (BMI) [Ratio] 33.4 kg/m2 Augusto Saunders MD Work Phone: [facility] 03-15-2022 10:27-0500 Body temperature 98.2 [degF] Augusto Saunders MD Work Phone: [facility] 03-15-2022 10:27-0500 Body weight 82.83 kg Augusto Saunders MD Work Phone: [facility] 03-15-2022 10:27-0500 Diastolic blood pressure 87 mm[Hg] Augusto Saunders MD Work Phone: [facility] 03-15-2022 10:27-0500 Heart rate 105 /min Augusto Saunders MD Work Phone: [facility] 03-15-2022 10:27-0500 SaO2% (BldA) [Mass fraction] 96 % Augusto Saunders MD Work Phone: [facility] 03-15-2022 10:27-0500 Systolic blood pressure 131 mm[Hg] Augusto Saunders MD Work Phone: [facility] 03-07-2022 10:07-0500 Body height 157.5 cm Augusto Saunders MD Work Phone: [facility] 03-07-2022 10:07-0500 Body mass index (BMI) [Ratio] 33.87 kg/m2 Augusto Saunders MD Work Phone: [facility] 03-07-2022 10:07-0500 Body temperature 98.29 [degF] Augusto Saunders MD Work Phone: [facility] 03-07-2022 10:07-0500 Body weight 84.01 kg Augusto Saunders MD Work Phone: [facility] 03-07-2022 10:07-0500 Diastolic blood pressure 81 mm[Hg] Augusto Saunders MD Work Phone: [facility] 03-07-2022 10:07-0500 Heart rate 76 /min Augusto Saunders MD Work Phone: [facility] 03-07-2022 10:07-0500 SaO2% (BldA) [Mass fraction] 97 % Augusto Saunders MD Work Phone: [facility] 03-07-2022 10:07-0500 Systolic blood pressure 122 mm[Hg] Augusto Saunders MD Work Phone: [facility] 01-30-2022 12:17-0500 Body height 157.5 cm Augusto Saunders MD Work Phone: [facility] 01-30-2022 12:17-0500 Body mass index (BMI) [Ratio] 34.82 kg/m2 Augusto Saunders MD Work Phone: [facility] 01-30-2022 12:17-0500 Body temperature 97.59 [degF] Augusto Saunders MD Work Phone: [facility] 01-30-2022 12:17-0500 Body weight 86.36 kg Augusto Saunders MD Work Phone: [facility] 01-30-2022 12:17-0500 Diastolic blood pressure 74 mm[Hg] Augusto Saunders MD Work Phone: [facility] 01-30-2022 12:17-0500 Heart rate 72 /min Augusto Saunders MD Work Phone: [facility] 01-30-2022 12:17-0500 SaO2% (BldA) [Mass fraction] 98 % Augusto Saunders MD Work Phone: [facility] 01-30-2022 12:17-0500 Systolic blood pressure 127 mm[Hg] Augusto Saunders MD Work Phone: [facility] 12-10-2021 11:01-0400 Body height 157.5 cm Paridhi Geronimo SEATING CAPTAIN Work Phone: [facility] 12-10-2021 11:01-0400 Body mass index (BMI) [Ratio] 34.2 kg/m2 Paridhi Geronimo SEATING CAPTAIN Work Phone: [facility] 12-10-2021 11:01-0400 Body temperature 99 [degF] Paridhi Geronimo SEATING CAPTAIN Work Phone: [facility] 12-10-2021 11:01-0400 Body weight 84.82 kg Paridhi Geronimo SEATING CAPTAIN Work Phone: [facility] 12-10-2021 11:01-0400 Diastolic blood pressure 80 mm[Hg] Paridhi Geronimo SEATING CAPTAIN Work Phone: [facility] 12-10-2021 11:01-0400 Heart rate 80 /min Georgiana Melton SEATING CAPTAIN Work Phone: [facility] [facility] 12-10-2021 11:01-0400 Respiratory rate 16 /min Georgiana Melton SEATING CAPTAIN Work Phone: [facility] 12-10-2021 11:01-0400 SaO2% (BldA) [Mass fraction] 99 % Georgiana Melton SEATING CAPTAIN Work Phone: [facility] 12-10-2021 11:01-0400 Systolic blood pressure 116 mm[Hg] Georgiana Melton SEATING CAPTAIN Work Phone: [facility] Encounters Encounter Date Encounter Type Care Provider Facility Start: 03-31-2023 End: 03-31-2023 ambulatory AUGUSTO SAUNDERS [facility] Start: 03-31-2023 End: 03-31-2023 Office outpatient visit 10 minutes Augusto Saunders MD Work Phone: [facility] Procedures Date Procedure Procedure Detail Performing Clinician Start: 02-09-2023 Iadna streptococcus group a amplified probe tq Yudelka GARCIA-C Work Phone: Start: 01-05-2023 Sars-cov-2 detection by dna/rna Montse Bernal SEATING CAPTAIN Work Phone: Start: 01-01-2023 Sars-cov-2 detection by dna/rna Salinas GARCIA-C Work Phone: Start: 11-05-2022 Urnls dip stick/tabl et rgnt auto w/o microscopy Trisha Coombs SEATING CAPTAIN Work Phone: Start: 07-29-2022 Radex shoulder compl ete minimum 2 views Montse Bernal SEATING CAPTAIN Work Phone: Start: 03-15-2022 Sars-cov-2 detection by dna/rna Augusto Saunders MD Work Phone: Start: 03-15-2022 Iaadiadoo influenza Ramon Saunders MD Work Phone: Start: 12-10-2021 Iadna streptococcus group a amplified probe tq Georgiana Geronimo SEATING CAPTAIN Work Phone: Start: 12-10-2021 Sars-cov-2 detection by dna/rna Georgiana Melton SEATING CAPTAIN Work Phone: Plan of Treatment Date Care Activity Detail Author Start: 12-17-2028 Tetanus vaccination Tetanus: Every 10yrs [facility] Start: 12-17-2028 Urine microalbumin profile DTAP,TDAP,TD (9 - Td or Tdap) [facility] Start: 2023 PAP TESTING PAP TESTING [facility] Start: 04-21-2023 End: 04-21-2023 Patient encounter procedure 04/21/2023 3:30 PM EST Office Visit [facility] [address] [place] [address] Augusto Saunders MD [address] [place] [address] [facility] Start: 03-12-2023 End: 03-12-2023 Patient encounter procedure 03/12/2023 8:45 AM EST Office Visit [facility] [address] [facility] [place] [address] Augusto Saunders MD [address] [place] [address] [facility] Start: 03-07-2023 COVID-19 Vaccine (#1) COVID-19 Vaccine (#1) [facility] Immunizations Immunization Date Immunization Notes Care Provider Fa cility 11-19-2019 influenza virus vacc ine, unspecified formulation Jessica Older [employer].SEATING CAPTAIN Work Phone: [facility] Work Phone: 12-17-2018 diphtheria, tetanus toxoids and acellular pertussis vaccine, unspecified formulation Jessica Older [employer] Work Phone: [facility] Work Phone: 12-17-2018 tetanus toxoid, redu erin diphtheria toxoid, and acellular pertussis vaccine, adsorbed Jessica Older [employer].SEATING CAPTAIN Work Phone: [facility] Work Phone: 01-18-2016 influenza, injectabl e, quadrivalent, contains preservative Jessica Older [employer].SEATING CAPTAIN Work Phone: [facility] 08-10-2015 tetanus toxoid, redu erin diphtheria toxoid, and acellular pertussis vaccine, adsorbed Jessica Older [employer].SEATING CAPTAIN Work Phone: [facility] 02-16-2009 novel influenza-H1N1 -09, preservative-free, injectable Jessica Older [employer] Work Phone: [facility] Work Phone: 10-05-2008 tetanus toxoid, redu erin diphtheria toxoid, and acellular pertussis vaccine, adsorbed Jessica Older [employer]IC.SEATING CAPTAIN Work Phone: [facility] 02-05-2008 influenza virus vacc ine, unspecified formulation Jessica Older [employer]IC.SEATING CAPTAIN Work Phone: [facility] 02-05-2008 influenza virus vacc ine, whole virus Jessica Older [employer] CR[employer]IC.SEATING CAPTAIN Work Phone: [facility] Work Phone: 02-05-2008 meningococcal polysaccharide (groups A, C, Y and W-135) diphtheria toxoid conjugate vaccine (MCV4P) Jessica Older [employer].SEATING CAPTAIN Work Phone: [facility] 08-26-2007 human papilloma viru s vaccine, quadrivalent Jessica Older [employer]IC.SEATING CAPTAIN Work Phone: [facility] 04-27-2007 human papilloma viru s vaccine, quadrivalent Jessica Older [employer]IC.SEATING CAPTAIN Work Phone: [facility] 02-23-2007 human papilloma viru s vaccine, quadrivalent Jessica Older [employer] CR[employer]IC.SEATING CAPTAIN Work Phone: [facility] 02-23-2007 influenza virus vacc ine, unspecified formulation Jessica Older [employer] CR[employer]IC.SEATING CAPTAIN Work Phone: [facility] 02-23-2007 influenza virus vacc ine, whole virus Jessica Older [employer]IC.SEATING CAPTAIN Work Phone: [facility] Work Phone: 07-09-2000 diphtheria, tetanus toxoids and acellular pertussis vaccine Jessica Older [employer]IC.SEATING CAPTAIN Work Phone: [facility] 07-09-2000 measles, mumps and rubella virus vaccine Jessica Older [employer] CR[employer]IC.SEATING CAPTAIN Work Phone: [facility] 07-09-2000 poliovirus vaccine, inactivated Jessica Older [employer]IC.SEATING CAPTAIN Work Phone: [facility] 07-09-2000 varicella virus vaccine Jessica Older [employer].SEATING CAPTAIN Work Phone: [facility] 11-22-1996 diphtheria, tetanus toxoids and acellular pertussis vaccine Jessica Older [employer]IC.SEATING CAPTAIN Work Phone: [facility] 11-22-1996 haemophilus influenz ae type b vaccine, PRP-T conjugate Jessica Older [employer].SEATING CAPTAIN Work Phone: [facility] 08-02-1996 measles, mumps and rubella virus vaccine Jessica Older [employer]IC.SEATING CAPTAIN Work Phone: [facility] 01-27-1996 diphtheria, tetanus toxoids and acellular pertussis vaccine Jessica Older [employer] CR[employer]IC.SEATING CAPTAIN Work Phone: [facility] 01-27-1996 haemophilus influenz ae type b vaccine, PRP-T conjugate Jessica Older [employer] CR[employer]IC.SEATING CAPTAIN Work Phone: [facility] 01-27-1996 hepatitis B vaccine, pediatric or pediatric/adolescent dosage Jessica Older [employer]IC.SEATING CAPTAIN Work Phone: [facility] 01-27-1996 trivalent poliovirus vaccine, live, oral Jessica Older [employer]IC.SEATING CAPTAIN Work Phone: [facility] 1995 diphtheria, tetanus toxoids and acellular pertussis vaccine Jessica Older [employer]ION PI[employer]URE CRITIC.SEATING CAPTAIN Work Phone: [facility] 1995 haemophilus influenz ae type b vaccine, PRP-T conjugate Jessica Older [employer]ION PI[employer]URE CRITIC.SEATING CAPTAIN Work Phone: [facility] 1995 trivalent poliovirus vaccine, live, oral Jessica Older [employer] PI[employer]URE CRITIC.SEATING CAPTAIN Work Phone: [facility] 1995 diphtheria, tetanus toxoids and acellular pertussis vaccine Jessica Older [employer]ION PI[employer]URE CRITIC.SEATING CAPTAIN Work Phone: [facility] 1995 haemophilus influenz ae type b vaccine, PRP-T conjugate Jessica Older [employer]ION PI[employer]URE CRITIC.SEATING CAPTAIN Work Phone: [facility] 1995 trivalent poliovirus vaccine, live, oral Jessica Older [employer] CR[employer]IC.SEATING CAPTAIN Work Phone: [facility] 1995 hepatitis B vaccine, pediatric or pediatric/adolescent dosage Jessica Older [employer]IC.SEATING CAPTAIN Work Phone: [facility] 1995 hepatitis B vaccine, pediatric or pediatric/adolescent dosage Jessica Older [employer]IC.SEATING CAPTAIN Work Phone: [facility] Payers Date Payer Category Payer Medicaid [id number] 2021 Medicaid [id number] 2021 Medicaid UHC MEDICAID UHC [employer] MEDICAID [id number] 2021-Present [phone] [address] [place] [address] Medicaid [id number] 2021 Medicaid [id number] 1995 Unknown [id number] 1995 Unknown [id number] 1995 Unknown [id number] [id number]. 1995 Unknown [id number] [id number]. 1995 Unknown [id number] [id number]. 1995 Unknown [id number] [id number]. 1995 Unknown [id number] [id number]. 1995 Unknown [id number] [id number]. 1995 Unknown [id number] [id number]. 1995 Unknown [id number] [id number]. 1995 Unknown [id number] [id number]. 1995 Unknown [id number] [id number]. 1995 Unknown [id number] [id number]. 1995 Unknown [id number] [id number] Unknown [id number] Social History Date Type Detail Facility Start: 05-01-2015 Tobacco smoking status NHIS Ex-smoker [facility] Work Phone: Start: 05-01-2015 End: 11-05-2022 Tobacco use and exposure Smokeless tobacco non-user [facility] Work Phone: Start: 05-24-2021 End: 06-27-2021 Alcohol intake Current non-drinker of alcohol (finding) [facility] Start: 10-30-2020 End: 11-08-2021 History SDOH Alcohol Frequency 1 [facility] Start: 10-30-2020 History SDOH Alcohol Std Drinks 98 [facility] Start: 10-30-2020 End: 11-08-2021 History SDOH Social Connections Phone 3 [facility] Start: 10-30-2020 End: 11-08-2021 History SDOH Social Connections Get Together 2 [facility] Start: 10-30-2020 History SDOH Social Connections Living 8 [facility] Start: 10-30-2020 History SDOH Physical Activity MPS 15 [facility] Start: 10-30-2020 Education 12 [facility] Start: 1995 Sex Assigned At Female [facility] Start: 05-14-2021 End: 05-24-2021 Exposure to SARS-CoV-2 (event) Unable to assess [facility] History of tobacco use Current smoker [facility] Work Phone: Start: 12-10-2021 End: 11-05-2022 Tobacco smoking status COIS Never smoked tobacco [facility] Start: 11-08-2021 History SDOH Alcohol Std Drinks 0 [facility] Start: 11-08-2021 History SDOH Social Connections Phone 4 [facility] Start: 11-08-2021 History SDOH Social Connections Living 7 [facility] Start: 11-08-2021 History SDOH Financial 5 [facility] Start: 1995 Sex Assigned At Not on file [facility] Start: 11-30-2021 End: 07-29-2022 Exposure to SARS-CoV-2 (event) Not sure [facility] Start: 01-30-2022 End: 03-31-2023 Alcohol intake Lifetime non-drinker (finding) [facility] Start: 11-08-2021 End: 03-24-2023 History of Social function [facility] Start: 11-08-2021 End: 03-24-2023 Humiliation, Afraid, Rape, and Kick questionnaire [HARK] [facility] Within the last year , have you been afraid of your partner or ex-partner? No [facility] Do you belong to any clubs or organizations such as jain groups, unions, fraternal or athletic groups, or school groups? Yes [facility] Are you now , , , , never or living with a partner? Never [facility] How often to you hav e a drink containing alcohol? Never [facility] How many standard dr inks containing alcohol do you have on a typical day? Patient does not drink [facility] Do you feel stress - tense, restless, nervous, or anxious, or unable to sleep at night because your mind is troubled all the time - these days [OSQ] Only a little [facility] (I/We) worried wheth er (my/our) food would run out before (I/we) got money to buy more. Never true [facility] Start: 10-09-2021 Gender identity Identifies as female gender (finding) [facility] History of tobacco use Passive smoker [facility] Clinical Notes 09-12-2015 to 03-31-2023 Augusto Saunders MD - 03/31/2023 1:47 PM Augusto Holt MD - 03/31/2023 1:47 PM Augusto Holt MD - 03/24/2023 9:52 AM ESTPatient InstructionsAttachments Note Date & Type Note Facility 03-31-2023 History of Presen t illness Narrative Subjective Patient is here for the follow-up of her left shoulder pain. Patient ID: Fabiana Jerry is a 27 y.o. female. HPI 27 y.o. female has history of chronic knee joint pain, depression anxiety, restless leg syndrome, GERD. Patient was seen on March 24, 2023 for left shoulder pain. She was started on Tylenol and she was also told to take ibuprofen if the pain Tylenol do not help. She had an x-ray of the left shoulder in July 2022 which was normal. Patient was asked to do the exercises left shoulder. She states her pain has completely resolved and she does not have to take any pain medication. She wants to go back to work. She needs a letter to resume work. Review of Systems Constitutional: Negative for chills and fever. HENT: Negative for congestion, ear pain, rhinorrhea and sore throat. Respiratory: Negative for cough and shortness of breath. Cardiovascular: Negative for chest pain, palpitations and leg swelling. Gastrointestinal: Negative for abdominal distention, abdominal pain, blood in stool, constipation, diarrhea, nausea and vomiting. Endocrine: Negative for cold intolerance, heat intolerance, polydipsia, polyphagia and polyuria. Genitourinary: Negative for decreased urine volume, dysuria, enuresis and frequency. Musculoskeletal: Negative for back pain, joint swelling and myalgias. Neurological: Negative for dizziness, weakness, numbness and headaches. Hematological: Negative for adenopathy. Does not bruise/bleed easily. Objective BP 124/85 Pulse 60 Temp 97.6 F (36.4 C) (Temporal) Wt 88.1 kg (194 lb 3.2 oz) SpO2 98% BMI 35.52 kg/m Physical Exam Vitals and nursing note reviewed. Constitutional: General: She is not in acute distress. Appearance: She is well-developed. She is obese. She is not diaphoretic. HENT: Head: Normocephalic and atraumatic. Mouth/Throat: Pharynx: No oropharyngeal exudate. Eyes: General: No scleral icterus. Right eye: No discharge. Left eye: No discharge. Conjunctiva/sclera: Conjunctivae normal. Pupils: Pupils are equal, round, and reactive to light. Neck: Thyroid: No thyromegaly. Vascular: No JVD. Cardiovascular: Rate and Rhythm: Normal rate and regular rhythm. Heart sounds: Normal heart sounds. Pulmonary: Effort: Pulmonary effort is normal. No respiratory distress. Breath sounds: Normal breath sounds. No wheezing or rales. Chest: Chest wall: No tenderness. Abdominal: General: Bowel sounds are normal. There is no distension. Palpations: Abdomen is soft. Tenderness: There is no abdominal tenderness. Musculoskeletal: General: No tenderness. Cervical back: Normal range of motion and neck supple. Lymphadenopathy: Cervical: No cervical adenopathy. Skin: General: Skin is warm and dry. Neurological: Mental Status: She is alert and oriented to person, place, and time. Deep Tendon Reflexes: Reflexes normal. Active Home Medications Medication Sig Take Last Dose On Take Morning of Surgery Comment(s) busPIRone (BUSPAR) 5 MG tablet Take 1 (one) tablet (5 mg total) by mouth 2 (two) times a day . escitalopram oxalate (LEXAPRO) 10 MG tablet Take 1 (one) tablet (10 mg total) by mouth daily . omeprazole (PRILOSEC) 20 MG capsule TAKE 1 CAPSULE BY MOUTH IN THE MORNING 1/2 HOUR BEFORE BREAKFAST pramipexole (MIRAPEX) 0.125 MG tablet Take one tablet in afternoon daily and 2 tablet at bedtime. . Assessment/Plan: Diagnoses and all orders for this visit: Acute pain of left shoulder Resolved. Left rib to resume work is written. Will see her back in 3 to 4 months for her regular follow-up. 01/30/2022 12:14 PM 03/24/2023 10:09 AM Depression Screening Little interest or pleasure in doing things 0 1 Feeling down, depressed, or hopeless 1 1 PHQ-2 Total Score 1 2 Trouble falling or staying asleep, or sleeping too much 3 1 Feeling tired or having little energy 3 1 Poor appetite or overeating 3 1 Feeling bad about yourself - or that you are a failure or have let yourself or your family down 0 1 Trouble concentrating on things, such as reading the newspaper or watching television 0 0 Moving or speaking so slowly that other people could have noticed. Or the opposite - being so fidgety or restless that you have been moving around a lot more than usual 0 1 Thoughts that you would be better off , or of hurting yourself in some way 0 0 PHQ-9 Total Score 10 7 If you checked off any problems, how difficult have these problems made it for you to do your work, take care of things at home, or get along with other people? Not difficult at all Somewhat difficult documented in this encounter [facility] 03-24-2023 History of Presen t illness Narrative Subjective Patient is here with the complaint of having left shoulder pain for the last 3 days. Also needs a refill of Mirapex for her restless leg syndrome. Patient ID: Fabiana Jerry is a 27 y.o. female. HPI 27 y.o. female has history of chronic knee joint pain, depression anxiety, restless leg syndrome, GERD. 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 She also was putting new furniture at home. She started having pain in the left shoulder which is sharp in nature and constant. It is starting from the left shoulder blade and radiating to the left shoulder area and the left arm down to the elbow. The pain is about 7 out of 10 intensity. She has been taking Tylenol and ibuprofen which is helping her. She did have some tingling sensation in the left hand. 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 For her restless leg syndrome she is on Mirapex needs refills. For GERD she takes Prilosec 20 mg daily. Review of Systems Constitutional: Negative for chills and fever. HENT: Negative for congestion, ear pain, rhinorrhea and sore throat. Respiratory: Negative for cough and shortness of breath. Cardiovascular: Negative for chest pain, palpitations and leg swelling. Gastrointestinal: Negative for abdominal distention, abdominal pain, blood in stool, constipation, diarrhea, nausea and vomiting. Endocrine: Negative for cold intolerance, heat intolerance, polydipsia, polyphagia and polyuria. Genitourinary: Negative for decreased urine volume, dysuria, enuresis and frequency. Musculoskeletal: Negative for back pain, joint swelling and myalgias. Left shoulder pain. Neurological: Negative for dizziness, weakness, numbness and headaches. Hematological: Negative for adenopathy. Does not bruise/bleed easily. Objective BP 115/80 Pulse 77 Temp 98.1 F (36.7 C) Ht 5' 2 Wt 94.3 kg (208 lb) SpO2 98% BMI 38.04 kg/m Physical Exam Vitals and nursing note reviewed. Constitutional: General: She is not in acute distress. Appearance: She is well-developed. She is not diaphoretic. HENT: Head: Normocephalic and atraumatic. Mouth/Throat: Pharynx: No oropharyngeal exudate. Eyes: General: No scleral icterus. Right eye: No discharge. Left eye: No discharge. Conjunctiva/sclera: Conjunctivae normal. Pupils: Pupils are equal, round, and reactive to light. Neck: Thyroid: No thyromegaly. Vascular: No JVD. Cardiovascular: Rate and Rhythm: Normal rate and regular rhythm. Heart sounds: Normal heart sounds. Pulmonary: Effort: Pulmonary effort is normal. No respiratory distress. Breath sounds: Normal breath sounds. No wheezing or rales. Chest: Chest wall: No tenderness. Abdominal: General: Bowel sounds are normal. There is no distension. Palpations: Abdomen is soft. Tenderness: There is no abdominal tenderness. Musculoskeletal: General: No tenderness. Cervical back: Normal range of motion and neck supple. Comments: There is mild tenderness in the left scapular area., Mild tenderness in the left shoulder joint. Range of motion is restricted in abduction because of the pain. Bulk tone power reflexes in the left arm and hand is normal. Lymphadenopathy: Cervical: No cervical adenopathy. Skin: General: Skin is warm and dry. Neurological: Mental Status: She is alert and oriented to person, place, and time. Active Home Medications Medication Sig Take Last Dose On Take Morning of Surgery Comment(s) busPIRone (BUSPAR) 5 MG tablet Take 1 (one) tablet (5 mg total) by mouth 2 (two) times a day . escitalopram oxalate (LEXAPRO) 10 MG tablet Take 1 (one) tablet (10 mg total) by mouth daily . omeprazole (PRILOSEC) 20 MG capsule TAKE 1 CAPSULE BY MOUTH IN THE MORNING 1/2 HOUR BEFORE BREAKFAST pramipexole (MIRAPEX) 0.125 MG tablet Take one tablet in afternoon daily and 2 tablet at bedtime. . Assessment/Plan: Diagnoses and all orders for this visit: Acute pain of left shoulder Restless leg syndrome - pramipexole (MIRAPEX) 0.125 MG tablet; Take one tablet in afternoon daily and 2 tablet at bedtime. . Patient is asked to continue taking Tylenol 500 mg 1 to 2 tablet every 6 hours as needed if that does not help she can take ibuprofen 400 mg 1 to 2 tablets 3 times a day with meals. She is told to do the exercise of the left shoulder and left shoulder blade. To apply heating pad to the left shoulder. Medication refilled. Will see her back in 4 months or earlier as needed. Over the last 2 weeks, how often have you been bothered by any of the following problems? Little interest or pleasure in doing things: Several days Feeling down, depressed, or hopeless: Several days PHQ-2 Total Score: 2 Trouble falling or staying asleep, or sleeping too much: Several days Feeling tired or having little energy: Several days Poor appetite or overeating: Several days Feeling bad about yourself - or that you are a failure or have let yourself or your family down: Several days Trouble concentrating on things, such as reading the newspaper or watching television: Not at all Moving or speaking so slowly that other people could have noticed. Or the opposite - being so fidgety or restless that you have been moving around a lot more than usual: Several days Thoughts that you would be better off , or of hurting yourself in some way: Not at all PHQ-9 Total Score: 7 If you checked off any problems, how difficult have these problems made it for you to do your work, take care of things at home, or get along with other people?: Somewhat difficult 01/30/2022 12:14 PM 03/24/2023 10:09 AM Depression Screening Little interest or pleasure in doing things 0 1 Feeling down, depressed, or hopeless 1 1 PHQ-2 Total Score 1 2 Trouble falling or staying asleep, or sleeping too much 3 1 Feeling tired or having little energy 3 1 Poor appetite or overeating 3 1 Feeling bad about yourself - or that you are a failure or have let yourself or your family down 0 1 Trouble concentrating on things, such as reading the newspaper or watching television 0 0 Moving or speaking so slowly that other people could have noticed. Or the opposite - being so fidgety or restless that you have been moving around a lot more than usual 0 1 Thoughts that you would be better off , or of hurting yourself in some way 0 0 PHQ-9 Total Score 10 7 If you checked off any problems, how difficult have these problems made it for you to do your work, take care of things at home, or get along with other people? Not difficult at all Somewhat difficult documented in this encounter [facility] 03-05-2023 Instructions Paula Ortez PA-C - 03/05/2023 5:43 PM EST Take the antibiotic as instructed with food. Consider the addition of an antihistamine, such as Claritin or Zyrtec, and Flonase nasal spray for symptom relief. Ibuprofen or Tylenol as needed. Follow-up with your primary care provider as needed if your symptoms persist over the next 1 to 2 weeks without improvement. If symptoms acutely worsen or you develop additional symptoms, such as fever that does not resolve with fever reducing medications, severe pain or swelling, trouble swallowing or breathing, chest pain, or coughing up red sputum, then go directly to the emergency room. documented in this encounter [facility] 03-05-2023 History of Presen t illness Narrative Images from the original note were not included. Patient Name: [facility] Location: [address], [address] [place] [id number] Date Of : Date Of Visit: 1995 03/05/2023 MRN# Provider: [id number] Paula Ortez PA-C Chief Complaint Patient presents with URI Sinus congestion, drainage, headache x7-10 days. Taking advil cold and sinus without relief. Assessment & Plan 1. Rhinosinusitis amoxicillin-clavulanate (Augmentin) 875-125 mg per tablet No follow-ups on file. This office note has been dictated. This dictation was generated using [employer] voice recognition software. Please excuse any grammatical or spelling errors that may have occurred using the system. Medical Decision Making Patient presents with sinus symptoms for over a week. I have considered allergic, viral, and bacterial origins. Differentials include but not limited to URI, rhinosinusitis, bronchitis, and pneumonia. Patient tested negative for COVID earlier today. Denies concerns for influenza testing. VSS and patient does not appear to be in acute distress at this time. No red flag signs or symptoms on physical exam. I suggest likely rhinosinusitis. Due to duration of symptoms, patient started on Augmentin and patient education on symptomatic treatment given. Follow up with PCP as needed. Emergency room if symptoms acutely worsen or patient develops additional symptoms. The patient verbalized an understanding and agreement with this plan. Patient discharged in stable condition. Additional Clinical Comments Discussed over the counter and/or prescribed medications for symptomatic management, side effects of medications, and possible drug interactions. Recommended to stop medications if they develop any signs of an adverse or allergic reaction. Recommended that they should make an appointment and follow-up with their PCP or return to urgent care if their symptoms persist over the next 1-2 weeks or sooner if needed. Educated patient and/or guardian about signs and symptoms that would warrant further immediate evaluation. Recommended that they should go to the emergency department if their symptoms become acutely worse. An After Visit Summary was printed and given to the patient. Subjective 27 y.o. female presents with URI (Sinus congestion, drainage, headache x7-10 days. Taking advil cold and sinus without relief. ) The patient is a 27-year-old female presents urgent care today due to sinus symptoms for over 1 week. Patient admits to sinus pressure and pain, nasal congestion, rhinorrhea, headache, fever and chills. Patient states that she had a temperature of 101F last night that resolved with Tylenol. Patient recently tested negative for COVID earlier today. Denies concerns for influenza. Has tried taking cold and flu medications with minimal relief. Denies known nausea, vomiting, trouble swallowing or breathing, chest pain or abdominal pain. URI Associated symptoms include congestion, rhinorrhea and sinus pain. Pertinent negatives include no abdominal pain, chest pain, nausea, rash or vomiting. Review Of Systems Review of Systems Constitutional: Positive for chills and fever. HENT: Positive for congestion, rhinorrhea, sinus pressure and sinus pain. Negative for trouble swallowing. Respiratory: Negative for shortness of breath. Cardiovascular: Negative for chest pain. Gastrointestinal: Negative for abdominal pain, nausea and vomiting. Skin: Negative for rash. Medical History Past Medical History: Diagnosis Date Anxiety Depression GERD (gastroesophageal reflux disease) Migraine Restless leg Past Surgical History: Procedure Laterality Date SALPINGECTOMY OPEN BILATERAL Patient Active Problem List Diagnosis Restless leg syndrome Anxiety and depression Chronic pain of right knee Social History Social History Tobacco Use Smoking status: Never Passive exposure: Current Smokeless tobacco: Never Vaping Use Vaping Use: Never used Substance Use Topics Alcohol use: Never Drug use: Never Family History Family History Problem Relation Age of Onset Depression Mother Cancer Mother Hypertension Father Arthritis Maternal Grandmother Asthma Maternal Grandmother Objective Physical Exam BP 123/84 Pulse 71 Temp 98.3 F (36.8 C) Resp 16 Wt 86.6 kg (191 lb) SpO2 98% BMI 34.93 kg/m Vision/Hearing Exam:No results found. Physical Exam Vitals and nursing note reviewed. Constitutional: General: She is not in acute distress. Appearance: She is not toxic-appearing. HENT: Head: Jaw: There is normal jaw occlusion. No trismus or swelling. Right Ear: Tympanic membrane, ear canal and external ear normal. Left Ear: Tympanic membrane, ear canal and external ear normal. Nose: Congestion present. Right Turbinates: Enlarged. Left Turbinates: Enlarged. Right Sinus: Maxillary sinus tenderness present. Left Sinus: Maxillary sinus tenderness present. Mouth/Throat: Mouth: Mucous membranes are moist. Pharynx: Oropharynx is clear. Uvula midline. No pharyngeal swelling, oropharyngeal exudate or posterior oropharyngeal erythema. Cardiovascular: Rate and Rhythm: Normal rate. Pulmonary: Effort: Pulmonary effort is normal. No respiratory distress. Breath sounds: Normal breath sounds. No wheezing or rhonchi. Lymphadenopathy: Cervical: No cervical adenopathy. Skin: General: Skin is warm and dry. Neurological: Mental Status: She is alert. Psychiatric: Mood and Affect: Mood normal. Thought Content: Thought content normal. Procedure Notes Procedures Results No results found for this or any previous visit (from the past 168 hour(s)). No orders to display Orders Placed This Visit No orders of the defined types were placed in this encounter. Medication List At End Of Visit Current Outpatient Medications Medication Sig Dispense Refill busPIRone (BUSPAR) 5 MG tablet Take 1 (one) tablet (5 mg total) by mouth 2 (two) times a day . escitalopram oxalate (LEXAPRO) 10 MG tablet Take 1 (one) tablet (10 mg total) by mouth daily . omeprazole (PRILOSEC) 20 MG capsule TAKE 1 CAPSULE BY MOUTH IN THE MORNING 1/2 HOUR BEFORE BREAKFAST pramipexole (MIRAPEX) 0.125 MG tablet Take one tablet in afternoon daily and 2 tablet at bedtime. . 90 tablet 0 albuterol 90 mcg/actuation inhaler Inhale 2 (two) puffs every 6 (six) hours as needed for wheezing . (Patient not taking: Reported on 11/05/2022 .) 6.7 g 0 amoxicillin-clavulanate (Augmentin) 875-125 mg per tablet Take 1 (one) tablet by mouth 2 (two) times a day for 7 days . 14 tablet 0 benzonatate (Tessalon Perles) 100 MG capsule Take 1 (one) capsule (100 mg total) by mouth 3 (three) times a day as needed for cough . 30 capsule 1 diclofenac sodium (VOLTAREN) 75 MG EC tablet Take 1 (one) tablet (75 mg total) by mouth 2 (two) times a day with meals . (Patient not taking: Reported on 03/05/2023 .) 60 tablet 11 ondansetron (ZOFRAN-ODT) 4 MG disintegrating tablet Dissolve 1 (one) tablet (4 mg total) on top of tongue every 8 (eight) hours as needed for nausea . (Patient not taking: Reported on 03/05/2023 .) 20 tablet 0 No current facility-administered medications for this visit. Patient Instructions Take the antibiotic as instructed with food. Consider the addition of an antihistamine, such as Claritin or Zyrtec, and Flonase nasal spray for symptom relief. Ibuprofen or Tylenol as needed. Follow-up with your primary care provider as needed if your symptoms persist over the next 1 to 2 weeks without improvement. If symptoms acutely worsen or you develop additional symptoms, such as fever that does not resolve with fever reducing medications, severe pain or swelling, trouble swallowing or breathing, chest pain, or coughing up red sputum, then go directly to the emergency room. documented in this encounter [facility] 02-09-2023 Instructions Yudelka Blanchard PA-C - 02/09/2023 11:17 AM EST If medications were prescribed, take as directed. Take amoxicillin twice a day for 10 days. Take CAPMISt twice a day for 5 days. Follow up with your Primary Care Provider for all symptoms. If your symptoms worsen or you develop severe pain or distress, go to the ER. documented in this encounter [facility] 02-09-2023 History of Presen t illness Narrative Images from the original note were not included. Patient Name: [facility] Location: [facility] [address] [place] [address], [address] [place] [address] Date Of : Date Of Visit: 1995 02/09/2023 MRN# Provider: [id number] Yudelka Blanchard PA-C Chief Complaint Patient presents with URI Chills, body aches, headache, fever > 102 started this morning, vomiting, sore throat x 3 to 4 days, has had strep & RSV exposure Assessment & Plan 1. Strep throat amoxicillin (AMOXIL) 500 MG capsule 2. Sore throat POC Strep A - Molecular 3. Congestion of nasal sinus [id number] (Capmist DM) 60-15-400 mg Tab No follow-ups on file. Medical Decision Making Symptoms and physical exam consistent with Strep Throat. Strep Test positive. Sent script for amoxicillin and CAPMIST. Discussed proper use of medications. Discussed course of illness. Discussed follow up of continuing symptoms with Primary Care Provider. Discussed going to ER if symptoms become severe. Patient declined testing (COVID,Flu). Patient agreed with plan. Patient denies any additional questions or concerns at this time. Considered strep throat, viral pharyngitis, GERD, esophagitis, allergic rhinitis, viral URI, influenza, and COVID. Patient has no known COVID positive exposure. Subjective 27 y.o. female presents with URI (Chills, body aches, headache, fever > 102 started this morning, vomiting, sore throat x 3 to 4 days, has had strep & RSV exposure) 27 yo female patient presents with fever, sore throat, body aches, cough and congestion for 2 days. Patient reports coughing up phlegm. She has been taking ibuprofen.She denies nausea, shortness of breath and trouble swallowing. Review Of Systems Review of Systems Constitutional: Positive for fever. Negative for chills. HENT: Positive for congestion, rhinorrhea and sore throat. Negative for ear pain and trouble swallowing. Respiratory: Positive for cough. Negative for shortness of breath. Gastrointestinal: Negative for abdominal distention, abdominal pain, diarrhea, nausea and vomiting. Medical History Past Medical History: Diagnosis Date Anxiety Depression GERD (gastroesophageal reflux disease) Migraine Restless leg Past Surgical History: Procedure Laterality Date SALPINGECTOMY OPEN BILATERAL Patient Active Problem List Diagnosis Restless leg syndrome Anxiety and depression Chronic pain of right knee Social History Social History Tobacco Use Smoking status: Never Passive exposure: Current Smokeless tobacco: Never Vaping Use Vaping Use: Never used Substance Use Topics Alcohol use: Never Drug use: Never Family History Family History Problem Relation Age of Onset Depression Mother Cancer Mother Hypertension Father Arthritis Maternal Grandmother Asthma Maternal Grandmother Objective Physical Exam BP 104/72 Pulse (!) 105 Temp 99.9 F (37.7 C) (Tympanic) Resp 18 Wt 85.3 kg (188 lb) SpO2 95% BMI 34.39 kg/m Vision/Hearing Exam:No results found. Physical Exam Vitals and nursing note reviewed. Constitutional: General: She is not in acute distress. Appearance: Normal appearance. She is well-developed. She is not ill-appearing, toxic-appearing or diaphoretic. HENT: Head: Normocephalic and atraumatic. Nose: Congestion and rhinorrhea present. Mouth/Throat: Mouth: Mucous membranes are not pale and not dry. Pharynx: Uvula midline. Posterior oropharyngeal erythema present. No oropharyngeal exudate. Cardiovascular: Rate and Rhythm: Normal rate and regular rhythm. Heart sounds: Normal heart sounds. Pulmonary: Effort: Pulmonary effort is normal. Breath sounds: Normal breath sounds. Lymphadenopathy: Cervical: No cervical adenopathy. Neurological: Mental Status: She is alert. Procedure Notes Procedures Results Recent Results (from the past 168 hour(s)) POC Strep A - Molecular Collection Time: 02/09/23 11:11 AM Result Value Ref Range Strep A Screen Positive (A) Negative No orders to display Orders Placed This Visit Orders Placed This Encounter Procedures POC Strep A - Molecular Medication List At End Of Visit Current Outpatient Medications Medication Sig Dispense Refill busPIRone (BUSPAR) 5 MG tablet Take 1 (one) tablet (5 mg total) by mouth 2 (two) times a day . diclofenac sodium (VOLTAREN) 75 MG EC tablet Take 1 (one) tablet (75 mg total) by mouth 2 (two) times a day with meals . 60 tablet 11 escitalopram oxalate (LEXAPRO) 10 MG tablet Take 1 (one) tablet (10 mg total) by mouth daily . omeprazole (PRILOSEC) 20 MG capsule TAKE 1 CAPSULE BY MOUTH IN THE MORNING 1/2 HOUR BEFORE BREAKFAST pramipexole (MIRAPEX) 0.125 MG tablet Take one tablet in afternoon daily and 2 tablet at bedtime. . 90 tablet 0 albuterol 90 mcg/actuation inhaler Inhale 2 (two) puffs every 6 (six) hours as needed for wheezing . (Patient not taking: Reported on 11/05/2022 .) 6.7 g 0 amoxicillin (AMOXIL) 500 MG capsule Take 1 (one) capsule (500 mg total) by mouth 2 (two) times a day for 10 days . 20 capsule 0 benzonatate (Tessalon Perles) 100 MG capsule Take 1 (one) capsule (100 mg total) by mouth 3 (three) times a day as needed for cough . 30 capsule 1 ondansetron (ZOFRAN-ODT) 4 MG disintegrating tablet Dissolve 1 (one) tablet (4 mg total) on top of tongue every 8 (eight) hours as needed for nausea . 20 tablet 0 [id number]-[id number] (Capmist DM) 60-15-400 mg Tab Take 1 (one) tablet by mouth 2 (two) times a day for 5 days . 10 tablet 0 No current facility-administered medications for this visit. Patient Instructions If medications were prescribed, take as directed. Take amoxicillin twice a day for 10 days. Take CAPMISt twice a day for 5 days. Follow up with your Primary Care Provider for all symptoms. If your symptoms worsen or you develop severe pain or distress, go to the ER. documented in this encounter [facility] 01-05-2023 Instructions Montse Bernal CNP - 01/05/2023 1:26 PM EDT You may take over the counter pain relief medication as directed on package insert. This could include alternating between Acetaminophen (Tylenol) and Ibuprofen (Motrin). Be sure to avoid doubling NSAIDS such as Ibuprofen, Aleve, and Aspirin. You may drink tea with lemon and honey, gargle with warm salt water, increase fluids and rest to help with symptom management. If symptoms worsen you should seek evaluation at the ED. Please follow up with primary care provider in one week. documented in this encounter [facility] 01-05-2023 History of Presen t illness Narrative Images from the original note were not included. Patient Name: [facility] Location: [facility] [address] [place] [address], [address] [place] [id number] Date Of : Date Of Visit: 1995 01/05/2023 MRN# Provider: [id number] Montse Bernal CNP Chief Complaint Patient presents with Illness Light headness, cough, chills, altered taste. Onset x 1 week. Assessment & Plan 1. Upper respiratory tract infection, unspecified type 2. Encounter for laboratory testing for COVID-19 virus COVID-19, Molecular No follow-ups on file. Medical Decision Making Considered COVID, strep throat, URI, allergic rhinitis,influenza, pneumonia, pharyngitis, bronchitis. Pt presents with cough, chills and ageusia. 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 Pt received COVID test in clinic today with a negative result. Pt encouraged to continue antibiotics prescribed four days ago for sinus infection and take otc ibuprofen and acetaminophen as directed to help with symptom management. Pt advised to increase fluids and rest. The patient was advised to seek evaluation in the emergency department should symptoms acutely worsen. The patient was advised to follow up with their primary care provider within 7-14 days should symptoms fail to improve. Discussed plan of care with patient. Patient is agreeable to plan of care. Patient denies any additional questions or concerns at this time. Additional Clinical Comments Subjective 27 y.o. female presents with Illness (Light headness, cough, chills, altered taste. Onset x 1 week.) Pleasant 27 yo female presents to with c/o ageusia, cough and chills for a week. 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 Pt requesting a COVID test in clinic today. Illness The current episode started in the past 7 days. The problem has been gradually worsening since onset. The pain is mild. Associated symptoms include congestion, headaches, rhinorrhea, fatigue, chest pain (with cough), coughing and nausea. Pertinent negatives include no ear pain, eye itching, eye pain, eye redness, photophobia, sore throat, stridor, fever, shortness of breath, wheezing, constipation, diarrhea, vomiting or rash. Past treatments include one or more OTC medications and one or more prescription drugs. Review Of Systems Review of Systems Constitutional: Positive for appetite change, chills and fatigue. Negative for activity change, diaphoresis, fever and unexpected weight change. HENT: Positive for congestion, rhinorrhea, sinus pressure and sinus pain. Negative for ear pain, sneezing, sore throat, trouble swallowing and voice change. Eyes: Negative for photophobia, pain, redness and itching. Respiratory: Positive for cough. Negative for choking, chest tightness, shortness of breath, wheezing and stridor. Cardiovascular: Positive for chest pain (with cough). Negative for palpitations. Gastrointestinal: Positive for nausea. Negative for constipation, diarrhea and vomiting. Skin: Negative for rash. Neurological: Positive for headaches. Medical History Past Medical History: Diagnosis Date Anxiety Depression GERD (gastroesophageal reflux disease) Migraine Restless leg Past Surgical History: Procedure Laterality Date SALPINGECTOMY OPEN BILATERAL Patient Active Problem List Diagnosis Restless leg syndrome Anxiety and depression Chronic pain of right knee Social History Social History Tobacco Use Smoking status: Never Passive exposure: Current Smokeless tobacco: Never Vaping Use Vaping Use: Never used Substance Use Topics Alcohol use: Never Drug use: Never Family History Family History Problem Relation Age of Onset Depression Mother Cancer Mother Hypertension Father Arthritis Maternal Grandmother Asthma Maternal Grandmother Objective Physical Exam BP 117/78 (BP Location: Right arm, Patient Position: Sitting, BP Cuff Size: Adult) Pulse 64 Temp 98.3 F (36.8 C) (Tympanic) Resp 12 Ht 5' 2 Wt 85.3 kg (188 lb 1.6 oz) LMP 01/01/2023 SpO2 98% BMI 34.40 kg/m Vision/Hearing Exam:No results found. Physical Exam Vitals and nursing note reviewed. Constitutional: General: She is awake. She is not in acute distress. Appearance: Normal appearance. She is well-groomed and normal weight. She is not ill-appearing, toxic-appearing or diaphoretic. HENT: Right Ear: Hearing, tympanic membrane, ear canal and external ear normal. There is no impacted cerumen. Left Ear: Hearing, tympanic membrane, ear canal and external ear normal. There is no impacted cerumen. Nose: Congestion present. No rhinorrhea. Right Sinus: No maxillary sinus tenderness or frontal sinus tenderness. Left Sinus: No maxillary sinus tenderness or frontal sinus tenderness. Mouth/Throat: Lips: [place]. No lesions. Mouth: Mucous membranes are moist. No oral lesions. Dentition: No gum lesions. Tongue: No lesions. Palate: No lesions. Pharynx: Uvula midline. No pharyngeal swelling, oropharyngeal exudate, posterior oropharyngeal erythema or uvula swelling. Eyes: General: Right eye: No discharge. Left eye: No discharge. Cardiovascular: Rate and Rhythm: Normal rate. Pulses: Normal pulses. Pulmonary: Effort: Pulmonary effort is normal. No tachypnea, bradypnea, accessory muscle usage, prolonged expiration, respiratory distress or retractions. Breath sounds: Normal breath sounds. No stridor. No decreased breath sounds, wheezing, rhonchi or rales. Chest: Chest wall: No tenderness. Skin: General: Skin is warm and dry. Findings: No erythema or rash. Neurological: Mental Status: She is alert and oriented to person, place, and time. Psychiatric: Mood and Affect: Mood normal. Behavior: Behavior normal. Behavior is cooperative. Procedure Notes Procedures Results Recent Results (from the past 168 hour(s)) COVID-19, Molecular Collection Time: 01/01/23 2:45 PM Specimen: Nasopharyngeal; Swab Result Value Ref Range SARS-CoV-2 Not Detected Not Detected COVID-19, Molecular Collection Time: 01/05/23 1:12 PM Specimen: Nasopharyngeal; Swab Result Value Ref Range SARS-CoV-2 Not Detected Not Detected No orders to display Orders Placed This Visit Orders Placed This Encounter Procedures COVID-19, Molecular Medication List At End Of Visit Current Outpatient Medications Medication Sig Dispense Refill amoxicillin-clavulanate (Augmentin) 875-125 mg per tablet Take 1 (one) tablet by mouth 2 (two) times a day for 7 days . 14 tablet 0 busPIRone (BUSPAR) 5 MG tablet Take 1 (one) tablet (5 mg total) by mouth 2 (two) times a day . diclofenac sodium (VOLTAREN) 75 MG EC tablet Take 1 (one) tablet (75 mg total) by mouth 2 (two) times a day with meals . 60 tablet 11 escitalopram oxalate (LEXAPRO) 10 MG tablet Take 1 (one) tablet (10 mg total) by mouth daily . omeprazole (PRILOSEC) 20 MG capsule TAKE 1 CAPSULE BY MOUTH IN THE MORNING 1/2 HOUR BEFORE BREAKFAST pramipexole (MIRAPEX) 0.125 MG tablet Take one tablet in afternoon daily and 2 tablet at bedtime. . 90 tablet 0 albuterol 90 mcg/actuation inhaler Inhale 2 (two) puffs every 6 (six) hours as needed for wheezing . (Patient not taking: Reported on 11/05/2022 .) 6.7 g 0 benzonatate (Tessalon Perles) 100 MG capsule Take 1 (one) capsule (100 mg total) by mouth 3 (three) times a day as needed for cough . 30 capsule 1 ondansetron (ZOFRAN-ODT) 4 MG disintegrating tablet Dissolve 1 (one) tablet (4 mg total) on top of tongue every 8 (eight) hours as needed for nausea . 20 tablet 0 No current facility-administered medications for this visit. Patient Instructions You may take over the counter pain relief medication as directed on package insert. This could include alternating between Acetaminophen (Tylenol) and Ibuprofen (Motrin). Be sure to avoid doubling NSAIDS such as Ibuprofen, Aleve, and Aspirin. You may drink tea with lemon and honey, gargle with warm salt water, increase fluids and rest to help with symptom management. If symptoms worsen you should seek evaluation at the ED. Please follow up with primary care provider in one week. documented in this encounter [facility] 01-01-2023 Instructions Salinas Hughes PA-C - 01/01/2023 2:57 PM EDT As part of our provider protocol, we are notifying you about your test results. You tested negative for COVID-19. You were likely not infected at the time of the test. This does not mean that you will not get sick. It is possible that you were in the early phase of the infection at the time of your test and you could be positive later. A negative test does not rule out getting sick later. You should still minimize your exposure to others by isolating yourself until you have been fever-free for at least 72 hours (without the use of medicine that reduces your fevers) and other symptoms have improved. Please follow up with your primary care provider or urgent care as needed or go to the ED for severe illness. The following attachments cannot be sent through Care Everywhere.Sinusitis: Acute (Luxembourger)Sinus Rinse (Luxembourger)documented in this encounter [facility] 01-01-2023 History of Presen t illness Narrative Images from the original note were not included. Patient Name: [facility] Location: [address], [address] [facility] [id number] Date Of : Date Of Visit: 1995 01/01/2023 MRN# Provider: [id number] Salinas Hughes PA-C Chief Complaint Patient presents with URI Light headed intermittent x 1 week, last night headache, nausea, vomiting started last night, negative home COVID test Assessment & Plan 1. Sinusitis, unspecified chronicity, unspecified location amoxicillin-clavulanate (Augmentin) 875-125 mg per tablet 2. Upper respiratory tract infection, unspecified type 3. Suspected COVID-19 virus infection COVID-19, Molecular 4. Nausea ondansetron (ZOFRAN-ODT) 4 MG disintegrating tablet Return if symptoms worsen or fail to improve. Medical Decision Making COVID today was NEGATIVE. Patient's symptoms more consistent with sinusitis/URI. Patient given prescription for Augmentin in order to treat symptoms. Patient to continue with [id number] medicine as needed. Patient to follow-up closely with primary care return to clinic/ER symptoms fail to improve or worsen. Additional Clinical Comments Discussed over the counter medications for symptomatic management and side effects of medications. Recommended taking all medications with food and to stop medications if they develop any signs of an allergic reaction. Educated patient and/or guardian about signs and symptoms that would warrant further immediate evaluation. Recommended that they should return to urgent care, make an appointment with their family physician, or go to the emergency room if symptoms persist or get acutely worse. Recommended follow up within the next week with their PCP or to get established with a PCP soon in order to follow up appropriately. Subjective 27 y.o. female presents with URI (Light headed intermittent x 1 week, last night headache, nausea, vomiting started last night, negative home COVID test) 27-year-old female presents for evaluation of sinus congestion, headache nausea and vomiting this been ongoing for the past week. Patient states that she did take a home COVID test last night but it was negative. Patient presents for retesting. URI Associated symptoms include headaches, nausea and vomiting. Review Of Systems Review of Systems Constitutional: Positive for fatigue. Gastrointestinal: Positive for nausea and vomiting. Neurological: Positive for headaches. Medical History Past Medical History: Diagnosis Date Anxiety Depression GERD (gastroesophageal reflux disease) Migraine Restless leg Past Surgical History: Procedure Laterality Date SALPINGECTOMY OPEN BILATERAL Patient Active Problem List Diagnosis Restless leg syndrome Anxiety and depression Chronic pain of right knee Social History Social History Tobacco Use Smoking status: Never Passive exposure: Current Smokeless tobacco: Never Vaping Use Vaping Use: Never used Substance Use Topics Alcohol use: Never Drug use: Never Family History Family History Problem Relation Age of Onset Depression Mother Cancer Mother Hypertension Father Arthritis Maternal Grandmother Asthma Maternal Grandmother Objective Physical Exam BP 121/81 Pulse 91 Temp 98.5 F (36.9 C) (Tympanic) Resp 18 Wt 86.2 kg (190 lb) SpO2 96% BMI 34.75 kg/m Vision/Hearing Exam:No results found. Physical Exam Vitals and nursing note reviewed. Constitutional: General: She is not in acute distress. Appearance: Normal appearance. HENT: Right Ear: Tympanic membrane normal. Left Ear: Tympanic membrane normal. Pulmonary: Effort: No respiratory distress. Breath sounds: Normal breath sounds. No wheezing, rhonchi or rales. Musculoskeletal: General: Normal range of motion. Cervical back: Normal range of motion. Skin: General: Skin is warm and dry. Neurological: Mental Status: She is alert and oriented to person, place, and time. Procedure Notes Procedures Results Recent Results (from the past 168 hour(s)) COVID-19, Molecular Collection Time: 01/01/23 2:45 PM Specimen: Nasopharyngeal; Swab Result Value Ref Range SARS-CoV-2 Not Detected Not Detected No orders to display Orders Placed This Visit Orders Placed This Encounter Procedures COVID-19, Molecular Medication List At End Of Visit Current Outpatient Medications Medication Sig Dispense Refill busPIRone (BUSPAR) 5 MG tablet Take 1 (one) tablet (5 mg total) by mouth 2 (two) times a day . diclofenac sodium (VOLTAREN) 75 MG EC tablet Take 1 (one) tablet (75 mg total) by mouth 2 (two) times a day with meals . 60 tablet 11 escitalopram oxalate (LEXAPRO) 10 MG tablet Take 1 (one) tablet (10 mg total) by mouth daily . omeprazole (PRILOSEC) 20 MG capsule TAKE 1 CAPSULE BY MOUTH IN THE MORNING 1/2 HOUR BEFORE BREAKFAST pramipexole (MIRAPEX) 0.125 MG tablet Take one tablet in afternoon daily and 2 tablet at bedtime. . 90 tablet 0 albuterol 90 mcg/actuation inhaler Inhale 2 (two) puffs every 6 (six) hours as needed for wheezing . (Patient not taking: Reported on 11/05/2022 .) 6.7 g 0 amoxicillin-clavulanate (Augmentin) 875-125 mg per tablet Take 1 (one) tablet by mouth 2 (two) times a day for 7 days . 14 tablet 0 benzonatate (Tessalon Perles) 100 MG capsule Take 1 (one) capsule (100 mg total) by mouth 3 (three) times a day as needed for cough . 30 capsule 1 ondansetron (ZOFRAN-ODT) 4 MG disintegrating tablet Dissolve 1 (one) tablet (4 mg total) on top of tongue every 8 (eight) hours as needed for nausea . 20 tablet 0 No current facility-administered medications for this visit. Patient Instructions As part of our provider protocol, we are notifying you about your test results. You tested negative for COVID-19. You were likely not infected at the time of the test. This does not mean that you will not get sick. It is possible that you were in the early phase of the infection at the time of your test and you could be positive later. A negative test does not rule out getting sick later. You should still minimize your exposure to others by isolating yourself until you have been fever-free for at least 72 hours (without the use of medicine that reduces your fevers) and other symptoms have improved. Please follow up with your primary care provider or urgent care as needed or go to the ED for severe illness. documented in this encounter [facility] 12-26-2022 Telephone encounter Note Please ask patient how she is taking mirapex? [facility] 12-26-2022 Miscellaneous Notes Please ask patient how she is taking mirapex? documented in this encounter [facility] 11-05-2022 Instructions Trisha Coombs CNP - 11/05/2022 1:50 PM EDT Follow up with your Primary Care Physician if no improvement in 2-3 days for a recheck, sooner if symptoms worsen before then. The following attachments cannot be sent through Care Everywhere.Back: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 such as Ibuprofen, Aleve, and Aspirin. The following attachments cannot be sent through Care Everywhere.Otitis Media (Luxembourger)documented in this encounter [facility] 06-27-2022 History of Presen t illness Narrative Images from the original note were not included. Patient Name: [facility] Location: Fabiana Jerry [address] [place] [address], [address] [facility] [id number] Date Of : Date Of Visit: 1995 06/27/2022 MRN# Provider: [id number] Gail Marcos, ISI Chief Complaint Patient presents with Illness C/o cough, left ear pain onset x 1 week Assessment & Plan 1. Left otitis media, unspecified otitis media type amoxicillin (AMOXIL) 875 MG tablet 2. Upper respiratory tract infection, unspecified type benzonatate (TESSALON) 200 MG capsule No follow-ups on file. Medical Decision Making Considered strep throat, viral pharyngitis, bronchitis, pneumonia, sinusitis, allergic rhinitis, viral URI, influenza, and COVID. Patient has no known COVID or influenza positive exposure. The patient has evidence of a viral upper respiratory infection in addition to left otitis media today. The patient was treated with Tessalon Perles in addition to amoxicillin.The patient was advised to seek evaluation in the emergency department should symptoms acutely worsen. The patient was advised to follow up with their primary care provider within 7-14 days should symptoms fail to improve. Discussed plan of care with patient. Patient is agreeable to plan of care. Patient denies any additional questions or concerns at this time. Additional Clinical Comments Subjective 26 y.o. female presents with Illness (C/o cough, left ear pain onset x 1 week) Illness The current episode started in the past 7 days. The problem occurs constantly. The problem is unchanged. The pain is moderate. Nothing aggravates the symptoms. Associated symptoms include congestion, ear pain, a URI, fatigue and coughing. Pertinent negatives include no decreased vision, double vision, ear discharge, eye discharge, eye itching, eye pain, eye redness, headaches, hearing loss, mouth sores, photophobia, rhinorrhea, sore throat, stridor, swollen glands, fever, weight gain, weight loss, chest pain, shortness of breath, wheezing, abdominal pain, constipation, diarrhea, nausea, vomiting, diaper rash, joint pain, joint swelling, muscle aches, neck pain, neck stiffness or rash. Past treatments include one or more OTC medications. The treatment provided mild relief. Review Of Systems Review of Systems Constitutional: Positive for fatigue. Negative for chills, diaphoresis, fever, weight gain and weight loss. HENT: Positive for congestion and ear pain. Negative for drooling, ear discharge, hearing loss, mouth sores, postnasal drip, rhinorrhea, sinus pressure, sinus pain, sore throat and voice change. Eyes: Negative for double vision, photophobia, pain, discharge, redness, itching and visual disturbance. Respiratory: Positive for cough. Negative for chest tightness, shortness of breath, wheezing and stridor. Cardiovascular: Negative for chest pain, palpitations and leg swelling. Gastrointestinal: Negative for abdominal distention, abdominal pain, constipation, diarrhea, nausea and vomiting. Musculoskeletal: Negative for arthralgias, joint pain, joint swelling, myalgias and neck pain. Skin: Negative for rash. Neurological: Negative for dizziness, light-headedness and headaches. Psychiatric/Behavioral: Negative for confusion. Medical History Past Medical History: Diagnosis Date Anxiety Depression GERD (gastroesophageal reflux disease) Migraine Restless leg Past Surgical History: Procedure Laterality Date SALPINGECTOMY OPEN BILATERAL Patient Active Problem List Diagnosis Restless leg syndrome Anxiety and depression Chronic pain of right knee Social History Social History Tobacco Use Smoking status: Never Smokeless tobacco: Never Vaping Use Vaping status: Never Used Substance Use Topics Alcohol use: Never Drug use: Never Family History Family History Problem Relation Age of Onset Depression Mother Cancer Mother Hypertension Father Arthritis Maternal Grandmother Asthma Maternal Grandmother Objective Physical Exam BP 117/73 (BP Location: Left arm, Patient Position: Sitting, BP Cuff Size: Adult) Pulse 70 Temp 98.9 F (37.2 C) (Oral) Resp 16 Wt 84.3 kg (185 lb 14.4 oz) LMP 05/24/2022 SpO2 97% BMI 34.00 kg/m Vision/Hearing Exam:No results found. Physical Exam Vitals and nursing note reviewed. Constitutional: Appearance: Normal appearance. She is normal weight. HENT: Head: Normocephalic. Right Ear: Hearing, tympanic membrane, ear canal and external ear normal. Left Ear: Hearing, ear canal and external ear normal. Tympanic membrane is erythematous and bulging. Cardiovascular: Rate and Rhythm: Normal rate and regular rhythm. Heart sounds: Normal heart sounds. Pulmonary: Effort: Pulmonary effort is normal. Breath sounds: Normal breath sounds. Abdominal: General: Bowel sounds are normal. Palpations: Abdomen is soft. Musculoskeletal: General: Normal range of motion. Cervical back: Normal range of motion. Skin: General: Skin is warm and dry. Capillary Refill: Capillary refill takes less than 2 seconds. Neurological: General: No focal deficit present. Mental Status: She is alert and oriented to person, place, and time. Mental status is at baseline. GCS: GCS eye subscore is 4. GCS verbal subscore is 5. GCS motor subscore is 6. Sensory: Sensation is intact. Motor: Motor function is intact. Coordination: Coordination is intact. Psychiatric: Mood and Affect: Mood normal. Behavior: Behavior normal. Thought Content: Thought content normal. Procedure Notes Procedures Results No results found for this or any previous visit (from the past 168 hour(s)). No orders to display Orders Placed This Visit No orders of the defined types were placed in this encounter. Medication List At End Of Visit Current Outpatient Medications Medication Sig Dispense Refill busPIRone (BUSPAR) 5 MG tablet Take 1 (one) tablet (5 mg total) by mouth 2 (two) times a day . escitalopram oxalate (LEXAPRO) 10 MG tablet Take 1 (one) tablet (10 mg total) by mouth daily . omeprazole (PRILOSEC) 20 MG capsule TAKE 1 CAPSULE BY MOUTH IN THE MORNING 1/2 HOUR BEFORE BREAKFAST pramipexole (MIRAPEX) 0.125 MG tablet TAKE 1 TABLET BY MOUTH ONCE DAILY IN THE AFTERNOON AND 2 TABS BEFORE BEDTIME amoxicillin (AMOXIL) 875 MG tablet Take 1 (one) tablet (875 mg total) by mouth 2 (two) times a day for 7 days . 14 tablet 0 azithromycin (Z-ZAID) 5 day dose pack Take two tablets by mouth on day 1, then one tablet by mouth daily until finished. . 6 tablet 0 benzonatate (TESSALON) 200 MG capsule Take 1 (one) capsule (200 mg total) by mouth 3 (three) times a day as needed for cough . 20 capsule 0 naproxen (NAPROSYN) 500 MG tablet Take 1 (one) tablet (500 mg total) by mouth 2 (two) times a day with meals . 60 tablet 0 No current facility-administered medications for this visit. Patient Instructions If symptoms worsen you should seek evaluation at the ED. Please follow up with primary care provider in one week. You may take over the counter pain relief medication as directed on package insert. This could include alternating between Acetaminophen (Tylenol) and Ibuprofen (Motrin). Be sure to avoid doubling NSAIDS such as Ibuprofen, Aleve, and Aspirin. documented in this encounter [facility] 03-15-2022 History of Presen t illness Narrative Subjective Patient is here with a complaint of having cough for the last 5 days. Patient ID: Fabiana Jerry is a 26 y.o. female. HPI 26 y.o. female has history of chronic knee joint pain, depression anxiety, restless leg syndrome, GERD. According the patient she started having cough runny nose and headache about 5 days ago. No associated fever chills no chest pain shortness breath no nausea vomiting. Review of Systems Constitutional: Negative for chills and fever. HENT: Positive for rhinorrhea. Negative for congestion, ear pain and sore throat. Respiratory: Positive for cough. Negative for shortness of breath. Cardiovascular: Negative for chest pain, palpitations and leg swelling. Gastrointestinal: Negative for abdominal distention, abdominal pain, blood in stool, constipation, diarrhea, nausea and vomiting. Endocrine: Negative for cold intolerance, heat intolerance, polydipsia, polyphagia and polyuria. Genitourinary: Negative for decreased urine volume, dysuria, enuresis and frequency. Musculoskeletal: Negative for back pain, joint swelling and myalgias. Neurological: Positive for headaches. Negative for dizziness, weakness and numbness. Hematological: Negative for adenopathy. Does not bruise/bleed easily. Objective BP 131/87 (BP Location: Right arm, Patient Position: Sitting, BP Cuff Size: Adult) Pulse (!) 105 Temp 98.2 F (36.8 C) (Temporal) Ht 5' 2 Wt 82.8 kg (182 lb 9.6 oz) LMP 02/23/2022 (Exact Date) SpO2 96% BMI 33.40 kg/m Physical Exam Vitals and nursing note reviewed. Constitutional: General: She is not in acute distress. Appearance: She is well-developed. She is not diaphoretic. HENT: Head: Normocephalic and atraumatic. Right Ear: Tympanic membrane, ear canal and external ear normal. Left Ear: Tympanic membrane, ear canal and external ear normal. Nose: Congestion present. Mouth/Throat: Mouth: Mucous membranes are moist. Pharynx: Oropharynx is clear. No oropharyngeal exudate. Eyes: General: No scleral icterus. Right eye: No discharge. Left eye: No discharge. Conjunctiva/sclera: Conjunctivae normal. Pupils: Pupils are equal, round, and reactive to light. Neck: Thyroid: No thyromegaly. Vascular: No JVD. Cardiovascular: Rate and Rhythm: Normal rate and regular rhythm. Heart sounds: Normal heart sounds. Pulmonary: Effort: Pulmonary effort is normal. No respiratory distress. Breath sounds: No wheezing or rales. Comments: Bronchial breathing Chest: Chest wall: No tenderness. Abdominal: General: Bowel sounds are normal. There is no distension. Palpations: Abdomen is soft. Tenderness: There is no abdominal tenderness. Musculoskeletal: General: No tenderness. Cervical back: Normal range of motion and neck supple. Lymphadenopathy: Cervical: No cervical adenopathy. Skin: General: Skin is warm and dry. Neurological: Mental Status: She is alert and oriented to person, place, and time. Active Home Medications Medication Sig Take Last Dose On Take Morning of Surgery Comment(s) busPIRone (BUSPAR) 5 MG tablet Take 1 (one) tablet (5 mg total) by mouth 2 (two) times a day . escitalopram oxalate (LEXAPRO) 10 MG tablet Take 1 (one) tablet (10 mg total) by mouth daily . naproxen (NAPROSYN) 500 MG tablet Take 1 (one) tablet (500 mg total) by mouth 2 (two) times a day with meals . omeprazole (PRILOSEC) 20 MG capsule TAKE 1 CAPSULE BY MOUTH IN THE MORNING 1/2 HOUR BEFORE BREAKFAST pramipexole (MIRAPEX) 0.125 MG tablet TAKE 1 TABLET BY MOUTH ONCE DAILY IN THE AFTERNOON AND 2 TABS BEFORE BEDTIME azithromycin (Z-ZAID) 5 day dose pack Take two tablets by mouth on day 1, then one tablet by mouth daily until finished. . benzonatate (TESSALON) 100 MG capsule Take 1 (one) capsule (100 mg total) by mouth 3 (three) times a day as needed for cough . Assessment/Plan: Diagnoses and all orders for this visit: Viral syndrome - COVID-19, Molecular - POC Influenza A - POC Influenza B Acute bronchitis, unspecified organism - azithromycin (Z-ZAID) 5 day dose pack; Take two tablets by mouth on day 1, then one tablet by mouth daily until finished. . - benzonatate (TESSALON) 100 MG capsule; Take 1 (one) capsule (100 mg total) by mouth 3 (three) times a day as needed for cough . Test for COVID-19, influenza a and B are negative. Since she is showing bronchial breathing in the lungs I would give her a course of antibiotic including Z-Zaid to be taken as directed and Tessalon 400 mg 3 times a day as needed for cough. To drink a lot of fluids. We will see her back as needed. documented in this encounter [facility] 03-07-2022 History of Presen t illness Narrative Subjective Patient is here for follow up of her knee pain, depression anxiety , gerd No complaints. Needs refill. Patient ID: Fabiana Jerry is a 26 y.o. female. HPI 26 y.o. female has history of chronic knee joint pain, depression anxiety, restless leg syndrome, GERD. Still has knee pain, takes naproxen as needed , needs refill. Her depression is better, And her gerd is controlled Recently she is seen in urgent care for her ear infection and current she is on keflex. And getting better. Review of Systems Constitutional: Negative for chills and fever. HENT: Negative for congestion, ear pain, rhinorrhea and sore throat. Respiratory: Negative for cough and shortness of breath. Cardiovascular: Negative for chest pain, palpitations and leg swelling. Gastrointestinal: Negative for abdominal distention, abdominal pain, blood in stool, constipation, diarrhea, nausea and vomiting. Endocrine: Negative for cold intolerance, heat intolerance, polydipsia, polyphagia and polyuria. Genitourinary: Negative for decreased urine volume, dysuria, enuresis and frequency. Musculoskeletal: Positive for arthralgias. Negative for back pain, joint swelling and myalgias. Neurological: Negative for dizziness, weakness, numbness and headaches. Hematological: Negative for adenopathy. Does not bruise/bleed easily. Objective BP 122/81 (BP Location: Right arm, Patient Position: Sitting, BP Cuff Size: Adult) Pulse 76 Temp 98.3 F (36.8 C) (Temporal) Ht 5' 2 Wt 84 kg (185 lb 3.2 oz) LMP 02/23/2022 (Exact Date) SpO2 97% BMI 33.87 kg/m Physical Exam Vitals and nursing note reviewed. Constitutional: General: She is not in acute distress. Appearance: She is well-developed. She is not diaphoretic. HENT: Head: Normocephalic and atraumatic. Right Ear: Tympanic membrane, ear canal and external ear normal. Left Ear: Tympanic membrane, ear canal and external ear normal. Mouth/Throat: Pharynx: No oropharyngeal exudate. Eyes: General: No scleral icterus. Right eye: No discharge. Left eye: No discharge. Conjunctiva/sclera: Conjunctivae normal. Pupils: Pupils are equal, round, and reactive to light. Neck: Thyroid: No thyromegaly. Vascular: No JVD. Cardiovascular: Rate and Rhythm: Normal rate and regular rhythm. Heart sounds: Normal heart sounds. Pulmonary: Effort: Pulmonary effort is normal. No respiratory distress. Breath sounds: Normal breath sounds. No wheezing or rales. Chest: Chest wall: No tenderness. Abdominal: General: Bowel sounds are normal. There is no distension. Palpations: Abdomen is soft. Tenderness: There is no abdominal tenderness. Musculoskeletal: General: No tenderness. Cervical back: Normal range of motion and neck supple. Lymphadenopathy: Cervical: No cervical adenopathy. Skin: General: Skin is warm and dry. Neurological: Mental Status: She is alert and oriented to person, place, and time. Active Home Medications Medication Sig Take Last Dose On Take Morning of Surgery Comment(s) busPIRone (BUSPAR) 5 MG tablet Take 1 (one) tablet (5 mg total) by mouth 2 (two) times a day . cephALEXin (KEFLEX) 500 MG capsule Take 1 (one) capsule (500 mg total) by mouth 2 (two) times a day . escitalopram oxalate (LEXAPRO) 10 MG tablet Take 1 (one) tablet (10 mg total) by mouth daily . omeprazole (PRILOSEC) 20 MG capsule TAKE 1 CAPSULE BY MOUTH IN THE MORNING 1/2 HOUR BEFORE BREAKFAST pramipexole (MIRAPEX) 0.125 MG tablet TAKE 1 TABLET BY MOUTH ONCE DAILY IN THE AFTERNOON AND 2 TABS BEFORE BEDTIME naproxen (NAPROSYN) 500 MG tablet Take 1 (one) tablet (500 mg total) by mouth 2 (two) times a day with meals . No visits with results within 1 Month(s) from this visit. Latest known visit with results is: Lab Draw on 02/01/2022 Component Date Value Ref Range Status TSH 02/01/2022 2.21 0.27 - 4.20 mcIU/mL Final Sodium 02/01/2022 140 135 - 145 mmol/L Final Potassium 02/01/2022 4.3 3.5 - 5.1 mmol/L Final Chloride 02/01/2022 107 98 - 108 mmol/L Final Bicarbonate 02/01/2022 24 21 - 32 mmol/L Final Anion Gap 02/01/2022 13 10 - 20 mmol/L Final Glucose 02/01/2022 84 65 - 99 mg/dL Final BUN 02/01/2022 14 8 - 25 mg/dL Final Creatinine 02/01/2022 0.65 0.40 - 1.10 mg/dL Final eGFR 02/01/2022 125 >=60 mL/min/1.73 m2 Final Estimated GFR was calculated using the 2020 CKD-EPI creatinine equation. BUN/Creatinine Ratio 02/01/2022 21.5 (H) 10.0 - 20.0 Final Total Protein 02/01/2022 6.5 6.0 - 8.0 g/dL Final Albumin 02/01/2022 3.5 3.2 - 5.2 g/dL Final Calcium 02/01/2022 8.4 8.4 - 10.2 mg/dL Final Alkaline Phosphatase 02/01/2022 71 40 - 140 U/L Final AST 02/01/2022 19 0 - 45 U/L Final Total Bilirubin 02/01/2022 0.5 0.0 - 1.3 mg/dL Final ALT 02/01/2022 27 14 - 65 U/L Final WBC 02/01/2022 5.76 4.50 - 11.00 K/mcL Final RBC 02/01/2022 4.58 4.00 - 5.20 M/mcL Final Hemoglobin 02/01/2022 12.6 12.0 - 16.0 g/dL Final Hematocrit 02/01/2022 38.3 36.0 - 46.0 % Final MCV 02/01/2022 83.6 80.0 - 100.0 fL Final MCH 02/01/2022 27.5 26.0 - 34.0 pg Final MCHC 02/01/2022 32.9 31.0 - 37.0 g/dL Final Platelets 02/01/2022 239 150 - 400 K/mcL Final RDW - CV 02/01/2022 12.9 11.6 - 14.8 % Final MPV 02/01/2022 11.1 9.4 - 12.4 fL Final Neutrophils 02/01/2022 62.0 % Final Lymphocytes 02/01/2022 20.0 % Final Monocytes 02/01/2022 15.8 % Final Eosinophils 02/01/2022 1.4 % Final Basophils 02/01/2022 0.5 % Final IG Percent 02/01/2022 0.30 % Final The IG parameter is the percentage of metamyelocytes, myelocytes and promyelocytes. An immature granulocyte count (IG) of 1% or more suggests the possibility of infection, an IG count of 3% is very likely related to an infection. Neutrophils Abs 02/01/2022 3.57 1.70 - 7.00 K/mcL Final Lymphocytes Abs 02/01/2022 1.15 0.90 - 4.00 K/mcL Final Monocytes Abs 02/01/2022 0.91 (H) 0.30 - 0.90 K/mcL Final Eosinophils Abs 02/01/2022 0.08 0.00 - 0.50 K/mcL Final Basophils Abs 02/01/2022 0.03 0.00 - 0.30 K/mcL Final IG Absolute 02/01/2022 0.02 0.00 - 0.30 K/mcL Final Nucleated RBC 02/01/2022 0.0 % Final Nucleated RBC Abs 02/01/2022 0.00 0.00 - 0.00 K/mcL Final Assessment/Plan: Diagnoses and all orders for this visit: Chronic pain of right knee - naproxen (NAPROSYN) 500 MG tablet; Take 1 (one) tablet (500 mg total) by mouth 2 (two) times a day with meals . Anxiety and depression Restless leg syndrome Patient is told to continue current medications Told her to use tylenol 500 mg every 6 hrs as needed for pain. If no help then use naproxen with meal. Return to clinic in 6 months or early as needed. documented in this encounter [facility] 01-30-2022 History of Presen t illness Narrative Over the last 2 weeks, how often have you been bothered by any of the following problems? Little interest or pleasure in doing things: Not at all Feeling down, depressed, or hopeless: Several days PHQ-2 Total Score: 1 Trouble falling or staying asleep, or sleeping too much: Nearly every day Feeling tired or having little energy: Nearly every day Poor appetite or overeating: Nearly every day Feeling bad about yourself - or that you are a failure or have let yourself or your family down: Not at all Trouble concentrating on things, such as reading the newspaper or watching television: Not at all Moving or speaking so slowly that other people could have noticed. Or the opposite - being so fidgety or restless that you have been moving around a lot more than usual: Not at all Thoughts that you would be better off , or of hurting yourself in some way: Not at all PHQ-9 Total Score: 10 If you checked off any problems, how difficult have these problems made it for you to do your work, take care of things at home, or get along with other people?: Not difficult at all HISTORY AND PHYSICAL Patient Name: Fabiana Jerry : 1995+ Chief Complaint/Reason for Visit: Patient is here for the first time comes about having right knee pain. She also comes about having feeling tired and fatigued almost on daily basis. History of Present Illness: 26 y.o. female has history of chronic knee joint pain, depression anxiety, restless leg syndrome, GERD. Patient says she has been having pain and soreness in the right knee joint for some time. Denies any history of fall or injury. She is taking naproxen needs refill. She complains about having tiredness and fatigue almost every day. She says she was diagnosed to have hypoglycemia when she was in the school. Her depression anxiety she is taking Lexapro and BuSpar. For her restless leg syndrome she is on Mirapex. For her GERD she is taking Prilosec. History: Past Medical History: Diagnosis Date Anxiety Depression GERD (gastroesophageal reflux disease) Migraine Restless leg Past Surgical History: Procedure Laterality Date SALPINGECTOMY OPEN BILATERAL Family History Problem Relation Age of Onset Depression Mother Cancer Mother Hypertension Father Arthritis Maternal Grandmother Asthma Maternal Grandmother Social History Socioeconomic History Marital status: Single Tobacco Use Smoking status: Never Smokeless tobacco: Never Vaping Use Vaping Use: Never used Substance and Sexual Activity Alcohol use: Never Drug use: Never Sexual activity: Yes Social Determinants of Health Financial Resource Strain: Low Risk Difficulty of Paying Living Expenses: Not hard at all Food Insecurity: No Food Insecurity Worried About Running Out of Food in the Last Year: Never true Ran Out of Food in the Last Year: Never true Transportation Needs: No Transportation Needs Lack of Transportation (Medical): No Lack of Transportation (Non-Medical): No Physical Activity: Insufficiently Active Days of Exercise per Week: 3 days Minutes of Exercise per Session: 10 min Stress: No Stress Concern Present Feeling of Stress : Only a little Social Connections: Moderately Isolated Frequency of Communication with Friends and Family: Three times a week Frequency of Social Gatherings with Friends and Family: Once a week Attends [employer] Services: Never Active Member of Clubs or Organizations: Yes Attends Club or Organization Meetings: Never Marital Status: Never Housing Stability: Low Risk Unable to Pay for Housing in the Last Year: No Number of Places Lived in the Last Year: 2 Unstable Housing in the Last Year: No Allergy Information: I have reviewed the patient's allergies. Patient has no known allergies. Home Medications: Outpatient Medications as of 01/30/2022 Medication Sig busPIRone (BUSPAR) 5 MG tablet Take 1 (one) tablet (5 mg total) by mouth 2 (two) times a day . escitalopram oxalate (LEXAPRO) 10 MG tablet Take 1 (one) tablet (10 mg total) by mouth daily . omeprazole (PRILOSEC) 20 MG capsule TAKE 1 CAPSULE BY MOUTH IN THE MORNING 1/2 HOUR BEFORE BREAKFAST pramipexole (MIRAPEX) 0.125 MG tablet TAKE 1 TABLET BY MOUTH ONCE DAILY IN THE AFTERNOON AND 2 TABS BEFORE BEDTIME naproxen (NAPROSYN) 500 MG tablet Take 1 (one) tablet (500 mg total) by mouth 2 (two) times a day with meals . Review of Systems: Review of Systems Constitutional: Positive for fatigue. Negative for chills and fever. HENT: Negative for congestion, ear pain, rhinorrhea and sore throat. Respiratory: Negative for cough and shortness of breath. Cardiovascular: Negative for chest pain, palpitations and leg swelling. Gastrointestinal: Negative for abdominal distention, abdominal pain, blood in stool, constipation, diarrhea, nausea and vomiting. Endocrine: Negative for cold intolerance, heat intolerance, polydipsia, polyphagia and polyuria. Genitourinary: Negative for decreased urine volume, dysuria, enuresis and frequency. Musculoskeletal: Negative for back pain, joint swelling and myalgias. Right knee pain Neurological: Negative for dizziness, weakness, numbness and headaches. Hematological: Negative for adenopathy. Does not bruise/bleed easily. Physical Examination: Vital Signs: BP 127/74 (BP Location: Right arm, Patient Position: Sitting, BP Cuff Size: Adult) Pulse 72 Temp 97.6 F (36.4 C) (Temporal) Ht 5' 2 Wt 86.4 kg (190 lb 6.4 oz) SpO2 98% BMI 34.82 kg/m Physical Exam Vitals and nursing note reviewed. Constitutional: General: She is not in acute distress. Appearance: She is well-developed. She is not diaphoretic. HENT: Head: Normocephalic and atraumatic. Mouth/Throat: Pharynx: No oropharyngeal exudate. Eyes: General: No scleral icterus. Right eye: No discharge. Left eye: No discharge. Conjunctiva/sclera: Conjunctivae normal. Pupils: Pupils are equal, round, and reactive to light. Neck: Thyroid: No thyromegaly. Vascular: No JVD. Cardiovascular: Rate and Rhythm: Normal rate and regular rhythm. Heart sounds: Normal heart sounds. Pulmonary: Effort: Pulmonary effort is normal. No respiratory distress. Breath sounds: Normal breath sounds. No wheezing or rales. Chest: Chest wall: No tenderness. Abdominal: General: Bowel sounds are normal. There is no distension. Palpations: Abdomen is soft. Tenderness: There is no abdominal tenderness. Musculoskeletal: General: No tenderness. Cervical back: Normal range of motion and neck supple. Lymphadenopathy: Cervical: No cervical adenopathy. Skin: General: Skin is warm and dry. Neurological: Mental Status: She is alert and oriented to person, place, and time. Laboratory and Additional Data Reviewed: Diagnoses and all orders for this visit: Chronic pain of right knee - naproxen (NAPROSYN) 500 MG tablet; Take 1 (one) tablet (500 mg total) by mouth 2 (two) times a day with meals . Fatigue, unspecified type - TSH; Future - CBC and Differential; Future - Comprehensive Metabolic Panel; Future Anxiety and depression Restless leg syndrome Patient is asked to continue taking naproxen 500 g twice a day as needed with meal for her right knee pain. Altered to get TSH, CBC, comprehensive metabolic panel. We will see her back in a month or earlier needed documented in this encounter [facility] 12-10-2021 Instructions Georgiana Melton CNP - 12/10/2021 11:29 AM EDT Recommend He/she should return to urgent care, make an appointment with their family physician, or go to the emergency room if symptoms persist or get acutely worse. Take over the counter tylenol or ibuprofen as needed for fever or pain- follow package instructions. SALT WATER GARGLE FOLLOW UP WITH PRIMARY USE HUMIDIFIER AT HOME REST AND HYDRATE WELL Take medication as prescribed You can also call [phone] TO HELP WITH FINDINGS PRIMARY DOCTORS AND/OR SPECIALIST PROVIDERS. [facility] COVID-19 Instructions We will do our best to update you as soon as we receive your test results, but if we had to send your test to be run at the lab, you may see the results on Gl[facility]hart or receive a call from the health department before we are able to contact you. You should receive a call from our COVID-19 results provider as soon as possible. [email or web address] Regardless of when you end isolation, avoid being around people who are more likely to get very sick from COVID-19 until at least day 11. Remember to wear a high-quality mask when indoors around others at home and in public and not go places where you are unable to wear a mask until you are able to discontinue masking, including public transportation and travel settings. [email or web address] What should I do if I was exposed? Quarantine is no longer recommended after an exposure in vaccinated or unvaccinated individuals. Instead, it is recommended that all exposed individuals: - Wear a well-fitting mask around other people for 10 days (regardless of symptoms or test results) AND - Get a COVID test on day 5 after exposure (with or without symptoms) What counts as an exposure? - You were within 6 feet of someone who has COVID-19 for at least 15 minutes - You provided care at home to someone who is sick with COVID-19 - You had direct physical contact with the person (touched, hugged, or kissed them) - You shared eating or drinking utensils - They sneezed, coughed, or somehow got respiratory droplets on you When and How Will I Get Results? Tests performed in the clinic will be available within 15-20 minutes from initiation of test. If your test was sent out to the lab for testing, it could take anywhere from 1-5 days after your specimen is collected. The provider/practice who placed the order for your test will notify you of your results. - If you have an active [employer] account, and your COVID-19 test is negative (not detected), then you will be notified through your [employer] inkt account. You should call the urgent care if you have any further questions. - If your COVID-19 test is positive (detected), you will receive a phone call to discuss your results and answer any questions you might have at that time. Please make sure [facility] has your updated phone number so we can contact you. [facility] will notify the [facility] of any positive results to comply with state regulations. What Happens if I Develop Worsening COVID-19 Symptoms? All patients should self-quarantine at home until they receive their test results. If symptoms worsen after you ended isolation, restart your isolation at day 0. Contact your PCP or return to the urgent care at any time if you develop any of the following: - A fever of 103 degrees F (39.4 C) or higher - A fever that lasts more than 3 days without medication - A fever that returns after being gone for more than 24 hours - Chest pain or difficulty breathing - A worsening of current symptoms What Do I Do If I am Sick? - Wear a high-quality mask if you must be around others at home and in public. - Do not go places where you are unable to wear a mask. - Do not travel. - Stay home and separate from others as much as possible. Use a separate bathroom, if possible. - Take steps to improve ventilation at home, if possible. - Don t share personal household items, like cups, towels, and utensils. - Monitor your symptoms. If you have an emergency warning sign (like trouble breathing), seek emergency medical care immediately. Call First: If you do need to seek urgent medical care, call the facility first to let them know you are on your way Other COVID Questions? CDC: https://www.cdc.gov/coronavirus /2019-ncov/your-health/isolatio n.html [place] Department of Health - Website: https://coronavirus.[place].gov/wp s/portal/gov/covid-19/home - Hotline: 055-8-YNR-ODH (578-013-3784) [facility]:[email or web address] The following attachments cannot be sent through Care Everywhere.URI (Upper Respiratory Infection): Viral (Luxembourger)documented in this encounter [facility] 12-10-2021 History of Presen t illness Narrative Images from the original note were not included. Patient Name: [facility] Location: Fabiana Jerry [address] [place] [address], [address] [facility] [id number] Date Of : Date Of Visit: 1995 12/10/2021 MRN# Provider: [id number] Georgiana Melton CNP Chief Complaint Patient presents with Illness Woke up yesterday- ST, head congested, cough, chest hurts from cough-took sinus meds and it didn't help Assessment & Plan 1. Suspected COVID-19 virus infection COVID-19, Molecular Ambulatory referral to [facility] 2. Upper respiratory tract infection, unspecified type POC Strep A - Molecular Ambulatory referral to [facility] brompheniramine-pseudoePHEDrine -DM 2-30-10 mg/5 mL syrup oxymetazoline (AFRIN) 0.05 % nasal spray No follow-ups on file. Medical Decision Making Discussed treatment plan and diagnosis with patient - per HPI , poc covid neg. , POC STREP neg. AND exam- DIAGNOSIS OF SUSPECTED COVID AND URI is made FOR WHICH BROMFED DM AND AFRIN NASAL SPRAY ARE PRESCRIBED. Instructed patient to follow up with Primary- REFERRAL ORDERED . Education info. Provided to patient on COVID GENERAL GUIDELINES AND home management of symptoms along with S/S of when to seek further evaluation by a provider. Patient verbalized understanding and All questions answered. Instructed patient to take or parent to give patient - medication as prescribed Differential diagnosis -COVID, sinusitis , bronchitis, PNEUMONEMIA , ALLERGIC RHINITIS, URI VIRAL, strep throat, tonsillitis. Additional Clinical Comments Educated patient and/or guardian about signs and symptoms that would warrant further immediate evaluation. Recommended that they should return to urgent care, make an appointment with their family physician, or go to the emergency room if symptoms persist or get acutely worse. Recommended follow up within the next week with their PCP or to get established with a PCP soon in order to follow up appropriately. Subjective 26 y.o. female presents with Illness (Woke up yesterday- ST, head congested, cough, chest hurts from cough-took sinus meds and it didn't help) URI This is a new problem. The current episode started yesterday. The problem has been gradually worsening. There has been no fever. Associated symptoms include congestion, coughing, ear pain, headaches, rhinorrhea and a sore throat. Pertinent negatives include no chest pain, diarrhea, nausea, sinus pain or vomiting. She has tried NSAIDs for the symptoms. The treatment provided mild relief. Review Of Systems Review of Systems Constitutional: Positive for fatigue. Negative for chills, diaphoresis and fever. HENT: Positive for congestion, ear pain, rhinorrhea, sinus pressure and sore throat. Negative for sinus pain. Respiratory: Positive for cough. Negative for chest tightness and shortness of breath. Cardiovascular: Negative for chest pain. Gastrointestinal: Negative for diarrhea, nausea and vomiting. Musculoskeletal: Negative for myalgias. Neurological: Positive for headaches. Patient denies possible Medical History Past Medical History: Diagnosis Date Anxiety Depression GERD (gastroesophageal reflux disease) Migraine Restless leg Past Surgical History: Procedure Laterality Date SALPINGECTOMY OPEN BILATERAL There is no problem list on file for this patient. Social History Social History Tobacco Use Smoking status: Never Smokeless tobacco: Never Family History History reviewed. No pertinent family history. Objective Physical Exam BP 116/80 Pulse 80 Temp 99 F (37.2 C) (Infrared) Resp 16 Ht 5' 2 Wt 84.8 kg (187 lb) SpO2 99% BMI 34.20 kg/m Vision/Hearing Exam:No results found. Physical Exam Vitals and nursing note reviewed. Constitutional: General: She is awake. She is not in acute distress. Appearance: Normal appearance. She is well-developed and well-groomed. She is not ill-appearing, toxic-appearing or diaphoretic. HENT: Head: Normocephalic and atraumatic. Right Ear: Hearing, tympanic membrane, ear canal and external ear normal. Left Ear: Hearing, tympanic membrane, ear canal and external ear normal. Nose: Congestion present. No nasal tenderness, mucosal edema or rhinorrhea. Right Sinus: Maxillary sinus tenderness (MILD) present. No frontal sinus tenderness. Left Sinus: Maxillary sinus tenderness (MILD) present. No frontal sinus tenderness. Mouth/Throat: Lips: [place]. No lesions. Mouth: Mucous membranes are moist. Tongue: No lesions. Palate: No lesions. Pharynx: Uvula midline. No pharyngeal swelling, oropharyngeal exudate, posterior oropharyngeal erythema or uvula swelling. Tonsils: No tonsillar exudate or tonsillar abscesses. Comments: PND NOTED Cardiovascular: Rate and Rhythm: Normal rate and regular rhythm. Heart sounds: Normal heart sounds. Pulmonary: Effort: Pulmonary effort is normal. No respiratory distress. Breath sounds: Normal breath sounds. No stridor. No wheezing, rhonchi or rales. Lymphadenopathy: Head: Right side of head: No submental, submandibular, tonsillar, preauricular or posterior auricular adenopathy. Left side of head: No submental, submandibular, tonsillar, preauricular or posterior auricular adenopathy. Cervical: No cervical adenopathy. Neurological: General: No focal deficit present. Mental Status: She is alert and oriented to person, place, and time. Psychiatric: Mood and Affect: Mood normal. Behavior: Behavior normal. Behavior is cooperative. Procedure Notes Procedures Results Recent Results (from the past 168 hour(s)) COVID-19, Molecular Collection Time: 12/10/21 11:28 AM Specimen: Nasal; Swab Result Value Ref Range SARS-CoV-2 Not Detected Not Detected POC Strep A - Molecular Collection Time: 12/10/21 11:30 AM Result Value Ref Range Strep A Screen Negative Negative No orders to display Orders Placed This Visit Orders Placed This Encounter Procedures Ambulatory referral to Family Practice COVID-19, Molecular POC Strep A - Molecular Medication List At End Of Visit Current Outpatient Medications Medication Sig Dispense Refill busPIRone (BUSPAR) 5 MG tablet Take 1 (one) tablet (5 mg total) by mouth 2 (two) times a day . escitalopram oxalate (LEXAPRO) 10 MG tablet Take 1 (one) tablet (10 mg total) by mouth daily . naproxen (NAPROSYN) 500 MG tablet TAKE 1 TABLET BY MOUTH TWICE DAILY WITH FOOD NEEDED FOR PAIN OR INFLAMMATION omeprazole (PRILOSEC) 20 MG capsule TAKE 1 CAPSULE BY MOUTH IN THE MORNING 1/2 HOUR BEFORE BREAKFAST pramipexole (MIRAPEX) 0.125 MG tablet TAKE 1 TABLET BY MOUTH ONCE DAILY IN THE AFTERNOON AND 2 TABS BEFORE BEDTIME brompheniramine-pseudoePHEDrine -DM 2-30-10 mg/5 mL syrup Take 10 mL by mouth every 6 (six) hours as needed . 200 mL 0 oxymetazoline (AFRIN) 0.05 % nasal spray Instill 2 (two) sprays into each nostril 2 (two) times a day for 3 days . 30 mL 0 No current facility-administered medications for this visit. Patient Instructions Recommend He/she should return to urgent care, make an appointment with their family physician, or go to the emergency room if symptoms persist or get acutely worse. Take over the counter tylenol or ibuprofen as needed for fever or pain- follow package instructions. SALT WATER GARGLE FOLLOW UP WITH PRIMARY USE HUMIDIFIER AT HOME REST AND HYDRATE WELL Take medication as prescribed You can also call [phone] TO HELP WITH FINDINGS PRIMARY DOCTORS AND/OR SPECIALIST PROVIDERS. [facility] COVID-19 Instructions We will do our best to update you as soon as we receive your test results, but if we had to send your test to be run at the lab, you may see the results on [employer] inkt or receive a call from the health department before we are able to contact you. You should receive a call from our COVID-19 results provider as soon as possible. [email or web address] Regardless of when you end isolation, avoid being around people who are more likely to get very sick from COVID-19 until at least day 11. Remember to wear a high-quality mask when indoors around others at home and in public and not go places where you are unable to wear a mask until you are able to discontinue masking, including public transportation and travel settings. [email or web address] What should I do if I was exposed? Quarantine is no longer recommended after an exposure in vaccinated or unvaccinated individuals. Instead, it is recommended that all exposed individuals: - Wear a well-fitting mask around other people for 10 days (regardless of symptoms or test results) AND - Get a COVID test on day 5 after exposure (with or without symptoms) What counts as an exposure? - You were within 6 feet of someone who has COVID-19 for at least 15 minutes - You provided care at home to someone who is sick with COVID-19 - You had direct physical contact with the person (touched, hugged, or kissed them) - You shared eating or drinking utensils - They sneezed, coughed, or somehow got respiratory droplets on you When and How Will I Get Results? Tests performed in the clinic will be available within 15-20 minutes from initiation of test. If your test was sent out to the lab for testing, it could take anywhere from 1-5 days after your specimen is collected. The provider/practice who placed the order for your test will notify you of your results. - If you have an active [employer] account, and your COVID-19 test is negative (not detected), then you will be notified through your MyChart account. You should call the urgent care if you have any further questions. - If your COVID-19 test is positive (detected), you will receive a phone call to discuss your results and answer any questions you might have at that time. Please make sure [facility] has your updated phone number so we can contact you. [facility] will notify the [facility] of any positive results to comply with state regulations. What Happens if I Develop Worsening COVID-19 Symptoms? All patients should self-quarantine at home until they receive their test results. If symptoms worsen after you ended isolation, restart your isolation at day 0. Contact your PCP or return to the urgent care at any time if you develop any of the following: - A fever of 103 degrees F (39.4 C) or higher - A fever that lasts more than 3 days without medication - A fever that returns after being gone for more than 24 hours - Chest pain or difficulty breathing - A worsening of current symptoms What Do I Do If I am Sick? - Wear a high-quality mask if you must be around others at home and in public. - Do not go places where you are unable to wear a mask. - Do not travel. - Stay home and separate from others as much as possible. Use a separate bathroom, if possible. - Take steps to improve ventilation at home, if possible. - Don t share personal household items, like cups, towels, and utensils. - Monitor your symptoms. If you have an emergency warning sign (like trouble breathing), seek emergency medical care immediately. Call First: If you do need to seek urgent medical care, call the facility first to let them know you are on your way Other COVID Questions? CDC: https://www.cdc.gov/coronavirus /2019-ncov/your-health/isolatio n.html [facility] - Website: https://coronavirus.[place].gov/wp [place]/portal/gov/covid-19/home - Hotline: 153-4-HPZ-ODH (353-423-4286) [facility]:[email or web address] documented in this encounter [facility] 11-05-2021 Note HNO ID: [id number] Author: Nola Canales APRN.ISI Service: ? Author Type: Nurse Practitioner Type: Progress Notes Filed: 11/05/2021 12:17 PM Note Text: This Team Access Model visit is a virtual encounter. It required patient-provider interaction for the medical decision making as documented below. Patient agrees to the visit: Yes Patient Location: [place] CC: Patient presents with: restless leg HPI Fabiana Jerry is a 26 year old female who is contacted today for a virtual visit. This is an established patient of Dr. Marisa Sue MD. Fabiana Jerry is a 26 year old female who presents today for restless leg refill. Moved recently to [facility] and needs prescriptions sent locally. Also going to establish care with a provider in [place]. States she feels she is doing well with the move. Has had an increase in generalized aches and pains whish she has been taking her naproxen for more often then usual. GERD: controlled with omeprazole, even with increased naproxen usage. Denies heartburn, abdominal pain, difficulty swallowing or any other concerns. RLS: Is prescribed pramipexole three times a day which she does not feel she needs early in the day so skips that dose. Will take one in the evening and one before bed but still sometimes has issues and will need to take a hot shower and massage legs to try to relax them. Weight has decreased to 150lb with diet changes. Is actively trying to lose weight and thinks moving away from toxic family members is helping her make healthier lifestyle choices. REVIEW OF SYSTEMS General: no fevers, no chills, no night sweats, no recurrent infections, no change in appetite, no change in energy, and no significant changes in weight Respiratory: no cough, no wheezing, no shortness of breath, no hemoptysis Cardiovascular: no chest pain, no chest pressure, no palpitations, and no swelling GI: No nausea, vomiting, or diarrhea Neurologic: No weakness, numbness, tingling, dizziness, memory loss, syncope. PAST MEDICAL HISTORY Diagnosis Date Allergic rhinitis Asthma Bilateral ovarian cysts Mental disorder Migraine headache with aura depression Trauma PAST SURGICAL HISTORY Procedure Laterality Date PAST SURGICAL HISTORY OF wisdom teeth and teeth extraction ALLERGIES Patient has no known allergies. MEDICATIONS naproxen (NAPROSYN) 500 mg tablet Take 1 tablet by mouth twice daily as needed (for pain/inflammation). Take with food. busPIRone (BUSPAR) 5 mg tablet Take 5 mg by mouth twice daily. escitalopram oxalate (LEXAPRO) 10 mg tablet Take 10 mg by mouth once daily. pramipexole (MIRAPEX) 0.125 mg tablet Take 1 tablet in afternoon and 2 tablets before bed. omeprazole (PRILOSEC) 20 mg capsule Take 1 capsule by mouth daily before breakfast. 1/2 hr before meal. acetaminophen (TYLENOL) 325 mg tablet Take 650 mg by mouth every 6 hours as needed. FAMILY HISTORY Problem Relation Age of Onset Cervical Cancer Mother 2003 Hyperlipidemia Father other (HTN) Father Breast Cancer Maternal Grandmother Heart Maternal Grandfather Alzheimer's Disease Maternal Grandfather other (Parkinson's Disease) Maternal Grandfather Social History Tobacco Use Smoking status: Former Smokeless tobacco: Never Vaping Use Vaping Use: Never used Substance Use Topics Alcohol use: No Drug use: No EXAM: Virtual visit completed using video, limited exam completed. GENERAL: alert and appropriate, in no distress, well-hydrated, well nourished, and happy, smiling, interactive EYES: no injection and visual acuity is grossly normal RESPIRATORY: breathing non-labored CHEST: equal chest rise with normal respiratory effort DATA REVIEWED: No new labs ASSESSMENT/PLAN: 1. Restless legs - ICD9: 333.94, ICD10: G25.81 (primary diagnosis) - will change pramipexole to 1 tablet in afternoon and 2 before bed. Also with history of iron deficiency anemia, will check to make sure low iron is not cause of increase in this. - CBC + DIFF - IRON + TIBC - FERRITIN BLD - PRAMIPEXOLE 0.125 MG TABLET 2. History of iron deficiency - ICD9: V12.3, ICD10: Z86.39 As above 3. Gastroesophageal reflux disease without esophagitis - ICD9: 530.81, ICD10: K21.9 - controlled with current plan. Will continue for now while still moving and taking naproxen. Prescription instructions reviewed with patient as applicable. Potential red flag symptoms discussed with the patient. Reviewed appropriate action plan to take if red flag symptoms occur. Patient agreeable to treatment plan. During this patient visit I have spent approximately 20 minutes in counseling regarding treatment options, medications, and coordinating care. Nola Canales APRN.[facility] 11-05-2021 History of Presen t illness Narrative This Team Access Model visit is a virtual encounter. It required patient-provider interaction for the medical decision making as documented below. Patient agrees to the visit: Yes Patient Location: [place] CC: Patient presents with: restless leg HPI Fabiana Jerry is a 26 year old female who is contacted today for a virtual visit. This is an established patient of Dr. Marisa Sue MD. Fabiana Jerry is a 26 year old female who presents today for restless leg refill. Moved recently to [facility] and needs prescriptions sent locally. Also going to establish care with a provider in [place]. States she feels she is doing well with the move. Has had an increase in generalized aches and pains whish she has been taking her naproxen for more often then usual. GERD: controlled with omeprazole, even with increased naproxen usage. Denies heartburn, abdominal pain, difficulty swallowing or any other concerns. RLS: Is prescribed pramipexole three times a day which she does not feel she needs early in the day so skips that dose. Will take one in the evening and one before bed but still sometimes has issues and will need to take a hot shower and massage legs to try to relax them. Weight has decreased to 150lb with diet changes. Is actively trying to lose weight and thinks moving away from toxic family members is helping her make healthier lifestyle choices. REVIEW OF SYSTEMS General: no fevers, no chills, no night sweats, no recurrent infections, no change in appetite, no change in energy, and no significant changes in weight Respiratory: no cough, no wheezing, no shortness of breath, no hemoptysis Cardiovascular: no chest pain, no chest pressure, no palpitations, and no swelling GI: No nausea, vomiting, or diarrhea Neurologic: No weakness, numbness, tingling, dizziness, memory loss, syncope. PAST MEDICAL HISTORY Diagnosis Date Allergic rhinitis Asthma Bilateral ovarian cysts Mental disorder Migraine headache with aura depression Trauma PAST SURGICAL HISTORY Procedure Laterality Date PAST SURGICAL HISTORY OF wisdom teeth and teeth extraction ALLERGIES Patient has no known allergies. MEDICATIONS naproxen (NAPROSYN) 500 mg tablet Take 1 tablet by mouth twice daily as needed (for pain/inflammation). Take with food. busPIRone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
[2023-05-08 21:22] LABS: HPV Reflexed? NOT INDICATED
== END | disposition home or self-care (01) ==
LOC: LABSPEC 14:10
PROVIDERS: PCP Internal Medicine; Referring Provider Obstetrics & Gynecology; Visit Provider Obstetrics & Gynecology
DX: Z12.4 Encounter for screening for malignant neoplasm of cervix (principal)
CPT/HCPCS: 88175; G0145